=== PATIENT | female | born 1960 | race Caucasian/White ===

== ENCOUNTER 2017-08-30 14:08 | Emergency (ER) | payer SELFPAY ==
[2017-08-30 14:46] VITALS: BP 149/78; PULSE 88; RESP 18; TEMP 98.1; O2SAT 100
[2017-08-30] MEDS ORDERED: Sodium Chloride 0.9% 1,000 ML IV ONE (15:00)
[2017-08-30] MEDS ORDERED: Sodium Chloride 0.9% 1,000 ML ONE (15:14)
[2017-08-30 15:18] LABS: BASO # 0.1 K/uL (0.0-0.2); EOS # 0.3 K/uL (0.0-0.7); EOS % 2.2 % (0.0-4.0); HEMOGLOBIN 14.2 g/dL (11.0-16.0); LYMPH # 4.7 K/uL (1.0-4.3); LYMPH % 40.3 % (20.0-40.0); MEAN CELL VOLUME 83.3 fL (81.0-99.0); MEAN CORPUSCULAR HEMOGLOBIN 28.1 pg (27.0-31.0); MEAN CORPUSCULAR HGB CONC 33.7 g/dL (33.0-37.0); MONO # 0.9 K/uL (0.0-0.8); MONO % 7.9 % (0.0-10.0); NEUT # 5.6 K/uL (1.8-7.0); NEUT % 48.6 % (50.0-75.0); RBC 5.06 Mil/uL (3.80-5.20); RED CELL DISTRIBUTION WIDTH 13.9 % (11.5-14.5); WHITE BLOOD COUNT 11.6 K/uL (4.8-10.8)
[2017-08-30 15:25] LABS: SQUAMOUS EPITHIAL 2 /hpf (0-5); URINE BACTERIA MANY (<OCC); URINE BILIRUBIN NEGATIVE (NEGATIVE); URINE BLOOD 1+ (NEGATIVE); URINE CLARITY Clear (Clear); URINE COLOR Straw (YELLOW); URINE GLUCOSE (UA) NORMAL (Normal); URINE LEUKOCYTE ESTERASE NEG Leu/uL (Negative); URINE NITRATE NEGATIVE (NEGATIVE); URINE PROTEIN NEGATIVE (NEGATIVE); URINE UROBILINOGEN NORMAL mg/dL (0.2-1.0)
[2017-08-30 15:31] LABS: ALBUMIN 4.1 g/dL (3.5-5.0); ALT/SGPT 43 U/L (9-52); AST/SGOT 35 U/L (14-36); BLOOD UREA NITROGEN 9 mg/dL (7-17); CALCIUM 8.6 mg/dl (8.6-10.4); GFR AFRICAN-AMERICAN > 60; GFR NON-AFRICAN AMERICAN > 60; LIPASE 92 U/L (23-300)
--- NOTE | 2017-08-30 16:32 | C.PDOC ---
Time Seen by Provider: 08/30/17 14:48 Chief Complaint (Nursing): Abdominal Pain History Per: Patient, Family Onset/Duration Of Symptoms: Days (about 2 weeks) Current Symptoms Are (Timing): Still Present Severity: Moderate Location Of Pain/Discomfort: Epigastric Associated Symptoms: Nausea, Vomiting Exacerbating Factors: Food Alleviating Factors: None Additional History Per: Prior Records Past Medical History Reviewed: Historical Data, Nursing Documentation, Vital Signs Vital Signs: Last Vital Signs Temp 98.1 F 08/30/17 14:43 Pulse 88 08/30/17 14:43 Resp 18 08/30/17 14:43 BP 149/78 08/30/17 14:43 Pulse Ox 100 08/30/17 14:43 - Medical History PMH: No Chronic Diseases Other Surgeries: Hysterectomy Family History: States: Unknown Family Hx - Social History Hx Alcohol Use: No Hx Substance Use: No - Immunization History Hx Tetanus Toxoid Vaccination: No Hx Influenza Vaccination: No Hx Pneumococcal Vaccination: No Review Of Systems Except As Marked, All Systems Reviewed And Found Negative. Constitutional: Negative for: Fever Cardiovascular: Negative for: Chest Pain Respiratory: Negative for: Shortness of Breath Gastrointestinal: Positive for: Nausea, Vomiting, Abdominal Pain. Negative for : Melena, Hematochezia, Hematemesis Genitourinary: Negative for: Dysuria Musculoskeletal: Negative for: Neck Pain Skin: Negative for: Rash Neurological: Positive for: Headache. Negative for: Weakness, Numbness Physical Exam - Physical Exam Appears: Non-toxic, No Acute Distress Skin: Normal Color, Warm, Dry, No Rash Head: Atraumatic, Normacephalic Eye(s): bilateral: Normal Inspection, PERRL, EOMI Neck: Normal ROM, Supple Cardiovascular: Rhythm Regular Respiratory: Normal Breath Sounds, No Accessory Muscle Use Gastrointestinal/Abdominal: Soft, Tenderness (mild epigastric), No Guarding, No Rebound Back: No CVA Tenderness Extremity: Normal ROM Neurological/Psych: Oriented x3, Normal Motor, Normal Sensation ED Course And Treatment - Laboratory Results Result Diagrams: 08/30/17 15:13 08/30/17 15:13 O2 Sat by Pulse Oximetry: 100 Pulse Ox Interpretation: Normal Progress - Interventions Interventions:: Observation, Intravenous fluid - Medications Administered Oral: Antiemetic Intravenous: H-2 anay - Data Reviewed Data Reviewed: Lab, Old records - Patient Status Patient status: Mostly improved - Continuity of Care Discussed patient case with:: Patient, Family-HIPPA compliant, ED Nurse - Patient Plan Patient Plan: Discharge, F/U with PCP Disposition Counseled Patient/Family Regarding: Studies Performed, Diagnosis, Need For Followup, Rx Given - Disposition Referrals: [facility] [Outside] Disposition: HOME/ ROUTINE Disposition Time: 16:32 Condition: STABLE Additional Instructions: Follow up in the clinic within 1-2 weeks for further evaluation and treatment. Return to the ER if you develop fever, bloody or black stools, worsening of symptoms or if you have any other concerns. Prescriptions: Famotidine [Pepcid] 20 mg PO BID #30 tab Instructions: Gastritis (ED) Print Language: NORWEGIAN - Clinical Impression Clinical Impression: Epigastric discomfort, Nausea
== END 2017-08-30 16:42 | disposition home or self-care (01) ==
LOC: C.ER 14:08
DX: R10.13 Epigastric pain (principal); R11.0 Nausea
CPT/HCPCS: 80053; 81001; 83690; 85025; 96361; 96374; 99284; J7040

== ENCOUNTER 2017-09-13 13:51 | Emergency (ER) | payer OTHER ==
[2017-09-13 15:27] VITALS: RESP 18; TEMP 97.9; O2SAT 98
[2017-09-13] MEDS ORDERED: Sodium Chloride 0.9% 1,000 ML IV ONE (16:02)
--- NOTE | 2017-09-13 16:05 | C.PDOC ---
History Of Present Illness <Fabian Jhaveri - Last Filed: 09/13/17 18:44> <Mynor Zapata R - Last Filed: 09/13/17 21:36> 57 yo female, presents with epigastric abdominal pain x 1 mo. pt states started after taking ibuprofen for knee pain. no fevers, n/v/d, urinary changes. ( Fabian Jhaveri) <Fabian Jhaveri - Last Filed: 09/13/17 18:44> <Mynor Zapata R - Last Filed: 09/13/17 21:36> Time Seen by Provider: 09/13/17 15:45 Chief Complaint (Nursing): Abdominal Pain Past Medical History Reviewed: Historical Data, Nursing Documentation, Vital Signs - Medical History PMH: Depression Family History: States: Unknown Family Hx - Social History Hx Alcohol Use: No Hx Substance Use: No - Immunization History Hx Tetanus Toxoid Vaccination: No Hx Influenza Vaccination: No Hx Pneumococcal Vaccination: No <Fabian Jhaveri - Last Filed: 09/13/17 18:44> Vital Signs: Last Vital Signs Temp 97.9 F 09/13/17 15:22 Pulse 81 09/13/17 15:22 Resp 18 09/13/17 15:22 BP 141/84 09/13/17 15:22 Pulse Ox 98 09/13/17 18:45 Review Of Systems Except As Marked, All Systems Reviewed And Found Negative. Gastrointestinal: Positive for: Abdominal Pain <Fabian Jhaveri - Last Filed: 09/13/17 18:44> Physical Exam - Physical Exam Appears: Well, No Acute Distress Skin: Normal Color, Warm, Dry Eye(s): bilateral: Normal Inspection, PERRL, EOMI Nose: Normal Throat: Normal Neck: Normal Cardiovascular: Rhythm Regular Respiratory: Normal Breath Sounds Gastrointestinal/Abdominal: Normal Exam, Soft, Tenderness (epigastric), No Guarding, No Rebound Back: Normal Inspection Extremity: Normal ROM <Fabian Jhaveri - Last Filed: 09/13/17 18:44> ED Course And Treatment - Laboratory Results Result Diagrams: 09/13/17 16:35 09/13/17 16:35 O2 Sat by Pulse Oximetry: 98 <Fabian Jhaveri - Last Filed: 09/13/17 18:44> - Laboratory Results Result Diagrams: 09/13/17 16:35 09/13/17 16:35 <Mynor Zapata - Last Filed: 09/13/17 21:36> Medical Decision Making <Fabian Jhaveri - Last Filed: 09/13/17 18:44> <Mynor Zapata - Last Filed: 09/13/17 21:36> Medical Decision Making: ro gastrits, colitis, uti. labs imaging pending 645: pt reassesed. pain improving. pt now also reports avilez and is specificlaly requesting head ct. 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 (Fabian Jhaveri) Disposition <Fabian Jhaveri - Last Filed: 09/13/17 18:44> Counseled Patient/Family Regarding: Diagnosis - Disposition Disposition Time: 21:34 - POA Present On Arrival: None <Mynor Zapata - Last Filed: 09/13/17 21:36> - Disposition Referrals: [facility] [Outside] Condition: STABLE Prescriptions: Famotidine [Pepcid] 20 mg PO BID #20 tab Nitrofurantoin Macrocrystals [Macrobid] 1 cap PO BID #14 cap Instructions: Gastritis (GEN), Urinary Tract Infection in Women (ED) Forms: [facility] (Romanian) - Clinical Impression Clinical Impression: Abdominal pain, Gastritis, Urinary tract infection
[2017-09-13] MEDS ORDERED: Sodium Chloride 0.9% 1,000 ML ONE (16:23)
[2017-09-13 16:39] LABS: BASO # 0.1 K/uL (0.0-0.2); BASO % 0.8 % (0.0-2.0); EOS # 0.2 K/uL (0.0-0.7); EOS % 1.2 % (0.0-4.0); HEMOGLOBIN 14.9 g/dL (11.0-16.0); LYMPH % 32.8 % (20.0-40.0); MEAN CELL VOLUME 83.6 fL (81.0-99.0); MEAN CORPUSCULAR HEMOGLOBIN 27.7 pg (27.0-31.0); MEAN CORPUSCULAR HGB CONC 33.2 g/dL (33.0-37.0); MEAN PLATELET VOLUME 8.6 fL (7.2-11.7); MONO # 1.3 K/uL (0.0-0.8); MONO % 8.7 % (0.0-10.0); NEUT # 8.7 K/uL (1.8-7.0); NEUT % 56.5 % (50.0-75.0); NRBC % 0.3 % (0.0-2.0); RBC 5.39 Mil/uL (3.80-5.20); WHITE BLOOD COUNT 15.3 K/uL (4.8-10.8)
[2017-09-13 16:43] LABS: HCG,QUALITATIVE URINE NEGATIVE (NEGATIVE)
[2017-09-13 16:52] LABS: ALB/GLOB RATIO 0.9 (1.0-2.1); ALBUMIN 4.2 g/dL (3.5-5.0); ALT/SGPT 41 U/L (9-52); AST/SGOT 36 U/L (14-36); BLOOD UREA NITROGEN 10 mg/dL (7-17); CALCIUM 9.3 mg/dl (8.6-10.4); GFR AFRICAN-AMERICAN > 60; GFR NON-AFRICAN AMERICAN > 60; LIPASE 119 U/L (23-300)
[2017-09-13 16:56] LABS: SQUAMOUS EPITHIAL 3 /hpf (0-5); URINE BACTERIA FEW (<OCC); URINE BILIRUBIN NEGATIVE (NEGATIVE); URINE BLOOD 1+ (NEGATIVE); URINE CLARITY Hazy (Clear); URINE COLOR Amber (YELLOW); URINE GLUCOSE (UA) NORMAL (Normal); URINE LEUKOCYTE ESTERASE NEG Leu/uL (Negative); URINE NITRATE POSITIVE (NEGATIVE); URINE PROTEIN 1+ mg/dL (NEGATIVE); URINE UROBILINOGEN NORMAL mg/dL (0.2-1.0)
[2017-09-13] MEDS ORDERED: cefTRIAXone IV 1 gm in Dextros 50 ML IVPB ONE (17:12)
[2017-09-13] MEDS ORDERED: Iohexol 300 100 ML IJ ONE (18:09)
--- NOTE | 2017-09-13 20:02 | CT ---
EXAM: CT Head Without Intravenous Contrast CLINICAL HISTORY: 57 years old, female; Condition or disease; Headache; Additional info: GO TECHNIQUE: Axial computed tomography images of the head/brain without intravenous contrast. All CT scans at this facility use one or more dose reduction techniques, viz.: automated exposure control; ma/kV adjustment per patient size (including targeted exams where dose is matched to indication; i.e. head); or iterative reconstruction technique. COMPARISON: No relevant prior studies available. FINDINGS: Brain: No intracranial hemorrhage. No mass. No definite edema. Ventricles: No hydrocephalus. Bones/joints: No acute fracture. Soft tissues: Unremarkable. Lymph nodes: Probable intraparotid lymph nodes. Sinuses: No acute sinusitis. Mastoid air cells: No mastoid effusion. Orbits: Unremarkable as visualized. IMPRESSION: 1. No definite acute intracranial abnormality. 2. Incidental/non-acute findings are described above.
--- NOTE | 2017-09-13 20:07 | CT ---
EXAM: CT Abdomen and Pelvis With Intravenous Contrast CLINICAL HISTORY: 57 years old, female; Pain; Abdominal pain; Epigastric; Additional info: Upper abd pain TECHNIQUE: Axial computed tomography images of the abdomen and pelvis with intravenous contrast. All CT scans at this facility use one or more dose reduction techniques, viz.: automated exposure control; ma/kV adjustment per patient size (including targeted exams where dose is matched to indication; i.e. head); or iterative reconstruction technique. Coronal and sagittal reformatted images were created and reviewed. CONTRAST: 100 mL of OMNIPAQUE 300 administered intravenously. COMPARISON: No relevant prior studies available. FINDINGS: Lower thorax: Mild cardiomegaly. Minimal atelectasis/scarring. Small right diaphragmatic hernia containing fat. 0.3 cm RIGHT middle lobe nodule vs volume averaging. ABDOMEN: Liver: Mild fatty infiltration. Gallbladder and bile ducts: No calcified stones. No ductal dilation. Pancreas: No ductal dilation. No mass. Spleen: No splenomegaly. Adrenals: No mass. Kidneys and ureters: No mass. No hydronephrosis. Stomach and bowel: No definite mural thickening. No obstruction. Appendix: Normal caliber. No inflammation. PELVIS: Bladder: Unremarkable. Reproductive: Hysterectomy. ABDOMEN and PELVIS: Intraperitoneal space: No significant fluid collection. No free air. Bones/joints: Mild degenerative changes of spine. No acute fracture. Soft tissues: Unremarkable. Vasculature: Mild atherosclerotic disease. No aneurysm. Lymph nodes: No pathologically enlarged lymph nodes. IMPRESSION: 1. No definite acute intraabdominal abnormality. 2. Incidental/non-acute findings are described above.
[2017-09-13 21:51] VITALS: BP 165/95; PULSE 63
== END 2017-09-13 21:53 | disposition home or self-care (01) ==
LOC: C.ER 13:51
DX: N39.0 Urinary tract infection, site not specified (principal); K29.70 Gastritis, unspecified, without bleeding; R10.13 Epigastric pain
CPT/HCPCS: 70450; 74177; 80053; 81001; 83690; 84703; 85025; 96365; 96375; 99284; C9113; J0696; J2405; J7040; Q9967

== ENCOUNTER 2017-09-20 13:37 | Inpatient (IN) | payer OTHER ==
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
[2017-09-20 19:10] LABS: BASO # 0.1 K/uL (0.0-0.2); BASO % 0.7 % (0.0-2.0); EOS # 0.2 K/uL (0.0-0.7); EOS % 1.8 % (0.0-4.0); HEMOGLOBIN 13.9 g/dL (11.0-16.0); LYMPH # 5.4 K/uL (1.0-4.3); LYMPH % 42.5 % (20.0-40.0); MEAN CELL VOLUME 83.6 fL (81.0-99.0); MEAN CORPUSCULAR HGB CONC 33.5 g/dL (33.0-37.0); MEAN PLATELET VOLUME 8.2 fL (7.2-11.7); MONO # 1.1 K/uL (0.0-0.8); MONO % 8.9 % (0.0-10.0); NEUT # 5.9 K/uL (1.8-7.0); NEUT % 46.1 % (50.0-75.0); RBC 4.96 Mil/uL (3.80-5.20); WHITE BLOOD COUNT 12.7 K/uL (4.8-10.8)
[2017-09-20 19:13] LABS: HCG,QUALITATIVE URINE NEGATIVE (NEGATIVE)
[2017-09-20 19:17] LABS: SQUAMOUS EPITHIAL 2 /hpf (0-5); URINE BILIRUBIN NEGATIVE (NEGATIVE); URINE BLOOD NEGATIVE (NEGATIVE); URINE CLARITY Clear (Clear); URINE COLOR Yellow (YELLOW); URINE GLUCOSE (UA) NORMAL (Normal); URINE LEUKOCYTE ESTERASE NEG Leu/uL (Negative); URINE NITRATE NEGATIVE (NEGATIVE); URINE PROTEIN NEGATIVE (NEGATIVE); URINE UROBILINOGEN NORMAL mg/dL (0.2-1.0)
[2017-09-20 19:35] LABS: BARBITURATES, UR NEGATIVE (NEGATIVE); BENZODIAZEPINES, UR NEGATIVE (NEGATIVE); OPIATES, UR NEGATIVE (NEGATIVE)
[2017-09-20 19:35] LABS: ACETAMINOPHEN < 10.0 ug/mL (10.0-30.0); SALICYLATE < 1.0 mg/dL 1
[2017-09-20 19:38] LABS: PHENCYCLIDINE, UR NEGATIVE (NEGATIVE)
[2017-09-20 19:40] LABS: ALBUMIN 4.1 g/dL (3.5-5.0); ALT/SGPT 49 U/L (9-52); AST/SGOT 34 U/L (14-36); BLOOD UREA NITROGEN 11 mg/dL (7-17); GFR AFRICAN-AMERICAN > 60; GFR NON-AFRICAN AMERICAN > 60
[2017-09-20 23:46] VITALS: O2SAT 100
--- NOTE | 2017-09-21 01:47 | PCM.BM ---
<Marion Tolbert - Last Filed: 09/21/17 01:45> Treatment Plan Problems - Problems identified on initial assessmt Major Depression Date Initiated: 09/21/17 Time Initiated: 00:00 Assessment reference: NA Status: Active Treatment assets and liabiliti Patient Assests: cooperative, ADL independent, negotiates basic needs, cognitively intact Patient Liabilities: financial problems, poor support system, relationship conflicts, language/speech - Milieu Protocol Maintain good personal hygiene: daily Encourage regular showers, daily Remind patient to perform daily oral care, daily Assist patient to perform ADL's Conduct patient checks and document Observation sheet: Q15 minutes Maintain personal safety: every shift Educate patient to report safety concerns to staff, every shift Monitor environment for contraband/sharps Medication safety: Monitor for expected outcome, potential side effects: every shift, Assess barriers to learning: every shift, Assess readiness for medication education: every shift <Nancy Perez - Last Filed: 09/21/17 17:58> - Diagnosis (1) Schizophrenia Status: Acute Interventions: 09/21/17 17:58 * Assess/adjust medications daily and /or as needed * See patient on an individual basis 7x/week to assess status of hallucinations * Discuss risks, benefits, side effects and alternatives of medications * <Cassandra Nuenz - Last Filed: 09/22/17 11:22> Family Contact Family involvement: Family/SO is involved Family contact: Patient agrees to contact Family contact name: Marley Casarez-mother Family contacted how many times per week?: 1 - Goals for Treatment Patient goals for treatment: "I didn't sleep." Discharge/Continuing Care - Education Needs Education Needs: Patient Medication, Patient Coping Skills - Discharge Discharge Criteria: Tolerates medication w/o severe side effects, Reduction of target symptoms Discharge to:: Home, With Family - Treatment Team Participation Discussed with Family/SO: No Was Patient/Family/SO present at Treatment Team Meeting: Yes
--- NOTE | 2017-09-21 08:26 | RAD ---
Chest x-ray single frontal view History: Detox. Comparison: None available. Findings: Mild venous congestion. Mild patchy increased markings at the left lung base. Tortuous aorta. Mild cardiomegaly. Degenerative changes in the spine. Nodular density in the right upper lung zone may represent productive change at the end of the 1st right rib. Impression: Mild venous congestion. Mild patchy increased markings at the left lung base. Tortuous aorta. Mild cardiomegaly. Degenerative changes in the spine. Nodular density in the right upper lung zone may represent productive change at the end of the 1st right rib.
--- NOTE | 2017-09-21 09:28 | RAD ---
HISTORY: abdominal pain COMPARISON: No prior. FINDINGS: BOWEL: Stool retention.. No obstruction. No free air. BONES: . Left lateral marginal osteophytes L3-4 level present OTHER FINDINGS: Pelvic phleboliths inferred IMPRESSION: Stool retention. . No bowel obstruction
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
[2017-09-21] MEDS: Pantoprazole 40 mg EC Tab PO SCH (17:39)
[2017-09-21] MEDS: Bisacodyl 5mg EC Tab PO ONE ×2 (18:31→18:35)
[2017-09-22] MEDS: Pantoprazole 40 mg EC Tab PO SCH (09:59)
[2017-09-22] MEDS: Divalproex 250 mg DR Tab PO SCH ×2 (09:59→17:20)
--- NOTE | 2017-09-22 10:55 | PCM.PYCHPN ---
Psychiatric Progress Note - Psychiatric Progress Note Patient seen today, length of contact: 16 min Patient Chief Complaint: "My stomach hurts" Problems Identified/Issues Discussed: She is seen alone and with our SW who speaks Yoruba Chart reviewed Still a very poor historian; very thought disordered - loose, FoI, derailed etc. Paranoid delusions continue as well as likely somatic preoccupatieon but nevertheless we will get GI to see her Support given Medication Change: Yes (increase meds) Medical Record Reviewed: Yes Mental Status Examination - Cognitive Function Orientation: Person, Place, Time Memory: Impaired Attention: Poor Concentration: Poor Association: Loose Fund of Knowledge: Poor - Mood Mood: Anxious - Affect Affect: Constricted - Speech Speech: Pressured - Formal Thought Process Formal Thought Process: Paranoia, Loosening of associations, Flight of ideas - Suicidal Ideation Suicidal Ideation: No - Homicidal Ideation Homicidal Ideation: No Goal/Treatment Plan - Goal/Treatment Plan Need for Continued Stay: Discharge may exacerbated symptoms, Severe functional impairment Progress Toward Problem(s) and Goals/Treatment Plan: Haldol/cogentin for psychosis Depakote for manic sxs prn meds Seroquel for sleep Risks of meds discussed and she understood and agreed Support and psychoed given Attend groups After care to CRC or MCG
[2017-09-22] MEDS ORDERED: Magnesium Hydroxide Susp 30 ml UD PO ONE (15:30)
[2017-09-23] MEDS: Pantoprazole 40 mg EC Tab PO SCH (09:44)
[2017-09-23] MEDS: Divalproex 250 mg DR Tab PO SCH ×2 (09:44→17:17)
[2017-09-23] MEDS ORDERED: Bisacodyl 5mg EC Tab PO ONE (12:00)
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
[2017-09-23] MEDS ORDERED: POLYETHYLENE GLYCOL 3350 17 GM/Dose PACKET PO PRN (16:00)
[2017-09-24] MEDS: Pantoprazole 40 mg EC Tab PO SCH (09:57)
[2017-09-24] MEDS: Divalproex 250 mg DR Tab PO SCH ×2 (09:57→17:13)
[2017-09-24] MEDS ORDERED: Influenza Vaccine 60 mcg/0.5 mL SYR (4YR UP) IM ONE (10:00)
[2017-09-24] MEDS ORDERED: Pneumococcal 23-Valent Vaccine IM ONE (10:00)
--- NOTE | 2017-09-24 11:04 | PCM.PYCHPN ---
Psychiatric Progress Note - Psychiatric Progress Note Patient seen today, length of contact: 16 min Patient Chief Complaint: my stomach still hurts Problems Identified/Issues Discussed: Chart reviewed. Patient seen and examined at bedside. Patient continues to complain of abdominal pain, stating she feeds "acid" down her throat. Paranoid delusions continue as well as likely somatic preoccupation but she was seen by medicine. Support given Medication Change: Yes (increase meds) Medical Record Reviewed: Yes Mental Status Examination - Cognitive Function Orientation: Person, Place, Time Memory: Impaired Attention: Poor Concentration: Poor Association: Loose Fund of Knowledge: Poor - Mood Mood: Anxious - Affect Affect: Constricted - Speech Speech: Pressured - Formal Thought Process Formal Thought Process: Paranoia, Loosening of associations, Flight of ideas - Suicidal Ideation Suicidal Ideation: No - Homicidal Ideation Homicidal Ideation: No Goal/Treatment Plan - Goal/Treatment Plan Need for Continued Stay: Discharge may exacerbated symptoms, Severe functional impairment Progress Toward Problem(s) and Goals/Treatment Plan: Haldol/cogentin for psychosis Depakote for manic sxs prn meds Seroquel for sleep Risks of meds discussed and she understood and agreed Support and psychoed given Attend groups After care to [facility] or [facility] saw patient. Colace and Miralax PRN as patient has not had a bowel movement. Abdominal Xray - no obstruction, stool retention DW Dr. Perez, Cheyenne Ordoñez DO, PGY-1
[2017-09-24] MEDS ORDERED: Loperamide Hydrochloride 1 mg/5 ml Cup PO PRN (17:29)
[2017-09-25] MEDS: Pantoprazole 40 mg EC Tab PO SCH (09:26)
[2017-09-25] MEDS: Divalproex 250 mg DR Tab PO SCH ×2 (09:26→17:10)
--- NOTE | 2017-09-25 13:18 | PCM.PYCHPN ---
Psychiatric Progress Note - Psychiatric Progress Note Patient seen today, length of contact: 16 min Patient Chief Complaint: "Same" Problems Identified/Issues Discussed: She is seen with associate consulting engineer, chart reviewed Still preoccupied with GI issues Paranoid delusions continue Support given No SEs Medication Change: No Medical Record Reviewed: Yes Mental Status Examination - Cognitive Function Orientation: Person, Place, Time Memory: Impaired Attention: Poor Concentration: Poor Association: Loose Fund of Knowledge: Poor - Mood Mood: Anxious - Affect Affect: Constricted - Speech Speech: Pressured - Formal Thought Process Formal Thought Process: Paranoia, Loosening of associations, Flight of ideas - Suicidal Ideation Suicidal Ideation: No - Homicidal Ideation Homicidal Ideation: No Goal/Treatment Plan - Goal/Treatment Plan Need for Continued Stay: Discharge may exacerbated symptoms, Severe functional impairment Progress Toward Problem(s) and Goals/Treatment Plan: Haldol/cogentin for psychosis Depakote for manic sxs prn meds Seroquel for sleep Risks of meds discussed and she understood and agreed Support and psychoed given Attend groups After care to [facility] or [facility]
[2017-09-26] MEDS: Divalproex 250 mg DR Tab PO SCH ×2 (10:03→17:07)
[2017-09-26] MEDS: Pantoprazole 40 mg EC Tab PO SCH (10:03)
--- NOTE | 2017-09-26 13:25 | PCM.PYCHPN ---
Psychiatric Progress Note - Psychiatric Progress Note Patient seen today, length of contact: 16 min Patient Chief Complaint: "Pain" Problems Identified/Issues Discussed: The pt is seen, chart reviewed, case discussed with staff. The pt is compliant with medications and reports no side-effects. Symptoms are improving but needs more time to stabilize. support and psychoeducation given. Medication Change: No Medical Record Reviewed: Yes Mental Status Examination - Cognitive Function Orientation: Person, Place, Time Memory: Impaired Attention: Poor Concentration: Poor Association: Loose Fund of Knowledge: Poor - Mood Mood: Anxious - Affect Affect: Constricted - Speech Speech: Pressured - Formal Thought Process Formal Thought Process: Paranoia, Loosening of associations, Flight of ideas - Suicidal Ideation Suicidal Ideation: No - Homicidal Ideation Homicidal Ideation: No Goal/Treatment Plan - Goal/Treatment Plan Need for Continued Stay: Discharge may exacerbated symptoms, Severe functional impairment Progress Toward Problem(s) and Goals/Treatment Plan: Haldol/cogentin for psychosis Depakote for manic sxs prn meds Seroquel for sleep Risks of meds discussed and she understood and agreed Support and psychoed given Attend groups After care to [facility] or [facility]
[2017-09-27] MEDS: Pantoprazole 40 mg EC Tab PO SCH (09:57)
[2017-09-27] MEDS: Divalproex 250 mg DR Tab PO SCH ×2 (09:57→17:12)
--- NOTE | 2017-09-27 14:19 | PCM.PYCHPN ---
Psychiatric Progress Note - Psychiatric Progress Note Patient seen today, length of contact: 16 min Patient Chief Complaint: "my belly hurts" Problems Identified/Issues Discussed: The pt is seen, chart reviewed, case discussed with staff. The pt is compliant with medications. Symptoms improving and patient needs more time to stabilize. After care discussed, support and psychoeducation given. Pt reports that her abdomen still hurts her but she is sleeping well. Medication Change: No Medical Record Reviewed: Yes Mental Status Examination - Cognitive Function Orientation: Person, Place, Time Memory: Impaired Attention: WNL Concentration: Poor Association: Loose Fund of Knowledge: Poor Decription of patient's judgement and insights: poor - Mood Mood: Anxious - Affect Affect: Constricted - Speech Speech: Pressured - Formal Thought Process Formal Thought Process: Paranoia, Loosening of associations, Flight of ideas - Suicidal Ideation Suicidal Ideation: No - Homicidal Ideation Homicidal Ideation: No Goal/Treatment Plan - Goal/Treatment Plan Need for Continued Stay: Discharge may exacerbated symptoms, Severe functional impairment Progress Toward Problem(s) and Goals/Treatment Plan: Haldol/cogentin for psychosis Depakote for manic sxs prn meds Seroquel for sleep Risks of meds discussed and she understood and agreed Support and psychoed given Attend groups After care to [facility] or [facility] - Smoking Cessation Smoking Cessation Initiated: No Reason for not providing: patient does not smoke
[2017-09-28] MEDS: Divalproex 250 mg DR Tab PO SCH ×2 (09:28→17:37)
[2017-09-28] MEDS: Pantoprazole 40 mg EC Tab PO SCH (09:28)
--- NOTE | 2017-09-28 13:56 | PCM.PYCHPN ---
Psychiatric Progress Note - Psychiatric Progress Note Patient seen today, length of contact: 19 min Patient Chief Complaint: "I want to go home" Problems Identified/Issues Discussed: The pt is seen, chart reviewed, case discussed with staff. The pt is compliant with medications. Symptoms improving and patient needs more time to stabilize. After care discussed, support and psychoeducation given. Pt reports that her abdomen no longer hurts. She reports that she is sleeping and eating well. Patient is still disorganized and hyperverbal.She reports that she wants to go home to see her mother and father and go to [place]. Medication Change: No Medical Record Reviewed: Yes Mental Status Examination - Cognitive Function Orientation: Person, Place, Time Memory: Impaired Attention: WNL Concentration: Poor Association: Loose Fund of Knowledge: Poor Decription of patient's judgement and insights: poor - Mood Mood: Anxious - Affect Affect: Constricted - Speech Speech: Pressured - Formal Thought Process Formal Thought Process: Paranoia, Loosening of associations, Flight of ideas - Suicidal Ideation Suicidal Ideation: No - Homicidal Ideation Homicidal Ideation: No Goal/Treatment Plan - Goal/Treatment Plan Need for Continued Stay: Discharge may exacerbated symptoms, Severe functional impairment Progress Toward Problem(s) and Goals/Treatment Plan: Haldol/cogentin for psychosis Depakote for manic sxs prn meds Seroquel for sleep Risks of meds discussed and she understood and agreed Support and psychoed given Attend groups [facility] care [facility] - Smoking Cessation Smoking Cessation Initiated: No Reason for not providing: Patient does not smoke
--- NOTE | 2017-09-29 09:35 | PCM.BM ---
<FabricioCassandra Segura - Last Filed: 09/29/17 11:23> Treatment Plan Problems - Problems identified on initial assessmt Major Depression Date Initiated: 09/21/17 Time Initiated: 00:00 Assessment reference: NA Status: Active Treatment assets and liabiliti Patient Assests: cooperative, ADL independent, negotiates basic needs, cognitively intact Patient Liabilities: financial problems, poor support system, relationship conflicts, language/speech - Milieu Protocol Maintain good personal hygiene: daily Encourage regular showers, daily Remind patient to perform daily oral care, daily Assist patient to perform ADL's Conduct patient checks and document Observation sheet: Q15 minutes Maintain personal safety: every shift Educate patient to report safety concerns to staff, every shift Monitor environment for contraband/sharps Medication safety: Monitor for expected outcome, potential side effects: every shift, Assess barriers to learning: every shift, Assess readiness for medication education: every shift Milieu Narrative: Haldol/cogentin for psychosis Depakote for manic sxs prn meds Seroquel for sleep Risks of meds discussed and she understood and agreed Support and psychoed given Attend groups After care to [facility] or [facility] Family Contact Family involvement: Family/SO is involved Family contact: Patient agrees to contact Family contact name: Marley Casarez-mother Family contacted how many times per week?: 1 - Goals for Treatment Patient goals for treatment: "I didn't sleep." Discharge/Continuing Care - Education Needs Education Needs: Patient Medication, Patient Coping Skills - Discharge Discharge Criteria: Tolerates medication w/o severe side effects, Reduction of target symptoms Discharge to:: Home, With Family - Treatment Team Participation Patient/Family/SO Statement: Haldol/cogentin for psychosis Depakote for manic sxs prn meds Seroquel for sleep Risks of meds discussed and she understood and agreed Support and psychoed given Attend groups After care to [facility] or [facility] Discussed with Family/SO: No Was Patient/Family/SO present at Treatment Team Meeting: Yes Treatment Plan Review - Problem Major Depression Time Initiated: 00:00 - Discharge / Continuing Care Discharge to:: Home, With Family Behavioral Health Services: Partial hospital Health Needs: Medications/Rx <Nancy Perez - Last Filed: 09/29/17 12:11> - Diagnosis (1) Schizophrenia Status: Acute Interventions: 09/29/17 12:11 * Assess/adjust medications daily and /or as needed * See patient on an individual basis 7x/week to assess status of hallucinations * Discuss risks, benefits, side effects and alternatives of medications * <Yvette Anton - Last Filed: 09/29/17 14:54> Treatment Plan Review - Problem Major Depression Date Initiated: 09/29/17 Time Initiated: 12:00 Progress toward outcomes: improved
[2017-09-29] MEDS: Pantoprazole 40 mg EC Tab PO SCH (10:03)
[2017-09-29] MEDS: Divalproex 250 mg DR Tab PO SCH ×2 (10:03→17:21)
--- NOTE | 2017-09-29 14:40 | PCM.PYCHPN ---
Psychiatric Progress Note - Psychiatric Progress Note Patient seen today, length of contact: 15 min Patient Chief Complaint: "I am relaxed" Problems Identified/Issues Discussed: The pt is seen, chart reviewed, case discussed with staff. The pt is compliant with medications. Symptoms improving and patient needs more time to stabilize. After care discussed, support and psychoeducation given. The patient reports that she feels fine and relaxed and wants to go home to see her mom and the rest of her family. Pt reports that her abdomen no longer hurts. She reports that she is sleeping well with the medications and eating well. Medication Change: No Medical Record Reviewed: Yes Mental Status Examination - Cognitive Function Orientation: Person, Place, Time Memory: Impaired Attention: WNL Concentration: Poor Association: Loose Fund of Knowledge: Poor Decription of patient's judgement and insights: poor - Mood Mood: Neutral - Affect Affect: Constricted - Speech Speech: Pressured - Formal Thought Process Formal Thought Process: Paranoia, Loosening of associations, Flight of ideas - Suicidal Ideation Suicidal Ideation: No - Homicidal Ideation Homicidal Ideation: No Goal/Treatment Plan - Goal/Treatment Plan Need for Continued Stay: Discharge may exacerbated symptoms, Severe functional impairment Progress Toward Problem(s) and Goals/Treatment Plan: Haldol/cogentin for psychosis Depakote for manic sxs prn meds Seroquel for sleep Risks of meds discussed and she understood and agreed Support and psychoed given Attend groups [facility] care to [facility] [place] [facility] Estimated Date of D/C: 09/30/17 - Smoking Cessation Smoking Cessation Initiated: No Reason for not providing: Patient does not smoke
[2017-09-30 06:13] VITALS: BP 120/65; PULSE 64; RESP 16; TEMP 97.4
[2017-09-30] MEDS: Divalproex 250 mg DR Tab PO SCH (09:30)
[2017-09-30] MEDS: Pantoprazole 40 mg EC Tab PO SCH (09:30)
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
== END 2017-09-30 10:40 | disposition home or self-care (01) | DRG 430 ==
LOC: C.ER 13:37 → C.9E 22:23 → C.5E 22:23
PROVIDERS: ADMIT Psychiatry & Neurology Psychiatry; ATTEND Psychiatry & Neurology Psychiatry
DX: F20.9 Schizophrenia, unspecified (principal); F22 Delusional disorders; F43.10 Post-traumatic stress disorder, unspecified; K59.00 Constipation, unspecified; E66.9 Obesity, unspecified; Z68.38 Body mass index [BMI] 38.0-38.9, adult

== ENCOUNTER 2017-10-18 14:18 | Emergency (ER) | payer OTHER, SELFPAY ==
[2017-10-18 14:27] VITALS: BP 165/95; PULSE 83; RESP 20; TEMP 99.4; O2SAT 97
--- NOTE | 2017-10-18 14:54 | C.PDOC ---
History Of Present Illness 57 yr old female presents to the ER requesting seroquel refill. Patient states she is traveling back to [facility] and needs refills. Patient was seen by Dr. Perez during her recent stay for psych. Denies SI, HI, weakness or numbness. Time Seen by Provider: 10/18/17 14:33 Chief Complaint (Nursing): Med Refill History Per: Patient History/Exam Limitations: no limitations Past Medical History Reviewed: Historical Data, Nursing Documentation, Vital Signs Vital Signs: Last Vital Signs Temp 99.4 F 10/18/17 14:26 Pulse 83 10/18/17 14:26 Resp 20 10/18/17 14:26 BP 165/95 H 10/18/17 14:26 Pulse Ox 97 10/18/17 15:46 - Medical History PMH: Gastritis, Schizophrenia Family History: States: No Known Family Hx - Social History Hx Alcohol Use: No Hx Substance Use: No - Immunization History Hx Tetanus Toxoid Vaccination: No Hx Influenza Vaccination: No Hx Pneumococcal Vaccination: No Review Of Systems Except As Marked, All Systems Reviewed And Found Negative. Neurological: Negative for: Weakness, Numbness Psych: Negative for: Suicidal ideation Physical Exam - Physical Exam Appears: Non-toxic, No Acute Distress Skin: Warm, Dry Eye(s): bilateral: Normal Inspection, PERRL, EOMI Oral Mucosa: Moist Respiratory: Normal Breath Sounds Extremity: Normal ROM, No Swelling Neurological/Psych: Oriented x3, Normal Speech ED Course And Treatment O2 Sat by Pulse Oximetry: 97 (RA) Pulse Ox Interpretation: Normal Medical Decision Making Medical Decision Making: IMPRESSION: Med refill NOTE: * Crisis forensics team director spoke to patient PMD, Dr. Knight who states the patient has an appointment on October 22 * Dr. Knight is happy to fill the prescription if the patient brings the medicine bottle with her to the appointment * Patient is clear for discharge Disposition Counseled Patient/Family Regarding: Diagnosis, Need For Followup, Rx Given - Disposition Referrals: Ladan Knight MD [Staff Provider] - Disposition: HOME/ ROUTINE Disposition Time: 15:45 Condition: STABLE Additional Instructions: follow up with your doctor on 10/22 as scheduled Your doctor will refill your medication. Bring pill bottle with you call to make an appointment take medications as prescribed return to ER if symptoms worsens or progress Instructions: Medication Safety, Adult Forms: [facility] (Citizen [place]), General Discharge Instructions - Clinical Impression Clinical Impression: Medication refill - Scribe Statement The provider has reviewed the documentation as recorded by the Pauletteibe Trisha Paiz Provider Attestation: All medical record entries made by the Scribe were at my direction and personally dictated by me. I have reviewed the chart and agree that the record accurately reflects my personal performance of the history, physical exam, medical decision making, and the department course for this patient. I have also personally directed, reviewed, and agree with the discharge instructions and disposition.
== END 2017-10-18 15:57 | disposition home or self-care (01) ==
LOC: C.ER 14:18
DX: Z76.0 Encounter for issue of repeat prescription (principal); F20.9 Schizophrenia, unspecified

== ENCOUNTER 2017-12-29 12:46 | Inpatient (IN) | payer MEDICAID, SELFPAY ==
[2017-12-29] MEDS ORDERED: Sodium Chloride 0.9% 1,000 ML IV STA ×2 (13:36→15:19)
[2017-12-29] MEDS ORDERED: Sodium Chloride 0.9% 1,000 ML ONE (13:47)
--- NOTE | 2017-12-29 13:55 | RAD ---
HISTORY: fever COMPARISON: Chest radiograph dated 09/20/2017. TECHNIQUE: Chest PA and lateral FINDINGS: LUNGS: No active pulmonary disease. PLEURA: No significant pleural effusion identified. No pneumothorax apparent. CARDIOVASCULAR: Atherosclerotic aortic calcifications. Cardiomediastinal silhouette stably enlarged. OSSEOUS STRUCTURES: Unchanged. VISUALIZED UPPER ABDOMEN: Normal. OTHER FINDINGS: None. IMPRESSION: No active disease.
[2017-12-29 14:11] LABS: BASO # 0.2 K/uL (0.0-0.2); BASO % 0.8 % (0.0-2.0); HEMOGLOBIN 12.9 g/dL (11.0-16.0); LYMPH # 2.8 K/uL (1.0-4.3); LYMPH % 11.4 % (20.0-40.0); MEAN CELL VOLUME 84.1 fL (81.0-99.0); MEAN CORPUSCULAR HEMOGLOBIN 28.5 pg (27.0-31.0); MEAN CORPUSCULAR HGB CONC 33.9 g/dL (33.0-37.0); MEAN PLATELET VOLUME 7.4 fL (7.2-11.7); MONO # 2.8 K/uL (0.0-0.8); MONO % 11.2 % (0.0-10.0); NEUT # 18.9 K/uL (1.8-7.0); NEUT % 76.6 % (50.0-75.0); RBC 4.52 Mil/uL (3.80-5.20); RED CELL DISTRIBUTION WIDTH 14.6 % (11.5-14.5)
[2017-12-29 14:17] LABS: WHITE BLOOD COUNT 24.7 K/uL (4.8-10.8)
[2017-12-29 14:24] LABS: ALB/GLOB RATIO 0.8 (1.0-2.1); ALBUMIN 3.8 g/dL (3.5-5.0); ALT/SGPT 39 U/L (9-52); AST/SGOT 36 U/L (14-36); BLOOD UREA NITROGEN 15 mg/dL (7-17); CALCIUM 8.8 mg/dl (8.6-10.4); GFR AFRICAN-AMERICAN > 60; GFR NON-AFRICAN AMERICAN 52
--- NOTE | 2017-12-29 14:44 | C.PDOC ---
History Of Present Illness 57 year old female presents to the emergency department with complaints of not feeling well. Patient states she has a headache, sore throat, fever, cough, and abdominal discomfort. Time Seen by Provider: 12/29/17 13:20 Chief Complaint (Nursing): Flu-like Symptoms History Per: Patient History/Exam Limitations: no limitations Current Symptoms Are (Timing): Still Present Location Of Pain: Throat, Diffuse Myalgias, Headache Associated Symptoms: Fever, Sore Throat, Cough Past Medical History Reviewed: Historical Data, Nursing Documentation, Vital Signs Vital Signs: Last Vital Signs Temp 99.2 F 12/29/17 15:33 Pulse 94 H 12/29/17 15:33 Resp 18 12/29/17 15:33 BP 101/64 12/29/17 15:33 Pulse Ox 97 12/29/17 15:33 - Medical History PMH: Gastritis, Schizophrenia Denies: Depression (denies), Diabetes, Hepatitis, HIV, HTN, Seizures, Sexually Transmitted Disease Surgical History: No Surg Hx Family History: States: No Known Family Hx - Social History Hx Alcohol Use: No Hx Substance Use: No - Immunization History Hx Tetanus Toxoid Vaccination: No Hx Influenza Vaccination: No Hx Pneumococcal Vaccination: No Review Of Systems Except As Marked, All Systems Reviewed And Found Negative. Constitutional: Positive for: Fever ENT: Positive for: Throat Pain Respiratory: Positive for: Cough Gastrointestinal: Positive for: Abdominal Pain (discomfort) Neurological: Positive for: Headache Physical Exam - Physical Exam Appears: Non-toxic, In Acute Distress, Other Skin: Normal Color, Warm Head: Atraumatic, Normacephalic Eye(s): bilateral: Normal Inspection Throat: Normal Cardiovascular: Rhythm Regular Respiratory: Normal Breath Sounds (clear to auscultation) Gastrointestinal/Abdominal: Normal Exam, Soft, No Tenderness Neurological/Psych: Oriented x3, Normal Speech, Normal Cognition ED Course And Treatment - Laboratory Results Result Diagrams: 12/29/17 14:06 12/29/17 14:06 O2 Sat by Pulse Oximetry: 97 (RA) Pulse Ox Interpretation: Normal - Radiology CXR: Viewed By Me, Read By Radiologist CXR Interpretation: No: Infiltrates - Other Rad CXR Two Views X-Ray: Viewed By Me, Read By Radiologist Interpretation: HISTORY: fever. COMPARISON: Chest radiograph dated 2017. TECHNIQUE: Chest PA and lateral. FINDINGS: LUNGS: No active pulmonary disease. PLEURA: No significant pleural effusion identified. No pneumothorax apparent. CARDIOVASCULAR: Atherosclerotic aortic calcifications. Cardiomediastinal silhouette stably enlarged. OSSEOUS STRUCTURES: Unchanged. VISUALIZED UPPER ABDOMEN: Normal. OTHER FINDINGS: None. IMPRESSION: No active disease. Head CT X-Ray: Viewed By Me, Read By Radiologist Interpretation: Accession No. : [id number]. Patient Name / ID : HALLIE PARIKH / [id number]. Exam Date : 12/29/2017 17:25:24 ( Approved ). Study Comment : Sex / Age : F / 57Y. Creator : Michaela Robertson. Dictator : Geronimo Carlton MD. Medicare Coordinator : Padded Box Sewer : Geronimo Carlton MD. Approver2 : Report Date : 12/29/2017 17:43:07. My Comment : . PROCEDURE: CT HEAD WITHOUT CONTRAST. HISTORY: GO/fever/WBC 24.7. COMPARISON: 2017. TECHNIQUE: Axial computed tomography images were obtained through the head/brain without intravenous contrast. Radiation dose: Total exam DLP = 824.66 mGy-cm. This CT exam was performed using one or more of the following dose reduction techniques: Automated exposure control, adjustment of the mA and/ or kV according to patient size, and/or use of iterative reconstruction technique. FINDINGS: HEMORRHAGE: No intracranial hemorrhage. BRAIN: No mass effect or edema. No atrophy or chronic microvascular ischemic changes. VENTRICLES: Unremarkable. No hydrocephalus. CALVARIUM: Unremarkable. PARANASAL SINUSES: Mild chronic pansinusitis. MASTOID AIR CELLS: Unremarkable as visualized. No inflammatory changes. OTHER FINDINGS: None. IMPRESSION: No intracranial mass, hemorrhage or evidence of acute infarct . Mild chronic pansinusitis. Otherwise unremarkable. - CT Scan/US CT of Chest/abdomen/pelvis Other Rad Studies (CT/US): Read By Radiologist, Radiology Report Reviewed CT/US Interpretation: Accession No. : [id number]. Patient Name / ID : HALLIE PARIKH / [id number]. Exam Date : 12/29/2017 17:29:04 ( Approved ). Study Comment : Sex / Age : F / 57Y. Creator : Michaela Robertson. Dictator : Mahesh Baker MD. Medicare Coordinator : Padded Box Sewer : Mahesh Baker MD. Approver2 : Report Date : 12/29/2017 17:44:31. My Comment : . PROCEDURE: CT Chest, Abdomen and Pelvis with intravenous contrast. HISTORY: Chest and abdominal discomfort. Fever, elevated white count [id number]. COMPARISON: 09/13/2017 ct abdomen and pelvis. TECHNIQUE: IV dose administered : 100 cc Visipaque 320. Radiation dose: Total exam DLP = 1661.41 mGy-cm. This CT exam was performed using one or more of the following dose reduction techniques: Automated exposure control, adjustment of the mA and/or kV according to patient size, and/or use of iterative reconstruction technique. FINDINGS: CT CHEST WITH CONTRAST: LUNGS: Peripheral pleural-based pulmonary nodule right middle lobe 4 mm. MEDIASTINUM: Unremarkable. Normal caliber aorta and pulmonary arterial trunk. No aortic dissection. Normal size heart. LYMPH NODES: Unremarkable. PLEURA: Unremarkable. No pneumothorax. No pleural fluid. BONES: Unremarkable. OTHER FINDINGS: None. CT ABDOMEN AND PELVIS: LIVER: Hepatomegaly, hepatic steatosis without focal abnormality. GALLBLADDER AND BILE DUCTS: Unremarkable. PANCREAS: Unremarkable. No gross lesion or ductal dilatation. SPLEEN: Unremarkable. ADRENALS: Unremarkable. No mass. KIDNEYS AND URETERS: Right kidney: Edematous right kidney with perinephric stranding and inflammatory changes. Unilateral, right pyelonephritis is the most common etiology for this finding. There are no upper tract calculi. There are inflammatory changes investing the right ureter. Left kidney: Unremarkable. No hydronephrosis. No solid mass. VASCULATURE: Unremarkable. No aortic aneurysm. BOWEL: Unremarkable. No obstruction. No gross mural thickening. APPENDIX: Normal appendix. PERITONEUM: Unremarkable. No free fluid. No free air. LYMPH NODES: Unremarkable. No enlarged lymph nodes. BLADDER: Unremarkable. REPRODUCTIVE: Prior hysterectomy. BONES: No acute fracture. OTHER FINDINGS: None. IMPRESSION: Edematous right kidney, inflammatory changes suggest acute pyelonephritis and ureteritis. There is a single, solid, pulmonary nodule that is < 6 mm in size. According to the 2017 Fleischner criteria, if the patient is low risk, no routine follow-up is recommended. If the patient is high risk, an optional CT at 12 months is recommended. Progress Note: Plan: CMP. CBC. CXR Two Views. NaCl IV Fluids. Tylenol 650mg PO. Urinalysis. Influenza A B. blood test is significant for WBCs 24.7. On re-evaluation patient still feels weak, has chills. CT head and CT abdomen/ pelvis ordered and positive for acute Pyelonephritis. Casew as d/w Hospitalist certified professional controller who accepted patient to [place], but sts patient will go to the servivce of the next shift Hospitalist . Disposition - Disposition Disposition: HOSPITALIZED Disposition Time: 18:53 Condition: FAIR Forms: [facility] (Irish) - Clinical Impression Clinical Impression: Pyelonephritis - PA / CUT OFF MACHINE OPERATOR / Resident Statement MD/DO has reviewed & agrees with the documentation as recorded. - Scribe Statement The provider has reviewed the documentation as recorded by the Scribe (Dung Theodore) All medical record entries made by the Scribe were at my direction and personally dictated by me. I have reviewed the chart and agree that the record accurately reflects my personal performance of the history, physical exam, medical decision making, and the department course for this patient. I have also personally directed, reviewed, and agree with the discharge instructions and disposition. Decision To Admit - Pt Status Changed To: Hospital Disposition Of: Inpatient - Admit Certification Admit to Inpatient:: After my assessment, the patient will require hospitalization for at least two midnights. This is because of the severity of symptoms shown, intensity of services needed, and/or the medical risk in this patient being treated as an outpatient. - InPatient: Physician Admission Certification: I certify that this patient requires 2 or more midnights of care for the following reason:: patient will need more than 2 days of IV antibiotrics - . Bed Request Type: Regular Admitting Physician: Patrick Negrete Patient Diagnosis: Pyelonephritis
[2017-12-29 15:12] LABS: SQUAMOUS EPITHIAL 1 /hpf (0-5); URINE BACTERIA OCC (<OCC); URINE BILIRUBIN NEGATIVE (NEGATIVE); URINE BLOOD 1+ (NEGATIVE); URINE CLARITY Hazy (Clear); URINE COLOR Yellow (YELLOW); URINE GLUCOSE (UA) NORMAL (Normal); URINE LEUKOCYTE ESTERASE 3+ Leu/uL (Negative); URINE PROTEIN NEGATIVE (NEGATIVE); URINE UROBILINOGEN NORMAL mg/dL (0.2-1.0)
[2017-12-29] MEDS ORDERED: Iodixanol 320 MG/ML 100 ML BOTTLE IV ONE (17:00)
--- NOTE | 2017-12-29 18:03 | CT ---
PROCEDURE: CT HEAD WITHOUT CONTRAST. HISTORY: GO/fever/WBC 24.7 COMPARISON: 09/13/2017 TECHNIQUE: Axial computed tomography images were obtained through the head/brain without intravenous contrast. Radiation dose: Total exam DLP = 824.66 mGy-cm. This CT exam was performed using one or more of the following dose reduction techniques: Automated exposure control, adjustment of the mA and/or kV according to patient size, and/or use of iterative reconstruction technique. FINDINGS: HEMORRHAGE: No intracranial hemorrhage. BRAIN: No mass effect or edema. No atrophy or chronic microvascular ischemic changes. VENTRICLES: Unremarkable. No hydrocephalus. CALVARIUM: Unremarkable. PARANASAL SINUSES: Mild chronic pansinusitis. MASTOID AIR CELLS: Unremarkable as visualized. No inflammatory changes. OTHER FINDINGS: None. IMPRESSION: No intracranial mass, hemorrhage or evidence of acute infarct . Mild chronic pansinusitis. Otherwise unremarkable.
--- NOTE | 2017-12-29 18:14 | CT ---
PROCEDURE: CT Chest, Abdomen and Pelvis with intravenous contrast HISTORY: Chest and abdominal discomfort. Fever, elevated white count [id number] COMPARISON: 09/13/2017 ct abdomen and pelvis TECHNIQUE: IV dose administered: 100 cc Visipaque 320. Radiation dose: Total exam DLP = 1661.41 mGy-cm. This CT exam was performed using one or more of the following dose reduction techniques: Automated exposure control, adjustment of the mA and/or kV according to patient size, and/or use of iterative reconstruction technique. FINDINGS: CT CHEST WITH CONTRAST: LUNGS: Peripheral pleural-based pulmonary nodule right middle lobe 4 mm. MEDIASTINUM: Unremarkable. Normal caliber aorta and pulmonary arterial trunk. No aortic dissection. Normal size heart. LYMPH NODES: Unremarkable. PLEURA: Unremarkable. No pneumothorax. No pleural fluid. BONES: Unremarkable. OTHER FINDINGS: None. CT ABDOMEN AND PELVIS: LIVER: Hepatomegaly, hepatic steatosis without focal abnormality. GALLBLADDER AND BILE DUCTS: Unremarkable. PANCREAS: Unremarkable. No gross lesion or ductal dilatation. SPLEEN: Unremarkable. ADRENALS: Unremarkable. No mass. KIDNEYS AND URETERS: Right kidney: Edematous right kidney with perinephric stranding and inflammatory changes. Unilateral, right pyelonephritis is the most common etiology for this finding. There are no upper tract calculi. There are inflammatory changes investing the right ureter. Left kidney: Unremarkable. No hydronephrosis. No solid mass. VASCULATURE: Unremarkable. No aortic aneurysm. BOWEL: Unremarkable. No obstruction. No gross mural thickening. APPENDIX: Normal appendix. PERITONEUM: Unremarkable. No free fluid. No free air. LYMPH NODES: Unremarkable. No enlarged lymph nodes. BLADDER: Unremarkable. REPRODUCTIVE: Prior hysterectomy. BONES: No acute fracture. OTHER FINDINGS: None. IMPRESSION: Edematous right kidney, inflammatory changes suggest acute pyelonephritis and ureteritis. There is a single, solid, pulmonary nodule that is < 6 mm in size. According to the 2017 Fleischner criteria, if the patient is low risk, no routine follow-up is recommended. If the patient is high risk, an optional CT at 12 months is recommended.
[2017-12-29 18:43] LABS: BASO # 0.1 K/uL (0.0-0.2); BASO % 0.6 % (0.0-2.0); EOS % 0.1 % (0.0-4.0); HEMOGLOBIN 12.5 g/dL (11.0-16.0); LYMPH # 2.1 K/uL (1.0-4.3); MEAN CELL VOLUME 84.7 fL (81.0-99.0); MEAN CORPUSCULAR HEMOGLOBIN 28.8 pg (27.0-31.0); MEAN PLATELET VOLUME 7.3 fL (7.2-11.7); MONO # 0.5 K/uL (0.0-0.8); MONO % 2.1 % (0.0-10.0); NEUT # 18.5 K/uL (1.8-7.0); NEUT % 87.2 % (50.0-75.0); NRBC % 0.1 % (0.0-2.0); RBC 4.34 Mil/uL (3.80-5.20); RED CELL DISTRIBUTION WIDTH 14.4 % (11.5-14.5); WHITE BLOOD COUNT 21.2 K/uL (4.8-10.8)
[2017-12-29] MEDS ORDERED: cefTRIAXone IV 1 gm in Dextros 50 ML IVPB ONE (18:56)
[2017-12-29 19:09] VITALS: RESP 20
[2017-12-29 19:10] LABS: VENOUS BLOOD GAS BASE EXCESS -8.9 mmol/L (0.0-2.0); VENOUS BLOOD GAS PCO2 31 mmHg (40-60); VENOUS BLOOD GAS PO2 31 mm/Hg (30-55); VENOUS BLOOD PH 7.32 (7.32-7.43)
--- NOTE | 2017-12-29 19:29 | CP.PCM.HP ---
<Ryann Schreiber - Last Filed: 12/29/17 23:29> History of Present Illness - History of Present Illness History of Present Illness: H&P: 57 year old female with past medical history of gastritis and schizophrenia presented to hospital for "not feeling well". Family at bedside and help with history. Patient has hard time answering questions that are asked due to history of schizophrenia and tangential thought process. Patient returned from [facility] about 1 month ago. She states that since her return, she has had diffuse abdominal discomfort. Denies having any dysuria, hematuria , N/V/D/C. She also complains of dry cough x 1 month. She also c/o subjective fevers since this morning. CT scan of chest/abdomen/pelvis done on admission was positive for right sided pyelonpehritis. Denies having any CP, SOB, N/V/D/C , weight changes, LE swelling. She complains of a headache in the frontal region. Patient gets most of her medications from [facility]. PMHx: stated above sx: hysterectomy 5 years ago Social: Denies Meds: Lisinopril 5 mg po qd (prescribed by Dr. Knight), Lorazepam 2 mg po HS, Sertraline 50 mg po QD, Clarithromycin 500 mg po qd (?), Biperidin 2 mg po qd, Chloropromazine 100 mg po QD (?) PMD: none NKDA Present on Admission - Present on Admission Any Indicators Present on Admission: No Review of Systems - Constitutional Constitutional: Chills, Fever - EENT Eyes: absent: Blurred Vision, Change in Vision Nose/Mouth/Throat: absent: Nasal Congestion, Nasal Discharge - Cardiovascular Cardiovascular: absent: Chest Pain, Chest Pain with Activity, Dyspnea, Edema, Pedal Edema - Respiratory Respiratory: Cough. absent: Dyspnea, Dyspnea on Exertion, Wheezing, Chest Congestion - Gastrointestinal Gastrointestinal: Abdominal Pain. absent: Bloating, Constipation, Diarrhea, Hematemesis, Hematochezia, Nausea, Vomiting - Genitourinary Genitourinary: absent: Dysuria, Urinary Frequency - Musculoskeletal Musculoskeletal: absent: Back Pain, Numbness - Integumentary Integumentary: absent: Acne, Lesions, Rash, Wounds - Neurological Neurological: Headaches. absent: Abnormal Gait, Confusion, Focal Weakness, Frequent Falls, Weakness - Psychiatric Psychiatric: absent: Anxiety, Depression Past Patient History - Past Social History Smoking Status: Never Smoked Chewing Tobacco Use: No Cigar Use: No Alcohol: None Drugs: Denies - CARDIAC Hx Hypertension: No - PULMONARY Hx Tuberculosis: No - NEUROLOGICAL Hx Seizures: No - HEMATOLOGICAL/ONCOLOGICAL Hx Human Immunodeficiency Virus (HIV): No - INTEGUMENTARY Hx Dermatological Problems: Yes Other/Comment: pt claims that her brother gave her a pill (ibuporphen) that caused her stomach pain and a rash to her forearms bilat. skin dicoloration noted to both forearms. - MUSCULOSKELETAL/RHEUMATOLOGICAL Hx Musculoskeletal Disorders: Yes Other/Comment: pt claims that she is having problems walking r/t pain in both knees. states that she - GASTROINTESTINAL Hx Gastritis: Yes - GENITOURINARY/GYNECOLOGICAL Hx Sexually Transmitted Disorders: No - PSYCHIATRIC Hx Depression: No (denies) Hx Schizophrenia: Yes Hx Substance Use: No - SURGICAL HISTORY Hx Surgeries: Yes Hx Hysterectomy: Yes (2005) Other/Comment: hystorectomy r/t profuse bleeding that caused her sever blood loss and blood transfusions. - ANESTHESIA Hx Anesthesia: Yes Hx Anesthesia Reactions: No Meds Allergies/Adverse Reactions: Allergies Allergy/AdvReac Type Severity Reaction Status Date / Time No Known Allergies Allergy Verified 12/29/17 12:53 Physical Exam - Constitutional Appears: Non-toxic, No Acute Distress - Head Exam Head Exam: ATRAUMATIC - Eye Exam Eye Exam: EOMI - ENT Exam ENT Exam: Mucous Membranes Moist - Respiratory Exam Respiratory Exam: Clear to Auscultation Bilateral. absent: Accessory Muscle Use , Rales, Rhonchi, Wheezes, Respiratory Distress - Cardiovascular Exam Cardiovascular Exam: Tachycardia, REGULAR RHYTHM, +S1, +S2 - GI/Abdominal Exam GI & Abdominal Exam: Normal Bowel Sounds, Soft. absent: Distended, Firm, Guarding, Rigid, Tenderness - Extremities Exam Extremities exam: Negative for: pedal edema, tenderness - Back Exam Back exam: absent: CVA tenderness (L), CVA tenderness (R) - Neurological Exam Neurological exam: Alert, Oriented x3 - Psychiatric Exam Psychiatric exam: Normal Affect, Normal Mood Additional comments: tangential thought process - Skin Skin Exam: Dry, Intact, Normal Color, Warm Results - Vital Signs Recent Vital Signs: Last Vital Signs Temp 100.2 F H 12/29/17 17:50 Pulse 84 05/16/18 17:50 Resp 20 12/29/17 17:50 BP 144/82 12/29/17 17:50 Pulse Ox 97 12/29/17 18:55 - Labs Result Diagrams: 12/29/17 18:39 12/29/17 14:06 Labs: Laboratory Results - last 24 hr 12/29/17 12/29/17 12/29/17 14:06 14:06 14:06 WBC 24.7 H D RBC 4.52 Hgb 12.9 Hct 38.0 MCV 84.1 MCH 28.5 MCHC 33.9 RDW 14.6 H Plt Count 475 H D MPV 7.4 Neut % (Auto) 76.6 H Lymph % (Auto) 11.4 L Phelps % (Auto) 11.2 H Eos % (Auto) 0.0 Baso % (Auto) 0.8 Neut # (Auto) 18.9 H Lymph # (Auto) 2.8 Phelps # (Auto) 2.8 H Eos # (Auto) 0.0 Baso # (Auto) 0.2 Differential Comment pO2 VBG pH VBG pCO2 VBG HCO3 VBG Total CO2 VBG O2 Sat (Calc) VBG Base Excess VBG Potassium Glucose Lactate Sodium 139 Potassium 4.6 Chloride 98 Carbon Dioxide 24 Anion Gap 21 H BUN 15 Creatinine 1.1 Est GFR ( Amer) > 60 Est GFR (Non-Af Amer) 52 Random Glucose 108 H Calcium 8.8 Total Bilirubin 0.7 AST 36 ALT 39 Alkaline Phosphatase 208 H Total Protein 8.4 H Albumin 3.8 Globulin 4.6 H Albumin/Globulin Ratio 0.8 L Venous Blood Potassium Urine Color Urine Clarity Urine pH Ur Specific [place] Urine Protein Urine Glucose (UA) Urine Ketones Urine Blood Urine Nitrate Urine Bilirubin Urine Urobilinogen Ur Leukocyte Esterase Urine WBC (Auto) Urine RBC (Auto) Ur Squamous Epith Cells Urine Bacteria Influenza Typ A,B (EIA) Negative for flu a/b 12/29/17 12/29/17 12/29/17 15:02 18:39 19:06 WBC 21.2 H RBC 4.34 Hgb 12.5 Hct 36.8 MCV 84.7 MCH 28.8 MCHC 34.0 RDW 14.4 Plt Count 419 H MPV 7.3 Neut % (Auto) 87.2 H Lymph % (Auto) 10.0 L Phelps % (Auto) 2.1 Eos % (Auto) 0.1 Baso % (Auto) 0.6 Neut # (Auto) 18.5 H Lymph # (Auto) 2.1 Phelps # (Auto) 0.5 Eos # (Auto) 0.0 Baso # (Auto) 0.1 Differential Comment pO2 31 VBG pH 7.32 VBG pCO2 31 L VBG HCO3 16.8 VBG Total CO2 17.0 L VBG O2 Sat (Calc) 68.1 H VBG Base Excess -8.9 L VBG Potassium 2.7 L Glucose 78 Lactate 1.1 Sodium 138.0 Potassium Chloride 109.0 H Carbon Dioxide Anion Gap BUN Creatinine Est GFR ( Amer) Est GFR (Non-Af Amer) Random Glucose Calcium Total Bilirubin AST ALT Alkaline Phosphatase Total Protein Albumin Globulin Albumin/Globulin Ratio Venous Blood Potassium 2.7 L Urine Color Yellow Urine Clarity Hazy Urine pH 6.0 Ur Specific [place] 1.003 Urine Protein Negative Urine Glucose (UA) Normal Urine Ketones Negative Urine Blood 1+ H Urine Nitrate Negative Urine Bilirubin Negative Urine Urobilinogen Normal Ur Leukocyte Esterase 3+ H Urine WBC (Auto) 36 H Urine RBC (Auto) 2 Ur Squamous Epith Cells 1 Urine Bacteria Occ H Influenza Typ A,B (EIA) Assessment & Plan - Assessment and Plan (Free Text) Assessment: 57 year old female with past medical history of gastritis and schizophrenia is admitted for right sided pyelonphritis as seen on CT of chest/abd/pelvis. Patient was noted to be febrile on presentation and had leukocytosis with left shift. Lactic acid was normal. UA was also positive. Pyelonephritis - With mild ALVINO. BUN/Cr 15/1.1. Baseline Cr is 0.6 - Will start pt on IV abx: rocephin 1 mg IV Q24 - Will also start NS 150 cc - will await urine and blood cultures - Tylenol prn fever - morphine 1 mg IV q6 prn for pain Headache - CT of head on admission was negative Pulmonary nodule - CT of chest/abd/pelvis with IV contrast done on admission was positive for single pulmonary nodule <6mm. - If low risk, no F/U recommended. If high risk, recommend 12 months F/U CT Gastritis - Continue protonix 40 PO QD Schizophrenia - Will consider consulting psych for medication adjustment Insomnia - Lorazepam 2 mg PO HS Prophylaxis - Heparin - SCDs Case discussed with Dr. Negrete - Date & Time Date: 12/29/17 Time: 20:23 <Patrick Negrete P - Last Filed: 12/30/17 07:03> Results - Vital Signs Recent Vital Signs: Last Vital Signs Temp 98.7 F 12/30/17 00:00 Pulse 88 12/30/17 00:00 Resp 20 12/30/17 00:00 BP 92/59 L 12/30/17 00:00 Pulse Ox 96 12/30/17 00:00 - Labs Result Diagrams: 12/29/17 18:39 12/29/17 14:06 Labs: Laboratory Results - last 24 hr 12/29/17 12/29/17 12/29/17 14:06 14:06 14:06 WBC 24.7 H D RBC 4.52 Hgb 12.9 Hct 38.0 MCV 84.1 MCH 28.5 MCHC 33.9 RDW 14.6 H Plt Count 475 H D MPV 7.4 Neut % (Auto) 76.6 H Lymph % (Auto) 11.4 L Phelps % (Auto) 11.2 H Eos % (Auto) 0.0 Baso % (Auto) 0.8 Neut # (Auto) 18.9 H Lymph # (Auto) 2.8 Phelps # (Auto) 2.8 H Eos # (Auto) 0.0 Baso # (Auto) 0.2 Differential Comment pO2 VBG pH VBG pCO2 VBG HCO3 VBG Total CO2 VBG O2 Sat (Calc) VBG Base Excess VBG Potassium Glucose Lactate Sodium 139 Potassium 4.6 Chloride 98 Carbon Dioxide 24 Anion Gap 21 H BUN 15 Creatinine 1.1 Est GFR ( Amer) > 60 Est GFR (Non-Af Amer) 52 Random Glucose 108 H Calcium 8.8 Total Bilirubin 0.7 AST 36 ALT 39 Alkaline Phosphatase 208 H Total Protein 8.4 H Albumin 3.8 Globulin 4.6 H Albumin/Globulin Ratio 0.8 L Venous Blood Potassium Urine Color Urine Clarity Urine pH Ur Specific [place] Urine Protein Urine Glucose (UA) Urine Ketones Urine Blood Urine Nitrate Urine Bilirubin Urine Urobilinogen Ur Leukocyte Esterase Urine WBC (Auto) Urine RBC (Auto) Ur Squamous Epith Cells Urine Bacteria Influenza Typ A,B (EIA) Negative for flu a/b 12/29/17 12/29/17 12/29/17 15:02 18:39 19:06 WBC 21.2 H RBC 4.34 Hgb 12.5 Hct 36.8 MCV 84.7 MCH 28.8 MCHC 34.0 RDW 14.4 Plt Count 419 H MPV 7.3 Neut % (Auto) 87.2 H Lymph % (Auto) 10.0 L Phelps % (Auto) 2.1 Eos % (Auto) 0.1 Baso % (Auto) 0.6 Neut # (Auto) 18.5 H Lymph # (Auto) 2.1 Phelps # (Auto) 0.5 Eos # (Auto) 0.0 Baso # (Auto) 0.1 Differential Comment pO2 31 VBG pH 7.32 VBG pCO2 31 L VBG HCO3 16.8 VBG Total CO2 17.0 L VBG O2 Sat (Calc) 68.1 H VBG Base Excess -8.9 L VBG Potassium 2.7 L Glucose 78 Lactate 1.1 Sodium 138.0 Potassium Chloride 109.0 H Carbon Dioxide Anion Gap BUN Creatinine Est GFR ( Amer) Est GFR (Non-Af Amer) Random Glucose Calcium Total Bilirubin AST ALT Alkaline Phosphatase Total Protein Albumin Globulin Albumin/Globulin Ratio Venous Blood Potassium 2.7 L Urine Color Yellow Urine Clarity Hazy Urine pH 6.0 Ur Specific [place] 1.003 Urine Protein Negative Urine Glucose (UA) Normal Urine Ketones Negative Urine Blood 1+ H Urine Nitrate Negative Urine Bilirubin Negative Urine Urobilinogen Normal Ur Leukocyte Esterase 3+ H Urine WBC (Auto) 36 H Urine RBC (Auto) 2 Ur Squamous Epith Cells 1 Urine Bacteria Occ H Influenza Typ A,B (EIA) 12/29/17 21:37 WBC RBC Hgb Hct MCV MCH MCHC RDW Plt Count MPV Neut % (Auto) Lymph % (Auto) Phelps % (Auto) Eos % (Auto) Baso % (Auto) Neut # (Auto) Lymph # (Auto) Phelps # (Auto) Eos # (Auto) Baso # (Auto) Differential Comment pO2 VBG pH VBG pCO2 VBG HCO3 VBG Total CO2 VBG O2 Sat (Calc) VBG Base Excess VBG Potassium Glucose Lactate Sodium Potassium Chloride Carbon Dioxide Anion Gap BUN Creatinine Est GFR ( Amer) Est GFR (Non-Af Amer) Random Glucose Calcium Total Bilirubin AST ALT Alkaline Phosphatase Total Protein Albumin Globulin Albumin/Globulin Ratio Venous Blood Potassium Urine Color Yellow Urine Clarity Hazy Urine pH 6.0 Ur Specific [place] 1.043 H Urine Protein 1+ H Urine Glucose (UA) Normal Urine Ketones Negative Urine Blood 1+ H Urine Nitrate Negative Urine Bilirubin Negative Urine Urobilinogen Normal Ur Leukocyte Esterase 3+ H Urine WBC (Auto) 49 H Urine RBC (Auto) 25 H Ur Squamous Epith Cells 9 H Urine Bacteria Few H Influenza Typ A,B (EIA) Attending/Attestation - Attestation I have personally seen and examined this patient.: Yes I have fully participated in the care of the patient.: Yes I have reviewed all pertinent clinical information: Yes Notes (Text): Assessment Pyelonephritis, h/o schizophrenia, meds need to be confirmed H/o chronic urinary incontenence Plan IV rocephin GI dvt prophylaxis confirm home meds Catheterized sample for and culture.
[2017-12-29] MEDS ORDERED: Morphine 4 MG/ML VIAL IVP PRN (20:05)
[2017-12-29] MEDS ORDERED: Sodium Chloride 0.9% 1,000 ML IV SCH (20:15)
[2017-12-29] MEDS: Sodium Chloride 0.9% 1,000 ML IV SCH (21:38)
[2017-12-29 21:55] LABS: SQUAMOUS EPITHIAL 9 /hpf (0-5); URINE BACTERIA FEW (<OCC); URINE BILIRUBIN NEGATIVE (NEGATIVE); URINE BLOOD 1+ (NEGATIVE); URINE CLARITY Hazy (Clear); URINE COLOR Yellow (YELLOW); URINE GLUCOSE (UA) NORMAL (Normal); URINE LEUKOCYTE ESTERASE 3+ Leu/uL (Negative); URINE PROTEIN 1+ mg/dL (NEGATIVE); URINE UROBILINOGEN NORMAL mg/dL (0.2-1.0)
[2017-12-30] MEDS: Sodium Chloride 0.9% 1,000 ML IV SCH ×4 (04:00→23:27)
[2017-12-30 07:03] LABS: BASO # 0.1 K/uL (0.0-0.2); BASO % 0.4 % (0.0-2.0); EOS # 0.2 K/uL (0.0-0.7); EOS % 0.6 % (0.0-4.0); HEMOGLOBIN 12.1 g/dL (11.0-16.0); LYMPH # 2.5 K/uL (1.0-4.3); MEAN CELL VOLUME 86.5 fL (81.0-99.0); MEAN CORPUSCULAR HEMOGLOBIN 28.2 pg (27.0-31.0); MEAN CORPUSCULAR HGB CONC 32.6 g/dL (33.0-37.0); MEAN PLATELET VOLUME 8.1 fL (7.2-11.7); MONO # 1.4 K/uL (0.0-0.8); MONO % 4.6 % (0.0-10.0); NEUT # 27.3 K/uL (1.8-7.0); NEUT % 86.4 % (50.0-75.0); PLATELET COUNT 416 K/uL (130-400); RBC 4.29 Mil/uL (3.80-5.20); RED CELL DISTRIBUTION WIDTH 14.8 % (11.5-14.5); WHITE BLOOD COUNT 31.5 K/uL (4.8-10.8)
[2017-12-30 07:14] LABS: INR 1.5; PROTHROMBIN TIME 16.6 SECONDS (9.7-12.2)
[2017-12-30 07:34] LABS: ALB/GLOB RATIO 0.8 (1.0-2.1); CALCIUM 7.7 mg/dl (8.6-10.4)
[2017-12-30 09:51] LABS: BANDS 16 % (0-2); LYMPHOCYTE 5 % (20-40); METAMYELOCYTE 1 % (0-0); MONOCYTE 2 % (0-10); NEUTROPHIL 76 % (50-75); PLATELET ESTIMATE SLIGHTLY INCREASED (NORMAL); TOTAL CELLS COUNTED 100
[2017-12-30] MEDS: Pantoprazole 40 mg EC Tab PO SCH (10:10)
--- NOTE | 2017-12-30 11:10 | CP.PCM.PN ---
<Sarah Luo - Last Filed: 12/30/17 14:18> Subjective - Date & Time of Evaluation Date of Evaluation: 12/30/17 Time of Evaluation: 07:00 - Subjective Subjective: Medicine Progress Notes: Patient was seen and examined at bedside in the AM. Patient is oriented x3. Patient states she had fever, chills and abdominal pain overnight. Objective - Vital Signs/Intake and Output Vital Signs (last 24 hours): Temp Pulse Resp BP Pulse Ox 98.5 F 89 20 129/82 100 12/30/17 07:39 12/30/17 07:39 12/30/17 07:39 12/30/17 07:39 12/30/17 07:39 Intake and Output: 12/30/17 12/30/17 06:59 18:59 Intake Total 1500 Balance 1500 - Medications Medications: Current Medications Acetaminophen (Tylenol 325mg Tab) 650 mg PO Q6 PRN PRN Reason: Fever >100.4 F Last Admin: 12/29/17 20:37 Dose: 650 mg Heparin Sodium (Porcine) (Heparin) 5,000 units SC Q12 [facility] Last Admin: 12/30/17 10:10 Dose: 5,000 units Sodium Chloride (Sodium Chloride 0.9%) 1,000 mls @ 150 mls/hr IV .Q6H40M [facility] Last Admin: 12/30/17 10:12 Dose: 150 mls/hr Imipenem/Cilastatin Sodium 500 (mg/ Dextrose) 100 mls @ 100 mls/hr IVPB Q6H [facility] PRN Reason: Protocol Lisinopril (Zestril) 5 mg PO DAILY [facility] Last Admin: 12/30/17 10:10 Dose: 5 mg Lorazepam (Ativan) 2 mg PO HS [facility] Last Admin: 12/29/17 23:55 Dose: 2 mg Morphine Sulfate (Morphine) 1 mg IVP Q6H PRN PRN Reason: Pain, Mild (1-3) Ondansetron HCl (Zofran Inj) 4 mg IVP Q6 PRN PRN Reason: Nausea/Vomiting Pantoprazole Sodium (Protonix Ec Tab) 40 mg PO DAILY [facility] Last Admin: 12/30/17 10:10 Dose: 40 mg Pneumococcal Polyvalent Vaccine (Pneumovax 23 Vaccine) 0.5 ml IM .ONCE ONE Stop: 12/31/17 10:01 Sertraline HCl (Zoloft) 50 mg PO DAILY [facility] Last Admin: 12/30/17 10:10 Dose: 50 mg - Labs Labs: 12/30/17 06:56 12/30/17 06:59 PT 16.6 SECONDS (9.7-12.2) H 12/30/17 06:56 INR 1.5 12/30/17 06:56 APTT 34 SECONDS (21-34) 12/30/17 06:56 - Constitutional Appears: No Acute Distress - Head Exam Head Exam: ATRAUMATIC, NORMAL INSPECTION - Eye Exam Eye Exam: EOMI, Normal appearance - ENT Exam ENT Exam: Mucous Membranes Moist - Respiratory Exam Respiratory Exam: Clear to Ausculation Bilateral, NORMAL BREATHING PATTERN - Cardiovascular Exam Cardiovascular Exam: REGULAR RHYTHM, +S1, +S2 - GI/Abdominal Exam GI & Abdominal Exam: Soft, Tenderness, Normal Bowel Sounds Additional comments: obese abdomen - Extremities Exam Extremities Exam: Normal Inspection - Neurological Exam Neurological Exam: Alert, Awake, Oriented x3 - Psychiatric Exam Psychiatric exam: Anxious - Skin Skin Exam: Normal Color Assessment and Plan - Assessment and Plan (Free Text) Assessment: 1.) Pyelonephritis - Medications: * Flagyl 500mg q8h * Primaxin 500mg q6h * Tylenol 650mg q6 prn for fever * Morphine 1mg q6 prn for pain * Zofran 4mg q6prn for nausea - ID Consult: Dr. Mcclure --> help appreciated - Urine culture preliminary: gram negative krupa - Blood culture preliminary: gram negative rods and anaerobic 2.) Leukocystosis secondary to Pyelonephritis - WBC 24.7 --> 21.2 3.) Headache - CT of head on admission was negative 4.) Pulmonary nodule - CT of chest/abd/pelvis with IV contrast done on admission was positive for single pulmonary nodule <6mm. - If low risk, no F/U recommended. If high risk, recommend 12 months F/U CT 5.) History of Gastritis - Continue protonix 40 PO QD 6.) History of Schizophrenia - Psych Consult: Dr. Perez --> help appreciated - Klonopin .5mg po bid - Seroquel 100mg po hs 7.) Insomnia - Lorazepam 2mg po hs 8.) History of HTN - Lisinopril 5mg po hs 9.) History of Depression - Zoloft 50mg po daily 10.) Prophylaxis - Heparin 5,000units sc q12h - SCDs - Protonix 40mg po daily Case discussed with Dr. Nohemi Luo PGY-1 <Geronimo Song H - Last Filed: 12/30/17 19:05> Objective - Vital Signs/Intake and Output Vital Signs (last 24 hours): Temp Pulse Resp BP Pulse Ox 99.8 F H 79 20 125/70 100 12/30/17 17:22 12/30/17 17:22 12/30/17 17:22 12/30/17 17:22 12/30/17 17:22 Intake and Output: 12/30/17 12/31/17 18:59 06:59 Intake Total 2800 Output Total 900 Balance 1900 - Medications Medications: Current Medications Acetaminophen (Tylenol 325mg Tab) 650 mg PO Q6 PRN PRN Reason: Fever >100.4 F Last Admin: 12/29/17 20:37 Dose: 650 mg Clonazepam (Klonopin) 0.5 mg PO BID [facility] Last Admin: 12/30/17 17:26 Dose: 0.5 mg Heparin Sodium (Porcine) (Heparin) 5,000 units SC Q12 [facility] Last Admin: 12/30/17 10:10 Dose: 5,000 units Sodium Chloride (Sodium Chloride 0.9%) 1,000 mls @ 150 mls/hr IV .Q6H40M [facility] Last Admin: 12/30/17 17:28 Dose: Not Given Imipenem/Cilastatin Sodium 500 (mg/ Sodium Chloride) 100 mls @ 100 mls/hr IVPB Q6H [facility] PRN Reason: Protocol Last Admin: 12/30/17 17:30 Dose: 100 mls/hr Metronidazole (Flagyl) 500 mg in 100 mls @ 100 mls/hr IVPB Q8H [facility] PRN Reason: Protocol Last Admin: 12/30/17 18:52 Dose: 100 mls/hr Lisinopril (Zestril) 5 mg PO DAILY [facility] Last Admin: 12/30/17 10:10 Dose: 5 mg Lorazepam (Ativan) 2 mg PO HS [facility] Last Admin: 12/29/17 23:55 Dose: 2 mg Morphine Sulfate (Morphine) 1 mg IVP Q6H PRN PRN Reason: Pain, Mild (1-3) Ondansetron HCl (Zofran Inj) 4 mg IVP Q6 PRN PRN Reason: Nausea/Vomiting Pantoprazole Sodium (Protonix Ec Tab) 40 mg PO DAILY [facility] Last Admin: 12/30/17 10:10 Dose: 40 mg Pneumococcal Polyvalent Vaccine (Pneumovax 23 Vaccine) 0.5 ml IM .ONCE ONE Stop: 12/31/17 10:01 Quetiapine Fumarate (Seroquel) 100 mg PO [facility] Sertraline HCl (Zoloft) 50 mg PO DAILY [facility] Last Admin: 12/30/17 10:10 Dose: 50 mg - Labs Labs: 12/30/17 06:56 12/30/17 06:59 PT 16.6 SECONDS (9.7-12.2) H 12/30/17 06:56 INR 1.5 12/30/17 06:56 APTT 34 SECONDS (21-34) 12/30/17 06:56 Attending/Attestation - Attestation I have personally seen and examined this patient.: Yes I have fully participated in the care of the patient.: Yes I have reviewed all pertinent clinical information, including history, physical exam and plan: Yes Notes (Text): 12/30/17 19:05 Medical attending: Patient was seen and examined by me. Agree with the above note by the medical coordinator pesticide use. At this time the patient is on IV antibiotics including Primaxin and Flagyl. Her urine culture and blood cultures are suggesting gram-negative rods. We are currently pending the sensitivities at this moment. The patient seemed to be more conversant and alert and able to answer questions. From what I understand when she was first seen by the medical team overnight they had a very difficult time with review of systems at that time. Thank you very much, Geronimo Song
--- NOTE | 2017-12-30 12:19 | PCM.PSYCH ---
Initial Psychiatric Evaluation - Initial Psychiatric Evaluation Type of Admission: Voluntary Legal Status: Capacity Chief Complaint (in patient's own words): "I have pain" History of Present Illness and Precipitating Events: She is seen, chart reviewed and case discussed. She is known from a recent psych admission. Translation is done by a [place] medical coordinator pesticide use, however, the patient is somewhat thought disordered and the information below is gathered from her as well as ED notes, again. Patient is a 57 y/o [id number] female. She is single and lives with her family here. She moved from [facility] not long ago. Patient reported that she had started having abdominal pain when her brother had given her a pill causing her GI symptoms butthat was long ago, and it is the exact same thing she had told us previously on psych admission. Patient believes that since she took the pill she felt that some section of her stomach is . Patient stated that her family had brought her to this country from [facility] and told her to work if she wanted to eat. She was with her father Patient has disorganized speech at times, repeats self and at times and preoccupied with her GI upset. Patient stated that in [facility] her neighbor who was selling food across the street from her was killed in front of her. She has some PTSD sxs. Patient denied SI/HI, admits to hearing voices when she was in [facility]. Patient states that the voices gave her a choice to come to the [facility]. She is not on any meds now and it is not clear if really went to the referral we had made at [facility]. When questioned she kept saying she went to "[facility]," maybe it's in the same building (?) Denies drug, alcohol use Past psych hx: Admissions in [facility], dx'ed with schizophrenia Medical hx: Denies. Obese Family psych hx: Denies Current Medications: Active Medications Generic Name Dose Route Start Last Admin Trade Name Freq PRN Reason Stop Dose Admin Acetaminophen 650 mg 12/29/17 20:05 12/29/17 20:37 Tylenol 325mg Tab PO 650 mg Q6 PRN Administration Fever >100.4 F Heparin Sodium (Porcine) 5,000 units 12/29/17 22:00 12/30/17 10:10 Heparin SC 5,000 units Q12 [facility] Administration Sodium Chloride 1,000 mls @ 150 mls/hr 12/29/17 20:47 12/30/17 10:12 Sodium Chloride 0.9% IV 150 mls/hr .Q6H40M [facility] Administration Imipenem/Cilastatin Sodium 500 100 mls @ 100 mls/hr 12/30/17 12:30 mg/ Sodium Chloride IVPB Q6H [facility] Protocol Lisinopril 5 mg 12/30/17 10:00 12/30/17 10:10 Zestril PO 5 mg DAILY [facility] Administration Lorazepam 2 mg 12/29/17 23:00 12/29/17 23:55 Ativan PO 2 mg HS [facility] Administration Morphine Sulfate 1 mg 12/29/17 20:05 Morphine IVP Q6H PRN Pain, Mild (1-3) Ondansetron HCl 4 mg 12/29/17 20:05 Zofran Inj IVP Q6 PRN Nausea/Vomiting Pantoprazole Sodium 40 mg 12/30/17 10:00 12/30/17 10:10 Protonix Ec Tab PO 40 mg DAILY [facility] Administration Pneumococcal Polyvalent Vaccine 0.5 ml 12/31/17 10:00 Pneumovax 23 Vaccine IM 12/31/17 10:01 .ONCE ONE Sertraline HCl 50 mg 12/30/17 10:00 12/30/17 10:10 Zoloft PO 50 mg DAILY [facility] Administration Past Psychiatric History - Past Psychiatric History Previous Treatment History: Inpatient Pertinent Medical Hx (Current Medical&Sleep Prob, Allergies): Allergies Allergy/AdvReac Type Severity Reaction Status Date / Time No Known Allergies Allergy Verified 12/29/17 12:53 Lisinopril [Zestril] 5 mg PO DAILY 12/29/17 Lorazepam [Ativan] 2 mg PO HS 12/29/17 Sertraline [Zoloft] 50 mg PO DAILY 12/29/17 chlorproMAZINE [chlorpromazine HCl] 100 mg PO DAILY 12/29/17 Review of Systems - Neurological Neurological: UNREMARKABLE - Psychiatric Psychiatric: Abnormal Sleep Pattern, Anxiety, Confusion, Difficulty Concentrating, Paranoia. absent: Hallucinations, Homicidal Ideation, Suicidal Ideation Mental Status Examination - Personal Presentation Personal Presentation: Looks stated age (she is odd and child-like times. ) - Affect Affect: Constricted - Motor Activity Motor Activity: Other (restless, at times mildly agitated) - Reliability in Providing Information Reliability in Providing Information: Poor, due to alteration in thoughts, Poor , due to cognitve impairment - Speech Speech: Disorganized - Mood Mood: Anxious - Formal Thought Process Formal Thought Process: Paranoia (likely), Loosening of associations - Cognitive Functions Orientation: Person, Place, Time Sensorium: Alert Attention/Concentration: Easily distracted Abstract Thinking: Antoine Estimate of Intelligence: Below average (likely borderline ID) Judgement: Intact, as evidence by: Insight regarding need for hospitalization Memory: Remote impaired as evidenced by: Inability to recall sig life events - Risk Risk: Diminished functioning - Strength & Assets Inventory Strength & Assets Inventory: Family support, Cooperative - Limitations Limitations: Other DSM 5 DX - DSM 5 DSM 5 Diagnosis: Schizophrenia, acute exacerbation r/o borderline intell. disability? - Recommended/Plan of Treatment Treatment Recommendations and Plan of Treatment: Seroquel to be increased Klonopin for agitation Zoloft continued b/c she is sad about her condition, but low dose Support and psychoed Family contact 33 min
[2017-12-30] MEDS: metroNIDAZOLE IV 500 mg/100 ml 500 MG/100 ML BAG IVPB SCH ×2 (18:52→23:35)
--- NOTE | 2017-12-30 19:12 | CP.PCM.CON ---
History of Present Illness - History of Present Illness History of Present Illness: 57 year old female presented to hospital for "not feeling well". Patient returned from [facility] about 1 month ago. She states that since her return, she has had diffuse abdominal discomfort. Denies having any dysuria, hematuria , N/V/D/C. She also complains of dry cough x 1 month. She also c/o subjective fevers since this morning. CT scan of chest/abdomen/pelvis done on admission was positive for right sided pyelonpehritis. started on IV Primaxin cultures pending Blood / urine + gram neg rods PMHx: stated above sx: hysterectomy 5 years ago Social: Denies Meds: Lisinopril 5 mg po qd (prescribed by Dr. Knight), Lorazepam 2 mg po HS, Sertraline 50 mg po QD, Clarithromycin 500 mg po qd (?), Biperidin 2 mg po qd, Chloropromazine 100 mg po QD (?) PMD: none Past Patient History - Past Social History Smoking Status: Never Smoked Chewing Tobacco Use: No Cigar Use: No Alcohol: None Drugs: Denies - CARDIAC Hx Hypertension: No - PULMONARY Hx Tuberculosis: No - NEUROLOGICAL Hx Seizures: No - HEENT Other/Comment: uses eyeglasses - RENAL Hx Chronic Kidney Disease: No - ENDOCRINE/METABOLIC Hx Endocrine Disorders: No - HEMATOLOGICAL/ONCOLOGICAL Hx Human Immunodeficiency Virus (HIV): No - INTEGUMENTARY Hx Dermatological Problems: Yes Other/Comment: pt claims that her brother gave her a pill (ibuporphen) that caused her stomach pain and a rash to her forearms bilat. skin dicoloration noted to both forearms. - MUSCULOSKELETAL/RHEUMATOLOGICAL Hx Musculoskeletal Disorders: Yes Other/Comment: pt claims that she is having problems walking r/t pain in both knees. states that she - GASTROINTESTINAL Hx Gastritis: Yes - GENITOURINARY/GYNECOLOGICAL Hx Sexually Transmitted Disorders: No - PSYCHIATRIC Hx Depression: No (denies) Hx Schizophrenia: Yes Hx Substance Use: No - SURGICAL HISTORY Hx Surgeries: Yes Hx Hysterectomy: Yes (2005) Other/Comment: hystorectomy r/t profuse bleeding that caused her sever blood loss and blood transfusions. - ANESTHESIA Hx Anesthesia: Yes Hx Anesthesia Reactions: No Meds Allergies/Adverse Reactions: Allergies Allergy/AdvReac Type Severity Reaction Status Date / Time No Known Allergies Allergy Verified 12/29/17 12:53 - Medications Medications: Current Medications Acetaminophen (Tylenol 325mg Tab) 650 mg PO Q6 PRN PRN Reason: Fever >100.4 F Last Admin: 12/29/17 20:37 Dose: 650 mg Clonazepam (Klonopin) 0.5 mg PO BID [facility] Last Admin: 12/30/17 17:26 Dose: 0.5 mg Heparin Sodium (Porcine) (Heparin) 5,000 units SC Q12 [facility] Last Admin: 12/30/17 10:10 Dose: 5,000 units Sodium Chloride (Sodium Chloride 0.9%) 1,000 mls @ 150 mls/hr IV .Q6H40M [facility] Last Admin: 12/30/17 17:28 Dose: Not Given Imipenem/Cilastatin Sodium 500 (mg/ Sodium Chloride) 100 mls @ 100 mls/hr IVPB Q6H [facility] PRN Reason: Protocol Last Admin: 12/30/17 17:30 Dose: 100 mls/hr Metronidazole (Flagyl) 500 mg in 100 mls @ 100 mls/hr IVPB Q8H [facility] PRN Reason: Protocol Last Admin: 12/30/17 18:52 Dose: 100 mls/hr Lisinopril (Zestril) 5 mg PO DAILY [facility] Last Admin: 12/30/17 10:10 Dose: 5 mg Lorazepam (Ativan) 2 mg PO HS [facility] Last Admin: 12/29/17 23:55 Dose: 2 mg Morphine Sulfate (Morphine) 1 mg IVP Q6H PRN PRN Reason: Pain, Mild (1-3) Ondansetron HCl (Zofran Inj) 4 mg IVP Q6 PRN PRN Reason: Nausea/Vomiting Pantoprazole Sodium (Protonix Ec Tab) 40 mg PO DAILY [facility] Last Admin: 12/30/17 10:10 Dose: 40 mg Pneumococcal Polyvalent Vaccine (Pneumovax 23 Vaccine) 0.5 ml IM .ONCE ONE Stop: 12/31/17 10:01 Quetiapine Fumarate (Seroquel) 100 mg PO HS [facility] Sertraline HCl (Zoloft) 50 mg PO DAILY [facility] Last Admin: 12/30/17 10:10 Dose: 50 mg Results - Vital Signs Recent Vital Signs: Last Vital Signs Temp 99.8 F H 12/30/17 17:22 Pulse 79 12/30/17 17:22 Resp 20 12/30/17 17:22 BP 125/70 12/30/17 17:22 Pulse Ox 100 12/30/17 17:22 - Labs Result Diagrams: 12/30/17 06:56 12/30/17 06:59 Labs: Laboratory Results - last 24 hr 12/29/17 12/29/17 12/30/17 19:06 21:37 06:56 WBC 31.5 H RBC 4.29 Hgb 12.1 Hct 37.1 MCV 86.5 MCH 28.2 MCHC 32.6 L RDW 14.8 H Plt Count 416 H MPV 8.1 Neut % (Auto) 86.4 H Lymph % (Auto) 8.0 L [place] % (Auto) 4.6 Eos % (Auto) 0.6 Baso % (Auto) 0.4 Neut # (Auto) 27.3 H Lymph # (Auto) 2.5 [place] # (Auto) 1.4 H Eos # (Auto) 0.2 Baso # (Auto) 0.1 Neutrophils % (Manual) 76 H Band Neutrophils % 16 H* Lymphocytes % (Manual) 5 L Monocytes % (Manual) 2 Metamyelocytes % 1 H Platelet Estimate Slightly increased H RBC Morphology Normal PT INR APTT pO2 31 VBG pH 7.32 VBG pCO2 31 L VBG HCO3 16.8 VBG Total CO2 17.0 L VBG O2 Sat (Calc) 68.1 H VBG Base Excess -8.9 L VBG Potassium 2.7 L Sodium 138.0 Chloride 109.0 H Glucose 78 Lactate 1.1 Potassium Carbon Dioxide Anion Gap BUN Creatinine Est GFR ( Amer) Est GFR (Non-Af Amer) POC Glucose (mg/dL) Random Glucose Calcium Total Bilirubin AST ALT Alkaline Phosphatase Total Protein Albumin Globulin Albumin/Globulin Ratio Venous Blood Potassium 2.7 L Urine Color Yellow Urine Clarity Hazy Urine pH 6.0 Ur Specific [place] 1.043 H Urine Protein 1+ H Urine Glucose (UA) Normal Urine Ketones Negative Urine Blood 1+ H Urine Nitrate Negative Urine Bilirubin Negative Urine Urobilinogen Normal Ur Leukocyte Esterase 3+ H Urine WBC (Auto) 49 H Urine RBC (Auto) 25 H Ur Squamous Epith Cells 9 H Urine Bacteria Few H 12/30/17 12/30/17 12/30/17 06:56 06:59 07:14 WBC RBC Hgb Hct MCV MCH MCHC RDW Plt Count MPV Neut % (Auto) Lymph % (Auto) [place] % (Auto) Eos % (Auto) Baso % (Auto) Neut # (Auto) Lymph # (Auto) [place] # (Auto) Eos # (Auto) Baso # (Auto) Neutrophils % (Manual) Band Neutrophils % Lymphocytes % (Manual) Monocytes % (Manual) Metamyelocytes % Platelet Estimate RBC Morphology PT 16.6 H INR 1.5 APTT 34 pO2 VBG pH VBG pCO2 VBG HCO3 VBG Total CO2 VBG O2 Sat (Calc) VBG Base Excess VBG Potassium Sodium 140 Chloride 107 Glucose Lactate Potassium 3.9 Carbon Dioxide 21 L Anion Gap 17 BUN 14 Creatinine 1.2 Est GFR ( Amer) 56 Est GFR (Non-Af Amer) 47 POC Glucose (mg/dL) 114 H Random Glucose 92 Calcium 7.7 L Total Bilirubin 0.6 AST 67 H D ALT 38 Alkaline Phosphatase 249 H Total Protein 6.6 Albumin 3.0 L D Globulin 3.6 Albumin/Globulin Ratio 0.8 L Venous Blood Potassium Urine Color Urine Clarity Urine pH Ur Specific [place] Urine Protein Urine Glucose (UA) Urine Ketones Urine Blood Urine Nitrate Urine Bilirubin Urine Urobilinogen Ur Leukocyte Esterase Urine WBC (Auto) Urine RBC (Auto) Ur Squamous Epith Cells Urine Bacteria 12/30/17 12/30/17 11:05 16:49 WBC RBC Hgb Hct MCV MCH MCHC RDW Plt Count MPV Neut % (Auto) Lymph % (Auto) [place] % (Auto) Eos % (Auto) Baso % (Auto) Neut # (Auto) Lymph # (Auto) [place] # (Auto) Eos # (Auto) Baso # (Auto) Neutrophils % (Manual) Band Neutrophils % Lymphocytes % (Manual) Monocytes % (Manual) Metamyelocytes % Platelet Estimate RBC Morphology PT INR APTT pO2 VBG pH VBG pCO2 VBG HCO3 VBG Total CO2 VBG O2 Sat (Calc) VBG Base Excess VBG Potassium Sodium Chloride Glucose Lactate Potassium Carbon Dioxide Anion Gap BUN Creatinine Est GFR ( Amer) Est GFR (Non-Af Amer) POC Glucose (mg/dL) 161 H 122 H Random Glucose Calcium Total Bilirubin AST ALT Alkaline Phosphatase Total Protein Albumin Globulin Albumin/Globulin Ratio Venous Blood Potassium Urine Color Urine Clarity Urine pH Ur Specific [place] Urine Protein Urine Glucose (UA) Urine Ketones Urine Blood Urine Nitrate Urine Bilirubin Urine Urobilinogen Ur Leukocyte Esterase Urine WBC (Auto) Urine RBC (Auto) Ur Squamous Epith Cells Urine Bacteria
--- NOTE | 2017-12-30 22:37 | CARD ---
APPROVED REPORT EKG Measurement Heart [id number] <Conclusion> Sinus tachycardia Otherwise normal ECG
[2017-12-31] MEDS: Sodium Chloride 0.9% 1,000 ML IV SCH ×3 (06:58→18:28)
--- NOTE | 2017-12-31 08:11 | RAD ---
Chest x-ray single frontal view History: Pulmonary edema. Comparison: 12/29/2017 Findings: Moderate venous congestion. Bilateral paratracheal prominence likely represents prominent vasculature. Upper lobe granulomatous changes. Bilateral hilar prominence. Enlarged ectatic aorta. Cardiomegaly. Degenerative changes in the spine and shoulders. Impression: Moderate venous congestion. Bilateral paratracheal prominence likely represents prominent vasculature. Upper lobe granulomatous changes. Bilateral hilar prominence. Enlarged ectatic aorta. Cardiomegaly.
[2017-12-31 08:22] LABS: BASO # 0.1 K/uL (0.0-0.2); BASO % 0.3 % (0.0-2.0); EOS # 0.2 K/uL (0.0-0.7); EOS % 0.8 % (0.0-4.0); HEMOGLOBIN 10.5 g/dL (11.0-16.0); LYMPH % 12.3 % (20.0-40.0); MEAN CELL VOLUME 85.4 fL (81.0-99.0); MEAN CORPUSCULAR HEMOGLOBIN 29.4 pg (27.0-31.0); MEAN CORPUSCULAR HGB CONC 34.5 g/dL (33.0-37.0); MONO # 1.5 K/uL (0.0-0.8); MONO % 6.3 % (0.0-10.0); NEUT # 19.4 K/uL (1.8-7.0); NEUT % 80.3 % (50.0-75.0); NRBC % 0.1 % (0.0-2.0); RBC 3.56 Mil/uL (3.80-5.20); RED CELL DISTRIBUTION WIDTH 14.8 % (11.5-14.5); WHITE BLOOD COUNT 24.2 K/uL (4.8-10.8)
[2017-12-31] MEDS: metroNIDAZOLE IV 500 mg/100 ml 500 MG/100 ML BAG IVPB SCH ×3 (08:37→23:56)
[2017-12-31 08:44] LABS: ALB/GLOB RATIO 0.7 (1.0-2.1); ALBUMIN 2.6 g/dL (3.5-5.0); ALT/SGPT 40 U/L (9-52); AST/SGOT 30 U/L (14-36); BLOOD UREA NITROGEN 10 mg/dL (7-17); CALCIUM 7.9 mg/dl (8.6-10.4); GFR AFRICAN-AMERICAN > 60; GFR NON-AFRICAN AMERICAN 52
[2017-12-31] MEDS: Pantoprazole 40 mg EC Tab PO SCH (09:43)
[2017-12-31] MEDS ORDERED: Pneumococcal 23-Valent Vaccine IM ONE (10:00)
--- NOTE | 2017-12-31 12:14 | CP.PCM.PN ---
<Cheyenne Ordoñez - Last Filed: 12/31/17 13:38> Subjective - Date & Time of Evaluation Date of Evaluation: 12/31/17 Time of Evaluation: 07:00 - Subjective Subjective: Medicine Progress Note Patient was seen and examined at bedside in the AM. Patient is groggy,lethargic likely 2/2 seroquel. Patient states she had fever, chills and abdominal pain overnight. Objective - Vital Signs/Intake and Output Vital Signs (last 24 hours): Temp Pulse Resp BP Pulse Ox 99.1 F 92 H 20 98/68 L 99 12/31/17 08:36 12/31/17 08:00 12/31/17 08:00 12/31/17 08:00 12/31/17 08:00 Intake and Output: 12/31/17 12/31/17 06:59 18:59 Intake Total 2050 Output Total 3500 Balance -1450 - Medications Medications: Current Medications Acetaminophen (Tylenol 325mg Tab) 650 mg PO Q6 PRN PRN Reason: Fever >100.4 F Last Admin: 12/31/17 02:45 Dose: 650 mg Acetaminophen (Tylenol 325mg Tab) 650 mg PO Q6 [facility] Stop: 01/01/18 00:01 Last Admin: 12/31/17 08:36 Dose: 650 mg Clonazepam (Klonopin) 0.5 mg PO BID PRN PRN Reason: Agitation Heparin Sodium (Porcine) (Heparin) 5,000 units SC Q12 [facility] Last Admin: 12/31/17 09:47 Dose: 5,000 units Sodium Chloride (Sodium Chloride 0.9%) 1,000 mls @ 150 mls/hr IV .Q6H40M [facility] Last Admin: 12/31/17 06:58 Dose: 150 mls/hr Imipenem/Cilastatin Sodium 500 (mg/ Sodium Chloride) 100 mls @ 100 mls/hr IVPB Q6H [facility] PRN Reason: Protocol Last Admin: 12/31/17 06:22 Dose: 100 mls/hr Metronidazole (Flagyl) 500 mg in 100 mls @ 100 mls/hr IVPB Q8H [facility] PRN Reason: Protocol Last Admin: 12/31/17 08:37 Dose: 100 mls/hr Lisinopril (Zestril) 5 mg PO DAILY [facility] Last Admin: 12/31/17 09:43 Dose: 5 mg Lorazepam (Ativan) 2 mg PO HS [facility] Last Admin: 12/30/17 21:24 Dose: 2 mg Morphine Sulfate (Morphine) 1 mg IVP Q6H PRN PRN Reason: Pain, Mild (1-3) Ondansetron HCl (Zofran Inj) 4 mg IVP Q6 PRN PRN Reason: Nausea/Vomiting Pantoprazole Sodium (Protonix Ec Tab) 40 mg PO DAILY [facility] Last Admin: 12/31/17 09:43 Dose: 40 mg Quetiapine Fumarate (Seroquel) 50 mg PO [facility] Sertraline HCl (Zoloft) 50 mg PO DAILY [facility] Last Admin: 12/31/17 09:42 Dose: 50 mg - Labs Labs: 12/31/17 08:08 12/31/17 08:08 PT 16.6 SECONDS (9.7-12.2) H 12/30/17 06:56 INR 1.5 12/30/17 06:56 APTT 34 SECONDS (21-34) 12/30/17 06:56 - Additional Findings Additional findings: - Constitutional Appears: No Acute Distress - Head Exam Head Exam: ATRAUMATIC, NORMAL INSPECTION - Eye Exam Eye Exam: EOMI, Normal appearance - ENT Exam ENT Exam: Mucous Membranes Moist - Respiratory Exam Respiratory Exam: Clear to Ausculation Bilateral, NORMAL BREATHING PATTERN - Cardiovascular Exam Cardiovascular Exam: REGULAR RHYTHM, +S1, +S2 - GI/Abdominal Exam GI & Abdominal Exam: Soft, Tenderness, Normal Bowel Sounds Additional comments: obese abdomen - Extremities Exam Extremities Exam: Normal Inspection - Neurological Exam Neurological Exam: Alert, Awake, Oriented x3 - Psychiatric Exam Psychiatric exam: Anxious - Skin Skin Exam: Normal Color Assessment and Plan - Assessment and Plan (Free Text) Plan: 1.) Pyelonephritis - Medications: * Flagyl 500mg q8h * Primaxin 500mg q6h * Tylenol 650mg q6 prn for fever * Morphine 1mg q6 prn for pain * Zofran 4mg q6prn for nausea - ID Consult: Dr. Mcclure --> help appreciated - Urine culture preliminary: gram negative krupa 12/29 E. coli, repeat straight catheterization 12/29 no growth, f/u repeat UC 12/31/17 - Blood culture preliminary: gram negative rods 12/29, f/u repeat BC 12/31/17 2.) Leukocystosis secondary to Pyelonephritis - WBC 24.7 --> 31.5 with bands 16 --> 24.2 3.) Headache - CT of head on admission was negative 4.) Pulmonary nodule - CT of chest/abd/pelvis with IV contrast done on admission was positive for single pulmonary nodule <6mm. - If low risk, no F/U recommended. If high risk, recommend 12 months F/U CT 5.) History of Gastritis - Continue protonix 40 PO QD 6.) History of Schizophrenia - Psych Consult: Dr. Perez --> help appreciated - Klonopin 0.5mg po bid PRN for agitation - Seroquel 100mg po hs - decreased to 50mg PO QHS due to lethargy 7.) Insomnia - Lorazepam 2mg po hs 8.) History of HTN - Lisinopril 5mg po hs 9.) History of Depression - Zoloft 50mg po daily 10.) Prophylaxis - Heparin 5,000units sc q12h - SCDs - Protonix 40mg po daily Disposition: Follow up and . DW Dr. Song, Cheyenne Ordoñez PGY-1 <Geronimo Song - Last Filed: 12/31/17 17:36> Objective - Vital Signs/Intake and Output Vital Signs (last 24 hours): Temp Pulse Resp BP Pulse Ox 98.4 F 85 20 137/75 99 12/31/17 15:00 12/31/17 15:00 12/31/17 15:00 12/31/17 15:00 12/31/17 15:00 Intake and Output: 12/31/17 12/31/17 06:59 18:59 Intake Total 2050 1200 Output Total 3500 Balance -1450 1200 - Medications Medications: Current Medications Acetaminophen (Tylenol 325mg Tab) 650 mg PO Q6 PRN PRN Reason: Fever >100.4 F Last Admin: 12/31/17 02:45 Dose: 650 mg Acetaminophen (Tylenol 325mg Tab) 650 mg PO Q6 [facility] Stop: 01/01/18 00:01 Last Admin: 12/31/17 17:18 Dose: 650 mg Clonazepam (Klonopin) 0.5 mg PO BID PRN PRN Reason: Agitation Heparin Sodium (Porcine) (Heparin) 5,000 units SC Q12 [facility] Last Admin: 12/31/17 09:47 Dose: 5,000 units Sodium Chloride (Sodium Chloride 0.9%) 1,000 mls @ 150 mls/hr IV .Q6H40M [facility] Last Admin: 12/31/17 15:03 Dose: Not Given Imipenem/Cilastatin Sodium 500 (mg/ Sodium Chloride) 100 mls @ 100 mls/hr IVPB Q6H [facility] PRN Reason: Protocol Last Admin: 12/31/17 12:12 Dose: 100 mls/hr Metronidazole (Flagyl) 500 mg in 100 mls @ 100 mls/hr IVPB Q8H [facility] PRN Reason: Protocol Last Admin: 12/31/17 16:55 Dose: 100 mls/hr Lisinopril (Zestril) 5 mg PO DAILY [facility] Last Admin: 12/31/17 09:43 Dose: 5 mg Lorazepam (Ativan) 2 mg PO HS [facility] Last Admin: 12/30/17 21:24 Dose: 2 mg Morphine Sulfate (Morphine) 1 mg IVP Q6H PRN PRN Reason: Pain, Mild (1-3) Ondansetron HCl (Zofran Inj) 4 mg IVP Q6 PRN PRN Reason: Nausea/Vomiting Pantoprazole Sodium (Protonix Ec Tab) 40 mg PO DAILY [facility] Last Admin: 12/31/17 09:43 Dose: 40 mg Quetiapine Fumarate (Seroquel) 50 mg PO HS [facility] Sertraline HCl (Zoloft) 50 mg PO DAILY [facility] Last Admin: 12/31/17 09:42 Dose: 50 mg - Labs Labs: 12/31/17 08:08 12/31/17 08:08 PT 16.6 SECONDS (9.7-12.2) H 12/30/17 06:56 INR 1.5 12/30/17 06:56 APTT 34 SECONDS (21-34) 12/30/17 06:56 Attending/Attestation - Attestation I have personally seen and examined this patient.: Yes I have fully participated in the care of the patient.: Yes I have reviewed all pertinent clinical information, including history, physical exam and plan: Yes Notes (Text): 12/31/17 17:33 Medical attending: Patient was seen and examined by me. Agree with the above note by the medical record coder At this time we need to continue with the IV abx. The cultures are positive for a gram negative infection. She appears more leathergic today than yesterday. We will try to hold some of the sedating agents for the time being and continue to monitor. Geronimo Song
--- NOTE | 2017-12-31 13:31 | PCM.PYCHPN ---
Psychiatric Progress Note - Psychiatric Progress Note Patient seen today, length of contact: 15 minutes Patient Chief Complaint: "I feel tired" Problems Identified/Issues Discussed: The patient is seen with a [place] Islander speaking medical staff She is still delusional about that one medication, which allegedly caused her GI problems months ago. Denies suicidal, homicidal ideation. No AVH or persecutory delusions elicited today She is somatically preoccupied Somewhat depressed Support given Medication Change: Yes (Increase Seroquel) Medical Record Reviewed: Yes Mental Status Examination - Cognitive Function Orientation: Person, Place, Time Memory: Impaired Attention: Poor Concentration: Poor Association: Loose Fund of Knowledge: Poor - Mood Mood: Anxious - Affect Affect: Constricted - Speech Speech: Pressured - Formal Thought Process Formal Thought Process: Paranoia (likely), Loosening of associations - Suicidal Ideation Suicidal Ideation: No - Homicidal Ideation Homicidal Ideation: No Goal/Treatment Plan - Goal/Treatment Plan Need for Continued Stay: Other Progress Toward Problem(s) and Goals/Treatment Plan: Seroquel to be increased Klonopin for agitation Zoloft continued b/c she is sad about her condition, but low dose Support and psychoed Family contact
--- NOTE | 2017-12-31 21:22 | CP.PCM.PN ---
Subjective - Date & Time of Evaluation Date of Evaluation: 12/31/17 Time of Evaluation: 08:00 - Subjective Subjective: cultures noted iv rx adjusted cont iv rx for sepsis/ bacteremia Objective - Vital Signs/Intake and Output Vital Signs (last 24 hours): Temp Pulse Resp BP Pulse Ox 98.4 F 85 20 137/75 99 12/31/17 15:00 12/31/17 15:00 12/31/17 15:00 12/31/17 15:00 12/31/17 15:00 Intake and Output: 12/31/17 01/01/18 18:59 06:59 Intake Total 1200 Balance 1200 - Medications Medications: Current Medications Acetaminophen (Tylenol 325mg Tab) 650 mg PO Q6 PRN PRN Reason: Fever >100.4 F Last Admin: 12/31/17 02:45 Dose: 650 mg Acetaminophen (Tylenol 325mg Tab) 650 mg PO Q6 [facility] Stop: 01/01/18 00:01 Last Admin: 12/31/17 17:18 Dose: 650 mg Clonazepam (Klonopin) 0.5 mg PO BID PRN PRN Reason: Agitation Heparin Sodium (Porcine) (Heparin) 5,000 units SC Q12 [facility] Last Admin: 12/31/17 09:47 Dose: 5,000 units Sodium Chloride (Sodium Chloride 0.9%) 1,000 mls @ 150 mls/hr IV .Q6H40M [facility] Last Admin: 12/31/17 18:28 Dose: 150 mls/hr Metronidazole (Flagyl) 500 mg in 100 mls @ 100 mls/hr IVPB Q8H [facility] PRN Reason: Protocol Last Admin: 12/31/17 16:55 Dose: 100 mls/hr Ceftriaxone Sodium 2 gm/ (Sodium Chloride) 100 mls @ 100 mls/hr IVPB DAILY [facility] PRN Reason: Protocol Lisinopril (Zestril) 5 mg PO DAILY [facility] Last Admin: 12/31/17 09:43 Dose: 5 mg Lorazepam (Ativan) 2 mg PO HS [facility] Last Admin: 12/30/17 21:24 Dose: 2 mg Morphine Sulfate (Morphine) 1 mg IVP Q6H PRN PRN Reason: Pain, Mild (1-3) Ondansetron HCl (Zofran Inj) 4 mg IVP Q6 PRN PRN Reason: Nausea/Vomiting Pantoprazole Sodium (Protonix Ec Tab) 40 mg PO DAILY [facility] Last Admin: 12/31/17 09:43 Dose: 40 mg Quetiapine Fumarate (Seroquel) 50 mg PO [facility] Sertraline HCl (Zoloft) 50 mg PO DAILY [facility] Last Admin: 12/31/17 09:42 Dose: 50 mg - Labs Labs: 12/31/17 08:08 12/31/17 08:08 PT 16.6 SECONDS (9.7-12.2) H 12/30/17 06:56 INR 1.5 12/30/17 06:56 APTT 34 SECONDS (21-34) 12/30/17 06:56
[2018-01-01] MEDS: Sodium Chloride 0.9% 1,000 ML IV SCH ×3 (02:35→10:14)
[2018-01-01 07:16] LABS: BASO # 0.1 K/uL (0.0-0.2); BASO % 0.3 % (0.0-2.0); EOS # 0.3 K/uL (0.0-0.7); EOS % 1.6 % (0.0-4.0); HEMOGLOBIN 11.3 g/dL (11.0-16.0); LYMPH # 2.5 K/uL (1.0-4.3); LYMPH % 13.5 % (20.0-40.0); MEAN CELL VOLUME 84.3 fL (81.0-99.0); MEAN CORPUSCULAR HGB CONC 34.3 g/dL (33.0-37.0); MEAN PLATELET VOLUME 8.2 fL (7.2-11.7); MONO # 1.4 K/uL (0.0-0.8); MONO % 7.8 % (0.0-10.0); NEUT # 14.2 K/uL (1.8-7.0); NEUT % 76.8 % (50.0-75.0); RBC 3.9 Mil/uL (3.80-5.20); RED CELL DISTRIBUTION WIDTH 15.1 % (11.5-14.5); WHITE BLOOD COUNT 18.5 K/uL (4.8-10.8)
[2018-01-01 07:53] LABS: ALB/GLOB RATIO 0.7 (1.0-2.1); ALBUMIN 2.9 g/dL (3.5-5.0); ALT/SGPT 40 U/L (9-52); AST/SGOT 38 U/L (14-36); BLOOD UREA NITROGEN 11 mg/dL (7-17); CALCIUM 8.7 mg/dl (8.6-10.4); GFR AFRICAN-AMERICAN > 60; GFR NON-AFRICAN AMERICAN > 60
[2018-01-01] MEDS: metroNIDAZOLE IV 500 mg/100 ml 500 MG/100 ML BAG IVPB SCH ×2 (08:22→16:30)
[2018-01-01] MEDS: cefTRIAXone 2 GM in Sodium Chloride 0.9% 100 ML IVPB SCH (10:07)
[2018-01-01] MEDS: Pantoprazole 40 mg EC Tab PO SCH (10:08)
--- NOTE | 2018-01-01 12:03 | CP.PCM.PN ---
Subjective - Date & Time of Evaluation Date of Evaluation: 01/01/18 Time of Evaluation: 12:05 - Subjective Subjective: Patient was seen and examined by me. The patient appears much more awake and alert today. Not a fast affect, however much better than yesterday. She seemed to be eating very well when I saw her Her abx now changed to Rocephin and Flagyl. Off of the IV Primaxin. She is here being treated for UTI/Pyelonephritis. She had + E coli in blood and urine. The repeats are negative so far. WBC decreased to 18 today Objective - Vital Signs/Intake and Output Vital Signs (last 24 hours): Temp Pulse Resp BP Pulse Ox 99.2 F 102 H 20 168/82 H 97 01/01/18 07:43 01/01/18 07:43 01/01/18 07:43 01/01/18 07:43 01/01/18 07:43 Intake and Output: 01/01/18 01/01/18 06:59 18:59 Intake Total 2900 500 Output Total 1700 Balance 1200 500 - Medications Medications: Current Medications Acetaminophen (Tylenol 325mg Tab) 650 mg PO Q6 PRN PRN Reason: Fever >100.4 F Last Admin: 12/31/17 02:45 Dose: 650 mg Clonazepam (Klonopin) 0.5 mg PO BID PRN PRN Reason: Agitation Heparin Sodium (Porcine) (Heparin) 5,000 units SC Q12 [facility] Last Admin: 01/01/18 10:08 Dose: 5,000 units Sodium Chloride (Sodium Chloride 0.9%) 1,000 mls @ 150 mls/hr IV .Q6H40M [facility] Last Admin: 01/01/18 10:14 Dose: 150 mls/hr Metronidazole (Flagyl) 500 mg in 100 mls @ 100 mls/hr IVPB Q8H [facility] PRN Reason: Protocol Last Admin: 01/01/18 08:22 Dose: 100 mls/hr Ceftriaxone Sodium 2 gm/ (Sodium Chloride) 100 mls @ 100 mls/hr IVPB DAILY [facility] PRN Reason: Protocol Last Admin: 01/01/18 10:07 Dose: 100 mls/hr Lisinopril (Zestril) 5 mg PO DAILY [facility] Last Admin: 01/01/18 10:08 Dose: 5 mg Lorazepam (Ativan) 2 mg PO HS [facility] Last Admin: 12/31/17 21:27 Dose: 2 mg Morphine Sulfate (Morphine) 1 mg IVP Q6H PRN PRN Reason: Pain, Mild (1-3) Last Admin: 01/01/18 08:50 Dose: 1 mg Ondansetron HCl (Zofran Inj) 4 mg IVP Q6 PRN PRN Reason: Nausea/Vomiting Pantoprazole Sodium (Protonix Ec Tab) 40 mg PO DAILY [facility] Last Admin: 01/01/18 10:08 Dose: 40 mg Quetiapine Fumarate (Seroquel) 50 mg PO HS [facility] Last Admin: 12/31/17 21:28 Dose: 50 mg Sertraline HCl (Zoloft) 50 mg PO DAILY [facility] Last Admin: 01/01/18 10:07 Dose: 50 mg - Labs Labs: 01/01/18 07:06 01/01/18 07:06 PT 16.6 SECONDS (9.7-12.2) H 12/30/17 06:56 INR 1.5 12/30/17 06:56 APTT 34 SECONDS (21-34) 12/30/17 06:56 - Constitutional Appears: No Acute Distress - Head Exam Head Exam: NORMAL INSPECTION - Eye Exam Eye Exam: EOMI, Normal appearance - ENT Exam ENT Exam: Mucous Membranes Moist - Neurological Exam Neurological Exam: Alert, Awake Neuro motor strength exam: Left Upper Extremity: 5, Right Upper Extremity: 5 - Psychiatric Exam Psychiatric exam: Depressed, Flat Affect - Skin Skin Exam: Normal Color, Warm Assessment and Plan - Assessment and Plan (Free Text) Assessment: 1.) Pyelonephritis, E coli in blood and urine culture - Medications: 01/01: Patient's abx changed by ID to Rocpehin and Flagyl. WBC is decreasing to 18 today. She seemed more awake and alert. The repeat blood cultures negative 24 hrs * Tylenol 650mg q6 prn for fever * Morphine 1mg q6 prn for pain * Zofran 4mg q6prn for nausea - ID Consult: Dr. Mcclure --> help appreciated - Urine culture preliminary: gram negative krupa 12/29 E. coli, repeat straight catheterization 12/29 no growth, f/u repeat UC 12/31/17 2.) Headache - CT of head on admission was negative 3.) Pulmonary nodule - CT of chest/abd/pelvis with IV contrast done on admission was positive for single pulmonary nodule <6mm. - If low risk, no F/U recommended. If high risk, recommend 12 months F/U CT 5.) History of Gastritis - Continue protonix 40 PO QD 6.) History of Schizophrenia - Psych Consult: Dr. Perez --> help appreciated - Klonopin 0.5mg po bid PRN for agitation - Seroquel 100mg po hs - decreased to 50mg PO QHS due to lethargy 7.) Insomnia - Lorazepam 2mg po hs 8.) History of HTN 01/01: Will start lasix 20 IV BID, the chest XRAY looks congested - Lisinopril 5mg po hs 9.) History of Depression - Zoloft 50mg po daily 10.) Prophylaxis - Heparin 5,000units sc q12h - SCDs - Protonix 40mg po daily
[2018-01-02] MEDS: metroNIDAZOLE IV 500 mg/100 ml 500 MG/100 ML BAG IVPB SCH ×3 (00:02→16:30)
[2018-01-02 08:21] LABS: BASO # 0.1 K/uL (0.0-0.2); BASO % 0.4 % (0.0-2.0); EOS # 0.7 K/uL (0.0-0.7); EOS % 5.1 % (0.0-4.0); HEMOGLOBIN 11.2 g/dL (11.0-16.0); LYMPH # 3.4 K/uL (1.0-4.3); LYMPH % 24.1 % (20.0-40.0); MEAN CELL VOLUME 83.6 fL (81.0-99.0); MEAN CORPUSCULAR HEMOGLOBIN 28.4 pg (27.0-31.0); MEAN PLATELET VOLUME 8.7 fL (7.2-11.7); MONO % 14.2 % (0.0-10.0); NEUT # 7.9 K/uL (1.8-7.0); NEUT % 56.2 % (50.0-75.0); RBC 3.94 Mil/uL (3.80-5.20); RED CELL DISTRIBUTION WIDTH 15.1 % (11.5-14.5); WHITE BLOOD COUNT 14.1 K/uL (4.8-10.8)
[2018-01-02 09:05] LABS: ALB/GLOB RATIO 0.7 (1.0-2.1); ALBUMIN 3.1 g/dL (3.5-5.0); ALT/SGPT 22 U/L (9-52); AST/SGOT 33 U/L (14-36); BLOOD UREA NITROGEN 15 mg/dL (7-17); GFR AFRICAN-AMERICAN > 60; GFR NON-AFRICAN AMERICAN > 60
[2018-01-02] MEDS: cefTRIAXone 2 GM in Sodium Chloride 0.9% 100 ML IVPB SCH (09:39)
[2018-01-02] MEDS: Pantoprazole 40 mg EC Tab PO SCH (09:40)
--- NOTE | 2018-01-02 12:26 | CP.PCM.PN ---
<Akin Post - Last Filed: 01/02/18 13:33> Subjective - Date & Time of Evaluation Date of Evaluation: 01/02/18 Time of Evaluation: 12:11 - Subjective Subjective: PGY2 note for Dr. Song's service: Pt seen and examined at bedside. Nursing reports patient with elevated temperature but no fever overnight. Patient found resting comfortably, sleeping in bed. Patient with no subjective fever/chills, chest pain, SOB, or palpitations. Reports tolerating diet and voiding without difficulty. Objective - Vital Signs/Intake and Output Vital Signs (last 24 hours): Temp Pulse Resp BP Pulse Ox 98.9 F 82 20 133/75 98 01/02/18 08:03 01/02/18 08:03 01/02/18 08:03 01/02/18 09:40 01/02/18 08:03 Intake and Output: 01/02/18 01/02/18 06:59 18:59 Intake Total 400 500 Output Total 1510 Balance -1110 500 - Medications Medications: Current Medications Acetaminophen (Tylenol 325mg Tab) 650 mg PO Q6 PRN PRN Reason: Fever >100.4 F Last Admin: 12/31/17 02:45 Dose: 650 mg Clonazepam (Klonopin) 0.5 mg PO BID PRN PRN Reason: Agitation Furosemide (Lasix) 20 mg IVP BID [facility] Last Admin: 01/02/18 09:40 Dose: 20 mg Heparin Sodium (Porcine) (Heparin) 5,000 units SC Q8 [facility] Last Admin: 01/02/18 06:16 Dose: 5,000 units Metronidazole (Flagyl) 500 mg in 100 mls @ 100 mls/hr IVPB Q8H [facility] PRN Reason: Protocol Last Admin: 01/02/18 08:10 Dose: 100 mls/hr Ceftriaxone Sodium 2 gm/ (Sodium Chloride) 100 mls @ 100 mls/hr IVPB DAILY [facility] PRN Reason: Protocol Last Admin: 01/02/18 09:39 Dose: 100 mls/hr Lisinopril (Zestril) 5 mg PO DAILY [facility] Last Admin: 01/02/18 09:40 Dose: 5 mg Lorazepam (Ativan) 2 mg PO HS [facility] Last Admin: 01/01/18 22:30 Dose: 2 mg Morphine Sulfate (Morphine) 1 mg IVP Q6H PRN PRN Reason: Pain, Mild (1-3) Last Admin: 01/01/18 08:50 Dose: 1 mg Ondansetron HCl (Zofran Inj) 4 mg IVP Q6 PRN PRN Reason: Nausea/Vomiting Pantoprazole Sodium (Protonix Ec Tab) 40 mg PO DAILY [facility] Last Admin: 01/02/18 09:40 Dose: 40 mg Quetiapine Fumarate (Seroquel) 50 mg PO HS [facility] Last Admin: 01/01/18 22:30 Dose: 50 mg Sertraline HCl (Zoloft) 50 mg PO DAILY [facility] Last Admin: 01/02/18 09:40 Dose: 50 mg - Labs Labs: 01/02/18 08:05 01/02/18 08:05 PT 16.6 SECONDS (9.7-12.2) H 12/30/17 06:56 INR 1.5 12/30/17 06:56 APTT 34 SECONDS (21-34) 12/30/17 06:56 - Additional Findings Additional findings: - Constitutional Appears: No Acute Distress - Head Exam Head Exam: ATRAUMATIC, NORMAL INSPECTION - Eye Exam Eye Exam: EOMI, Normal appearance - ENT Exam ENT Exam: Mucous Membranes Moist - Respiratory Exam Respiratory Exam: Clear to Ausculation Bilateral, NORMAL BREATHING PATTERN - Cardiovascular Exam Cardiovascular Exam: REGULAR RHYTHM, +S1, +S2 - GI/Abdominal Exam GI & Abdominal Exam: Soft, Tenderness, Normal Bowel Sounds Additional comments: obese abdomen - Extremities Exam Extremities Exam: Normal Inspection - Neurological Exam Neurological Exam: Alert, Awake, Oriented x3 - Skin Skin Exam: Normal Color Assessment and Plan - Assessment and Plan (Free Text) Plan: Pyelonephritis, E coli in blood and urine culture - Medications: 01/01: Patient's abx changed by ID to Rocpe[place] and Flagyl. WBC is decreasing to 18 today. She seemed more awake and alert. The repeat blood cultures negative 48 hrs * Tylenol 650mg q6 prn for fever * Morphine 1mg q6 prn for pain * Zofran 4mg q6prn for nausea - ID Consult: Dr. Mcclure --> help appreciated - Urine culture (12/29/17): E. coli, repeat straight catheterization 12/29 no growth repeat (UC 12/31/17): no growth Headache - CT of head on admission was negative Pulmonary nodule - CT of chest/abd/pelvis with IV contrast done on admission was positive for single pulmonary nodule <6mm. - If low risk, no F/U recommended. If high risk, recommend 12 months F/U CT History of Gastritis - Continue protonix 40 PO QD History of Schizophrenia - Psych Consult: Dr. Perez --> help appreciated - Klonopin 0.5mg po bid PRN for agitation - Seroquel 100mg po hs - decreased to 50mg PO QHS due to lethargy Insomnia - Lorazepam 2mg po hs History of HTN Will start lasix 20 IV BID CXR (01/01/18): mild venous congestion. Upper lobe granulomatous changes. B/l hilar prominence. Cardiomegaly (See full report) - f/u CXR for 01/03/18 - Lisinopril 5mg po hs History of Depression - Zoloft 50mg po daily Prophylaxis - Heparin 5,000units sc q12h - SCDs - Protonix 40mg po daily [facility] PGY-2 Dr. Song <Geronimo Song - Last Filed: 01/02/18 16:34> Objective - Vital Signs/Intake and Output Vital Signs (last 24 hours): Temp Pulse Resp BP Pulse Ox 98.9 F 82 20 133/75 98 01/02/18 08:03 01/02/18 08:03 01/02/18 08:03 01/02/18 09:40 01/02/18 08:03 Intake and Output: 01/02/18 01/02/18 06:59 18:59 Intake Total 400 500 Output Total 1510 Balance -1110 500 - Medications Medications: Current Medications Acetaminophen (Tylenol 325mg Tab) 650 mg PO Q6 PRN PRN Reason: Fever >100.4 F Last Admin: 12/31/17 02:45 Dose: 650 mg Clonazepam (Klonopin) 0.5 mg PO BID PRN PRN Reason: Agitation Furosemide (Lasix) 20 mg IVP BID [facility] Last Admin: 01/02/18 09:40 Dose: 20 mg Heparin Sodium (Porcine) (Heparin) 5,000 units SC Q8 [facility] Last Admin: 01/02/18 14:34 Dose: 5,000 units Metronidazole (Flagyl) 500 mg in 100 mls @ 100 mls/hr IVPB Q8H [facility] PRN Reason: Protocol Last Admin: 01/02/18 08:10 Dose: 100 mls/hr Ceftriaxone Sodium 2 gm/ (Sodium Chloride) 100 mls @ 100 mls/hr IVPB DAILY [facility] PRN Reason: Protocol Last Admin: 01/02/18 09:39 Dose: 100 mls/hr Lisinopril (Zestril) 5 mg PO DAILY [facility] Last Admin: 01/02/18 09:40 Dose: 5 mg Lorazepam (Ativan) 2 mg PO HS [facility] Last Admin: 01/01/18 22:30 Dose: 2 mg Morphine Sulfate (Morphine) 1 mg IVP Q6H PRN PRN Reason: Pain, Mild (1-3) Last Admin: 01/01/18 08:50 Dose: 1 mg Ondansetron HCl (Zofran Inj) 4 mg IVP Q6 PRN PRN Reason: Nausea/Vomiting Pantoprazole Sodium (Protonix Ec Tab) 40 mg PO DAILY [facility] Last Admin: 01/02/18 09:40 Dose: 40 mg Quetiapine Fumarate (Seroquel) 50 mg PO HS [facility] Last Admin: 01/01/18 22:30 Dose: 50 mg Sertraline HCl (Zoloft) 50 mg PO DAILY [facility] Last Admin: 01/02/18 09:40 Dose: 50 mg - Labs Labs: 01/02/18 08:05 01/02/18 08:05 PT 16.6 SECONDS (9.7-12.2) H 12/30/17 06:56 INR 1.5 12/30/17 06:56 APTT 34 SECONDS (21-34) 12/30/17 06:56 Attending/Attestation - Attestation I have personally seen and examined this patient.: Yes I have fully participated in the care of the patient.: Yes I have reviewed all pertinent clinical information, including history, physical exam and plan: Yes Notes (Text): 01/02/18 16:32 Medical attending: Patient was seen and examined by me. Agree with the above note by the resident The patient was not in any acute distress The repeat blood cultures are negative for the E coli The WBC is decreasing - however it's still high. Currently afebrile, and blood pressure stable She has not had any agitation while here. thank you Geronimo Song
--- NOTE | 2018-01-02 14:23 | CP.PCM.PN ---
Subjective - Date & Time of Evaluation Date of Evaluation: 01/02/18 Time of Evaluation: 10:00 - Subjective Subjective: low grade temps awake alert NAD c/o fullness right flank Objective - Vital Signs/Intake and Output Vital Signs (last 24 hours): Temp Pulse Resp BP Pulse Ox 98.9 F 82 20 133/75 98 01/02/18 08:03 01/02/18 08:03 01/02/18 08:03 01/02/18 09:40 01/02/18 08:03 Intake and Output: 01/02/18 01/02/18 06:59 18:59 Intake Total 400 500 Output Total 1510 Balance -1110 500 - Medications Medications: Current Medications Acetaminophen (Tylenol 325mg Tab) 650 mg PO Q6 PRN PRN Reason: Fever >100.4 F Last Admin: 12/31/17 02:45 Dose: 650 mg Clonazepam (Klonopin) 0.5 mg PO BID PRN PRN Reason: Agitation Furosemide (Lasix) 20 mg IVP BID [facility] Last Admin: 01/02/18 09:40 Dose: 20 mg Heparin Sodium (Porcine) (Heparin) 5,000 units SC Q8 [facility] Last Admin: 01/02/18 06:16 Dose: 5,000 units Metronidazole (Flagyl) 500 mg in 100 mls @ 100 mls/hr IVPB Q8H [facility] PRN Reason: Protocol Last Admin: 01/02/18 08:10 Dose: 100 mls/hr Ceftriaxone Sodium 2 gm/ (Sodium Chloride) 100 mls @ 100 mls/hr IVPB DAILY [facility] PRN Reason: Protocol Last Admin: 01/02/18 09:39 Dose: 100 mls/hr Lisinopril (Zestril) 5 mg PO DAILY [facility] Last Admin: 01/02/18 09:40 Dose: 5 mg Lorazepam (Ativan) 2 mg PO HS [facility] Last Admin: 01/01/18 22:30 Dose: 2 mg Morphine Sulfate (Morphine) 1 mg IVP Q6H PRN PRN Reason: Pain, Mild (1-3) Last Admin: 01/01/18 08:50 Dose: 1 mg Ondansetron HCl (Zofran Inj) 4 mg IVP Q6 PRN PRN Reason: Nausea/Vomiting Pantoprazole Sodium (Protonix Ec Tab) 40 mg PO DAILY [facility] Last Admin: 01/02/18 09:40 Dose: 40 mg Quetiapine Fumarate (Seroquel) 50 mg PO HS [facility] Last Admin: 01/01/18 22:30 Dose: 50 mg Sertraline HCl (Zoloft) 50 mg PO DAILY [facility] Last Admin: 01/02/18 09:40 Dose: 50 mg - Labs Labs: 01/02/18 08:05 01/02/18 08:05 PT 16.6 SECONDS (9.7-12.2) H 12/30/17 06:56 INR 1.5 12/30/17 06:56 APTT 34 SECONDS (21-34) 12/30/17 06:56 - Constitutional Appears: Non-toxic, Chronically Ill - Head Exam Head Exam: NORMOCEPHALIC - Eye Exam Eye Exam: PERRL - ENT Exam ENT Exam: Mucous Membranes Dry - Neck Exam Neck Exam: absent: Lymphadenopathy - Respiratory Exam Respiratory Exam: Decreased Breath Sounds - Cardiovascular Exam Cardiovascular Exam: REGULAR RHYTHM - GI/Abdominal Exam GI & Abdominal Exam: Distended, Soft - Rectal Exam Rectal Exam: Deferred - Exam Exam: NORMAL INSPECTION - Extremities Exam Extremities Exam: Pedal Edema - Back Exam Back Exam: CVA tenderness (R). absent: CVA tenderness (L) - Neurological Exam Neurological Exam: Alert, Awake, Oriented x3 Neuro motor strength exam: Left Upper Extremity: 3, Right Upper Extremity: 3, Left Lower Extremity: 3, Right Lower Extremity: 3 - Psychiatric Exam Psychiatric exam: Normal Mood - Skin Skin Exam: Dry Assessment and Plan (1) Pyelonephritis Status: Acute (2) Abdominal pain Status: Acute (3) Gastritis Status: Acute - Assessment and Plan (Free Text) Assessment: recc eval cont IV antibiotics may need long course rx
[2018-01-03] MEDS: metroNIDAZOLE IV 500 mg/100 ml 500 MG/100 ML BAG IVPB SCH ×4 (00:03→23:51)
[2018-01-03 07:18] LABS: BASO # 0.1 K/uL (0.0-0.2); BASO % 0.4 % (0.0-2.0); EOS # 0.9 K/uL (0.0-0.7); EOS % 6.9 % (0.0-4.0); HEMOGLOBIN 11.8 g/dL (11.0-16.0); LYMPH # 2.9 K/uL (1.0-4.3); LYMPH % 22.4 % (20.0-40.0); MEAN CELL VOLUME 82.9 fL (81.0-99.0); MEAN CORPUSCULAR HEMOGLOBIN 28.8 pg (27.0-31.0); MEAN CORPUSCULAR HGB CONC 34.7 g/dL (33.0-37.0); MEAN PLATELET VOLUME 8.3 fL (7.2-11.7); MONO # 1.9 K/uL (0.0-0.8); MONO % 14.9 % (0.0-10.0); NEUT # 7.1 K/uL (1.8-7.0); NEUT % 55.4 % (50.0-75.0); RBC 4.09 Mil/uL (3.80-5.20); RED CELL DISTRIBUTION WIDTH 15.2 % (11.5-14.5); WHITE BLOOD COUNT 12.9 K/uL (4.8-10.8)
[2018-01-03 07:39] LABS: ALB/GLOB RATIO 0.7 (1.0-2.1); ALBUMIN 3.1 g/dL (3.5-5.0); ALT/SGPT 33 U/L (9-52); AST/SGOT 30 U/L (14-36); BLOOD UREA NITROGEN 18 mg/dL (7-17); CALCIUM 8.5 mg/dl (8.6-10.4); GFR AFRICAN-AMERICAN > 60; GFR NON-AFRICAN AMERICAN > 60
--- NOTE | 2018-01-03 08:29 | RAD ---
HISTORY: chf COMPARISON: 12/31/2017 FINDINGS: LUNGS: No active pulmonary disease. PLEURA: No significant pleural effusion identified, no pneumothorax apparent. CARDIOVASCULAR: Normal. OSSEOUS STRUCTURES: No significant abnormalities. VISUALIZED UPPER ABDOMEN: Normal. OTHER FINDINGS: None. IMPRESSION: No active disease.
--- NOTE | 2018-01-03 09:34 | CP.PCM.DIS ---
Provider - Provider Date of Admission: 12/29/17 18:50 Attending physician: Chris Narayan MD Hospital Course - Lab Results Lab Results: Micro Results 12/31/17 08:40 Blood-Venous Blood Culture - Preliminary NO GROWTH AFTER 3 DAYS 12/31/17 08:00 Blood-Venous Blood Culture - Preliminary NO GROWTH AFTER 3 DAYS 12/29/17 18:40 Blood Blood Culture - Preliminary NO GROWTH AFTER 4 DAYS 12/31/17 20:00 Urine,Clean Catch Urine Culture - Final No Growth (<1,000 CFU/ML) 12/29/17 13:52 Blood Blood Culture - Final Escherichia Coli 12/29/17 13:52 Blood Gram Stain - Final 12/29/17 21:37 Urine,Catheterized Urine Culture - Final No Growth (<1,000 CFU/ML) 12/29/17 18:53 Urine,Clean Catch Urine Culture - Final Escherichia Coli Most Recent Lab Values WBC 12.9 K/uL (4.8-10.8) H 01/03/18 06:57 RBC 4.09 Mil/uL (3.80-5.20) 01/03/18 06:57 Hgb 11.8 g/dL (11.0-16.0) 01/03/18 06:57 Hct 33.9 % (34.0-47.0) L 01/03/18 06:57 MCV 82.9 fL (81.0-99.0) 01/03/18 06:57 MCH 28.8 pg (27.0-31.0) 01/03/18 06:57 MCHC 34.7 g/dL (33.0-37.0) 01/03/18 06:57 RDW 15.2 % (11.5-14.5) H 01/03/18 06:57 Plt Count 374 K/uL (130-400) 01/03/18 06:57 MPV 8.3 fL (7.2-11.7) 01/03/18 06:57 Neut % (Auto) 55.4 % (50.0-75.0) 01/03/18 06:57 Lymph % (Auto) 22.4 % (20.0-40.0) 01/03/18 06:57 Mcduffie % (Auto) 14.9 % (0.0-10.0) H 01/03/18 06:57 Eos % (Auto) 6.9 % (0.0-4.0) H 01/03/18 06:57 Baso % (Auto) 0.4 % (0.0-2.0) 01/03/18 06:57 Neut # (Auto) 7.1 K/uL (1.8-7.0) H 01/03/18 06:57 Lymph # (Auto) 2.9 K/uL (1.0-4.3) 01/03/18 06:57 Mcduffie # (Auto) 1.9 K/uL (0.0-0.8) H 01/03/18 06:57 Eos # (Auto) 0.9 K/uL (0.0-0.7) H 01/03/18 06:57 Baso # (Auto) 0.1 K/uL (0.0-0.2) 01/03/18 06:57 Neutrophils % (Manual) 76 % (50-75) H 12/30/17 06:56 Band Neutrophils % 16 % (0-2) H* 12/30/17 06:56 Lymphocytes % (Manual) 5 % (20-40) L 12/30/17 06:56 Monocytes % (Manual) 2 % (0-10) 12/30/17 06:56 Metamyelocytes % 1 % (0-0) H 12/30/17 06:56 Differential Comment 12/29/17 14:06 Platelet Estimate Slightly increased (NORMAL) H 12/30/17 06:56 RBC Morphology Normal 12/30/17 06:56 PT 16.6 SECONDS (9.7-12.2) H 12/30/17 06:56 INR 1.5 12/30/17 06:56 APTT 34 SECONDS (21-34) 12/30/17 06:56 pO2 31 mm/Hg (30-55) 12/29/17 19:06 VBG pH 7.32 (7.32-7.43) 12/29/17 19:06 VBG pCO2 31 mmHg (40-60) L 12/29/17 19:06 VBG HCO3 16.8 mmol/L 12/29/17 19:06 VBG Total CO2 17.0 mmol/L (22-28) L 12/29/17 19:06 VBG O2 Sat (Calc) 68.1 % (40-65) H 12/29/17 19:06 VBG Base Excess -8.9 mmol/L (0.0-2.0) L 12/29/17 19:06 VBG Potassium 2.7 mmol/L (3.6-5.2) L 12/29/17 19:06 Sodium 138.0 mmol/l (132-148) 12/29/17 19:06 Chloride 109.0 mmol/L (98-107) H 12/29/17 19:06 Glucose 78 mg/dl (65-105) 12/29/17 19:06 Lactate 1.1 mmol/L (0.7-2.1) 12/29/17 19:06 Sodium 138 mmol/L (132-148) 01/03/18 06:57 Potassium 4.0 mmol/L (3.6-5.2) 01/03/18 06:57 Chloride 101 mmol/L (98-107) 01/03/18 06:57 Carbon Dioxide 29 mmol/L (22-30) 01/03/18 06:57 Anion Gap 11 (10-20) 01/03/18 06:57 BUN 18 mg/dL (7-17) H 01/03/18 06:57 Creatinine 0.9 mg/dL (0.7-1.2) 01/03/18 06:57 Est GFR ( Amer) > 60 01/03/18 06:57 Est GFR (Non-Af Amer) > 60 01/03/18 06:57 POC Glucose (mg/dL) 103 mg/dL (65-110) 01/02/18 11:22 Random Glucose 101 mg/dL (65-105) 01/03/18 06:57 Calcium 8.5 mg/dl (8.6-10.4) L 01/03/18 06:57 Phosphorus 4.1 mg/dL (2.5-4.5) 01/03/18 06:57 Magnesium 2.1 mg/dL (1.6-2.3) 01/03/18 06:57 Total Bilirubin 0.4 mg/dL (0.2-1.3) 01/03/18 06:57 AST 30 U/L (14-36) 01/03/18 06:57 ALT 33 U/L (9-52) 01/03/18 06:57 Alkaline Phosphatase 326 U/L (38-126) H 01/03/18 06:57 Total Protein 7.3 g/dL (6.3-8.3) 01/03/18 06:57 Albumin 3.1 g/dL (3.5-5.0) L 01/03/18 06:57 Globulin 4.2 gm/dL (2.2-3.9) H 01/03/18 06:57 Albumin/Globulin Ratio 0.7 (1.0-2.1) L 01/03/18 06:57 Venous Blood Potassium 2.7 mmol/L (3.6-5.2) L 12/29/17 19:06 Urine Color Yellow (YELLOW) 12/29/17 21:37 Urine Clarity Hazy (Clear) 12/29/17 21:37 Urine pH 6.0 (5.0-8.0) 12/29/17 21:37 Ur Specific Phil Campbell 1.043 (1.003-1.030) H 12/29/17 21:37 Urine Protein 1+ mg/dL (NEGATIVE) H 12/29/17 21:37 Urine Glucose (UA) Normal mg/dL (Normal) 12/29/17 21:37 Urine Ketones Negative mg/dL (NEGATIVE) 12/29/17 21:37 Urine Blood 1+ (NEGATIVE) H 12/29/17 21:37 Urine Nitrate Negative (NEGATIVE) 12/29/17 21:37 Urine Bilirubin Negative (NEGATIVE) 12/29/17 21:37 Urine Urobilinogen Normal mg/dL (0.2-1.0) 12/29/17 21:37 Ur Leukocyte Esterase 3+ Raudel/uL (Negative) H 12/29/17 21:37 Urine WBC (Auto) 49 /hpf (0-5) H 12/29/17 21:37 Urine RBC (Auto) 25 /hpf (0-3) H 12/29/17 21:37 Ur Squamous Epith Cells 9 /hpf (0-5) H 12/29/17 21:37 Urine Bacteria Few (<OCC) H 12/29/17 21:37 Influenza Typ A,B (EIA) Negative for flu a/b (NEGATIVE) 12/29/17 14:06 Discharge Exam - Head Exam Head Exam: NORMOCEPHALIC Discharge Plan - Follow Up Plan Condition: FAIR Disposition: HOME/ ROUTINE
[2018-01-03] MEDS: Pantoprazole 40 mg EC Tab PO SCH (10:30)
[2018-01-03] MEDS: cefTRIAXone 2 GM in Sodium Chloride 0.9% 100 ML IVPB SCH (10:30)
--- NOTE | 2018-01-03 13:14 | CP.PCM.PN ---
Subjective - Date & Time of Evaluation Date of Evaluation: 01/03/18 Time of Evaluation: 08:00 - Subjective Subjective: discussed on rounds abd pain less belly soft cont rx for 14 days Objective - Vital Signs/Intake and Output Vital Signs (last 24 hours): Temp Pulse Resp BP Pulse Ox 98.3 F 81 20 124/80 96 01/03/18 09:08 01/03/18 09:08 01/03/18 09:08 01/03/18 09:08 01/03/18 09:08 Intake and Output: 01/03/18 01/03/18 06:59 18:59 Intake Total 700 Output Total 2800 Balance -2100 - Medications Medications: Current Medications Acetaminophen (Tylenol 325mg Tab) 650 mg PO Q6 PRN PRN Reason: Fever >100.4 F Last Admin: 12/31/17 02:45 Dose: 650 mg Clonazepam (Klonopin) 0.5 mg PO BID PRN PRN Reason: Agitation Furosemide (Lasix) 20 mg IVP BID [facility] Last Admin: 01/03/18 10:36 Dose: Not Given Heparin Sodium (Porcine) (Heparin) 5,000 units SC Q8 [facility] Last Admin: 01/03/18 06:05 Dose: 5,000 units Metronidazole (Flagyl) 500 mg in 100 mls @ 100 mls/hr IVPB Q8H [facility] PRN Reason: Protocol Last Admin: 01/03/18 09:00 Dose: 100 mls/hr Ceftriaxone Sodium 2 gm/ (Sodium Chloride) 100 mls @ 100 mls/hr IVPB DAILY [facility] PRN Reason: Protocol Last Admin: 01/03/18 10:30 Dose: 100 mls/hr Lisinopril (Zestril) 5 mg PO DAILY [facility] Last Admin: 01/03/18 10:30 Dose: 5 mg Lorazepam (Ativan) 2 mg PO HS [facility] Last Admin: 01/02/18 22:19 Dose: 2 mg Morphine Sulfate (Morphine) 1 mg IVP Q6H PRN PRN Reason: Pain, Mild (1-3) Last Admin: 01/01/18 08:50 Dose: 1 mg Ondansetron HCl (Zofran Inj) 4 mg IVP Q6 PRN PRN Reason: Nausea/Vomiting Pantoprazole Sodium (Protonix Ec Tab) 40 mg PO DAILY [facility] Last Admin: 01/03/18 10:30 Dose: 40 mg Quetiapine Fumarate (Seroquel) 100 mg PO [facility] Sertraline HCl (Zoloft) 50 mg PO DAILY [facility] Last Admin: 01/03/18 10:30 Dose: 50 mg - Labs Labs: 01/03/18 06:57 01/03/18 06:57 PT 16.6 SECONDS (9.7-12.2) H 12/30/17 06:56 INR 1.5 12/30/17 06:56 APTT 34 SECONDS (21-34) 12/30/17 06:56 - Constitutional Appears: Non-toxic, Chronically Ill - Head Exam Head Exam: NORMOCEPHALIC - Eye Exam Eye Exam: PERRL - ENT Exam ENT Exam: Mucous Membranes Dry - Neck Exam Neck Exam: absent: Lymphadenopathy - Respiratory Exam Respiratory Exam: Decreased Breath Sounds - GI/Abdominal Exam GI & Abdominal Exam: Distended Assessment and Plan (1) Pyelonephritis Status: Acute (2) Abdominal pain Status: Acute (3) Gastritis Status: Acute
--- NOTE | 2018-01-03 17:41 | CP.PCM.PN ---
Subjective - Date & Time of Evaluation Date of Evaluation: 01/03/18 Time of Evaluation: 17:38 - Subjective Subjective: 57 year old hisp female admitted for pylo. ct shows no hydro or obs.aribrile wbc dropping on present antibiotics. A pylo responding to present RX Suggest 7 to 10 days of sennsitive antibiotics no gu eval nessary at this time Hosay Objective - Vital Signs/Intake and Output Vital Signs (last 24 hours): Temp Pulse Resp BP Pulse Ox 97.8 F 75 20 106/64 99 01/03/18 15:00 01/03/18 15:00 01/03/18 15:00 01/03/18 15:00 01/03/18 15:00 Intake and Output: 01/03/18 01/03/18 06:59 18:59 Intake Total 700 Output Total 2800 Balance -2100 - Medications Medications: Current Medications Acetaminophen (Tylenol 325mg Tab) 650 mg PO Q6 PRN PRN Reason: Fever >100.4 F Last Admin: 12/31/17 02:45 Dose: 650 mg Clonazepam (Klonopin) 0.5 mg PO BID PRN PRN Reason: Agitation Furosemide (Lasix) 20 mg IVP BID [facility] Last Admin: 01/03/18 10:36 Dose: Not Given Heparin Sodium (Porcine) (Heparin) 5,000 units SC Q8 [facility] Last Admin: 01/03/18 14:50 Dose: 5,000 units Metronidazole (Flagyl) 500 mg in 100 mls @ 100 mls/hr IVPB Q8H [facility] PRN Reason: Protocol Last Admin: 01/03/18 16:38 Dose: 100 mls/hr Ceftriaxone Sodium 2 gm/ (Sodium Chloride) 100 mls @ 100 mls/hr IVPB DAILY [facility] PRN Reason: Protocol Last Admin: 01/03/18 10:30 Dose: 100 mls/hr Lisinopril (Zestril) 5 mg PO DAILY [facility] Last Admin: 01/03/18 10:30 Dose: 5 mg Lorazepam (Ativan) 2 mg PO HS [facility] Last Admin: 01/02/18 22:19 Dose: 2 mg Morphine Sulfate (Morphine) 1 mg IVP Q6H PRN PRN Reason: Pain, Mild (1-3) Last Admin: 01/01/18 08:50 Dose: 1 mg Ondansetron HCl (Zofran Inj) 4 mg IVP Q6 PRN PRN Reason: Nausea/Vomiting Pantoprazole Sodium (Protonix Ec Tab) 40 mg PO DAILY [facility] Last Admin: 01/03/18 10:30 Dose: 40 mg Quetiapine Fumarate (Seroquel) [address] [facility] Sertraline HCl (Zoloft) 50 mg PO DAILY [facility] Last Admin: 01/03/18 10:30 Dose: 50 mg - Labs Labs: 01/03/18 06:57 01/03/18 06:57 PT 16.6 SECONDS (9.7-12.2) H 12/30/17 06:56 INR 1.5 12/30/17 06:56 APTT 34 SECONDS (21-34) 12/30/17 06:56
--- NOTE | 2018-01-03 17:42 | CP.PCM.PN ---
Subjective - Date & Time of Evaluation Date of Evaluation: 01/03/18 Time of Evaluation: 07:00 - Subjective Subjective: Medicine Progress Note: Patient was seen and examined at bedside in the AM. Patient states she is still feeling some abdominal distention and sweats. Patient denies fever, nausea, vomiting, diarrhea or constipation. Objective - Vital Signs/Intake and Output Vital Signs (last 24 hours): Temp Pulse Resp BP Pulse Ox 97.8 F 75 20 106/64 99 01/03/18 15:00 01/03/18 15:00 01/03/18 15:00 01/03/18 15:00 01/03/18 15:00 Intake and Output: 01/03/18 01/03/18 06:59 18:59 Intake Total 700 Output Total 2800 Balance -2100 - Medications Medications: Current Medications Acetaminophen (Tylenol 325mg Tab) 650 mg PO Q6 PRN PRN Reason: Fever >100.4 F Last Admin: 12/31/17 02:45 Dose: 650 mg Clonazepam (Klonopin) 0.5 mg PO BID PRN PRN Reason: Agitation Furosemide (Lasix) 20 mg IVP BID [facility] Last Admin: 01/03/18 10:36 Dose: Not Given Heparin Sodium (Porcine) (Heparin) 5,000 units SC Q8 [facility] Last Admin: 01/03/18 14:50 Dose: 5,000 units Metronidazole (Flagyl) 500 mg in 100 mls @ 100 mls/hr IVPB Q8H [facility] PRN Reason: Protocol Last Admin: 01/03/18 16:38 Dose: 100 mls/hr Ceftriaxone Sodium 2 gm/ (Sodium Chloride) 100 mls @ 100 mls/hr IVPB DAILY [facility] PRN Reason: Protocol Last Admin: 01/03/18 10:30 Dose: 100 mls/hr Lisinopril (Zestril) 5 mg PO DAILY [facility] Last Admin: 01/03/18 10:30 Dose: 5 mg Lorazepam (Ativan) 2 mg PO HS [facility] Last Admin: 01/02/18 22:19 Dose: 2 mg Morphine Sulfate (Morphine) 1 mg IVP Q6H PRN PRN Reason: Pain, Mild (1-3) Last Admin: 01/01/18 08:50 Dose: 1 mg Ondansetron HCl (Zofran Inj) 4 mg IVP Q6 PRN PRN Reason: Nausea/Vomiting Pantoprazole Sodium (Protonix Ec Tab) 40 mg PO DAILY [facility] Last Admin: 01/03/18 10:30 Dose: 40 mg Quetiapine Fumarate (Seroquel) 100 mg PO [facility] Sertraline HCl (Zoloft) 50 mg PO DAILY [facility] Last Admin: 01/03/18 10:30 Dose: 50 mg - Labs Labs: 01/03/18 06:57 01/03/18 06:57 PT 16.6 SECONDS (9.7-12.2) H 12/30/17 06:56 INR 1.5 12/30/17 06:56 APTT 34 SECONDS (21-34) 12/30/17 06:56 - Constitutional Appears: No Acute Distress - Head Exam Head Exam: ATRAUMATIC, NORMAL INSPECTION - Eye Exam Eye Exam: EOMI, Normal appearance - ENT Exam ENT Exam: Mucous Membranes Moist - Respiratory Exam Respiratory Exam: Clear to Ausculation Bilateral, NORMAL BREATHING PATTERN - Cardiovascular Exam Cardiovascular Exam: REGULAR RHYTHM, +S1, +S2 - GI/Abdominal Exam GI & Abdominal Exam: Soft, Normal Bowel Sounds. absent: Tenderness Additional comments: obese abdomen - Extremities Exam Extremities Exam: Normal Inspection. absent: Pedal Edema, Tenderness - Neurological Exam Neurological Exam: Alert, Awake, Oriented x3 - Psychiatric Exam Psychiatric exam: Normal Affect, Normal Mood - Skin Skin Exam: Normal Color Assessment and Plan - Assessment and Plan (Free Text) Assessment: Pyelonephritis, E coli in blood and urine culture - Medications: 01/01: Patient's abx changed by ID to [place] and Flagyl. WBC is decreasing to 18 today. She seemed more awake and alert. The repeat blood cultures negative 48 hrs * Tylenol 650mg q6 prn for fever * Morphine 1mg q6 prn for pain * Zofran 4mg q6prn for nausea - ID Consult: Dr. Mcclure --> help appreciated - Per Dr. Mcclure patient is to be discharged home with Cipro 500mg bid for 14 days - Urine culture (12/29/17): E. coli, repeat straight catheterization 12/29 no growth - repeat ([facility] 12/31/17): no growth - Uro Consult: Dr. Corona --> help appreciated - per note no gu eval necessary at this time Headache - CT of head on admission was negative Pulmonary nodule - CT of chest/abd/pelvis with IV contrast done on admission was positive for single pulmonary nodule <6mm. - If low risk, no F/U recommended. If high risk, recommend 12 months F/U CT History of Gastritis - Continue protonix 40 PO QD History of Schizophrenia - Psych Consult: Dr. Perez --> help appreciated - Klonopin 0.5mg po bid PRN for agitation - Seroquel 100mg po hs Insomnia - Lorazepam 2mg po hs History of HTN Will start lasix 20 IV BID CXR (01/01/18): mild venous congestion. Upper lobe granulomatous changes. B/l hilar prominence. Cardiomegaly (See full report) - CXR for 01/03/18: No active disease - Lisinopril 5mg po hs History of Depression - Zoloft 50mg po daily Prophylaxis - Heparin 5,000units sc q12h - SCDs - Protonix 40mg po daily Disposition: afebrile for 48 hours. Possible discharge home 01/04/18 with home medications, Cipro 500mg bid for 14 days; Seroquel 100mg HS Case discussed with Dr. Helene Luo PGY-1
[2018-01-04 06:48] LABS: BASO # 0.1 K/uL (0.0-0.2); BASO % 0.5 % (0.0-2.0); EOS % 7.3 % (0.0-4.0); HEMOGLOBIN 12.1 g/dL (11.0-16.0); LYMPH # 3.5 K/uL (1.0-4.3); LYMPH % 26.2 % (20.0-40.0); MEAN CELL VOLUME 84.3 fL (81.0-99.0); MEAN CORPUSCULAR HEMOGLOBIN 28.9 pg (27.0-31.0); MEAN CORPUSCULAR HGB CONC 34.3 g/dL (33.0-37.0); MEAN PLATELET VOLUME 8.3 fL (7.2-11.7); MONO # 1.9 K/uL (0.0-0.8); MONO % 13.9 % (0.0-10.0); NEUT % 52.1 % (50.0-75.0); RBC 4.17 Mil/uL (3.80-5.20); RED CELL DISTRIBUTION WIDTH 15.4 % (11.5-14.5); WHITE BLOOD COUNT 13.4 K/uL (4.8-10.8)
[2018-01-04 07:05] LABS: ALB/GLOB RATIO 0.8 (1.0-2.1); ALBUMIN 3.6 g/dL (3.5-5.0); ALT/SGPT 21 U/L (9-52); AST/SGOT 42 U/L (14-36); BLOOD UREA NITROGEN 16 mg/dL (7-17); CALCIUM 8.4 mg/dl (8.6-10.4); GFR AFRICAN-AMERICAN > 60; GFR NON-AFRICAN AMERICAN > 60
[2018-01-04 08:39] VITALS: PULSE 75
--- NOTE | 2018-01-04 08:41 | CON ---
DATE: 01/03/2018 CHIEF COMPLAINT: Pyelonephritis. HISTORY OF PRESENT ILLNESS: The patient was admitted to the hospital with clinical evidence of pyelonephritis. She was started on antibiotics, and after being treated with antibiotics, her fever and flank pain improved. The patient gives no history of prior pyelonephritis. No history of problems in the past. No history of kidney stones. REVIEW OF SYSTEMS: RESPIRATORY: The patient has no respiratory complaints. GI: The patient is having no nausea or vomiting at present. She has a normal appetite and is eating during this examination. CARDIAC: Her cardiac history is negative. There is no chest pain or palpitations. ORTHOPEDIC: Negative. GYNECOLOGICAL: Negative. SOCIAL HISTORY: Not contributory. FAMILY HISTORY: Not contributory. PHYSICAL EXAMINATION: GENERAL: The patient is awake, alert, and oriented x3. HEAD, EARS, EYES, NOSE, AND THROAT: Within normal limits. NECK: Supple. There are no bruits, nodes, or masses. CHEST: Clear bilaterally. There are no rales or rhonchi. HEART: Normal sinus rhythm. There is no mass or organomegaly. ABDOMEN: Soft and nontender. There is no palpable renal enlargement. There is no CVA tenderness. VASCULAR: Declined by the patient. EXTREMITIES: Appear normal. IMPRESSION: Pyelonephritis. I reviewed the patient's lab data and her x-ray reports, all consistent with pyelonephritis. Since the patient is improving on present antibiotics, suggestively continuing the same, and no further evaluation at this point. Adam Corona MD
[2018-01-04] MEDS: metroNIDAZOLE IV 500 mg/100 ml 500 MG/100 ML BAG IVPB SCH ×2 (09:00→15:57)
--- NOTE | 2018-01-04 10:17 | CP.PCM.DIS ---
Provider - Provider Date of Admission: 12/29/17 18:50 Attending physician: Chris Narayan MD Time Spent in preparation of Discharge (in minutes): 40 Hospital Course - Lab Results Lab Results: Micro Results 12/31/17 08:40 Blood-Venous Blood Culture - Preliminary NO GROWTH AFTER 4 DAYS 12/31/17 08:00 Blood-Venous Blood Culture - Preliminary NO GROWTH AFTER 4 DAYS 12/29/17 18:40 Blood Blood Culture - Final NO GROWTH AFTER 5 DAYS 12/31/17 20:00 Urine,Clean Catch Urine Culture - Final No Growth (<1,000 CFU/ML) 12/29/17 13:52 Blood Blood Culture - Final Escherichia Coli 12/29/17 13:52 Blood Gram Stain - Final 12/29/17 21:37 Urine,Catheterized Urine Culture - Final No Growth (<1,000 CFU/ML) 12/29/17 18:53 Urine,Clean Catch Urine Culture - Final Escherichia Coli Most Recent Lab Values WBC 13.4 K/uL (4.8-10.8) H 01/04/18 06:30 RBC 4.17 Mil/uL (3.80-5.20) 01/04/18 06:30 Hgb 12.1 g/dL (11.0-16.0) 01/04/18 06:30 Hct 35.2 % (34.0-47.0) 01/04/18 06:30 MCV 84.3 fL (81.0-99.0) 01/04/18 06:30 MCH 28.9 pg (27.0-31.0) 01/04/18 06:30 MCHC 34.3 g/dL (33.0-37.0) 01/04/18 06:30 RDW 15.4 % (11.5-14.5) H 01/04/18 06:30 Plt Count 454 K/uL (130-400) H 01/04/18 06:30 MPV 8.3 fL (7.2-11.7) 01/04/18 06:30 Neut % (Auto) 52.1 % (50.0-75.0) 01/04/18 06:30 Lymph % (Auto) 26.2 % (20.0-40.0) 01/04/18 06:30 [place] % (Auto) 13.9 % (0.0-10.0) H 01/04/18 06:30 Eos % (Auto) 7.3 % (0.0-4.0) H 01/04/18 06:30 Baso % (Auto) 0.5 % (0.0-2.0) 01/04/18 06:30 Neut # (Auto) 7.0 K/uL (1.8-7.0) 01/04/18 06:30 Lymph # (Auto) 3.5 K/uL (1.0-4.3) 01/04/18 06:30 Anson # (Auto) 1.9 K/uL (0.0-0.8) H 01/04/18 06:30 Eos # (Auto) 1.0 K/uL (0.0-0.7) H 01/04/18 06:30 Baso # (Auto) 0.1 K/uL (0.0-0.2) 01/04/18 06:30 Neutrophils % (Manual) 76 % (50-75) H 12/30/17 06:56 Band Neutrophils % 16 % (0-2) H* 12/30/17 06:56 Lymphocytes % (Manual) 5 % (20-40) L 12/30/17 06:56 Monocytes % (Manual) 2 % (0-10) 12/30/17 06:56 Metamyelocytes % 1 % (0-0) H 12/30/17 06:56 Differential Comment 12/29/17 14:06 Platelet Estimate Slightly increased (NORMAL) H 12/30/17 06:56 RBC Morphology Normal 12/30/17 06:56 PT 16.6 SECONDS (9.7-12.2) H 12/30/17 06:56 INR 1.5 12/30/17 06:56 APTT 34 SECONDS (21-34) 12/30/17 06:56 pO2 31 mm/Hg (30-55) 12/29/17 19:06 VBG pH 7.32 (7.32-7.43) 12/29/17 19:06 VBG pCO2 31 mmHg (40-60) L 12/29/17 19:06 VBG HCO3 16.8 mmol/L 12/29/17 19:06 VBG Total CO2 17.0 mmol/L (22-28) L 12/29/17 19:06 VBG O2 Sat (Calc) 68.1 % (40-65) H 12/29/17 19:06 VBG Base Excess -8.9 mmol/L (0.0-2.0) L 12/29/17 19:06 VBG Potassium 2.7 mmol/L (3.6-5.2) L 12/29/17 19:06 Sodium 138.0 mmol/l (132-148) 12/29/17 19:06 Chloride 109.0 mmol/L (98-107) H 12/29/17 19:06 Glucose 78 mg/dl (65-105) 12/29/17 19:06 Lactate 1.1 mmol/L (0.7-2.1) 12/29/17 19:06 Sodium 138 mmol/L (132-148) 01/04/18 06:30 Potassium 4.2 mmol/L (3.6-5.2) 01/04/18 06:30 Chloride 101 mmol/L (98-107) 01/04/18 06:30 Carbon Dioxide 30 mmol/L (22-30) 01/04/18 06:30 Anion Gap 11 (10-20) 01/04/18 06:30 BUN 16 mg/dL (7-17) 01/04/18 06:30 Creatinine 0.9 mg/dL (0.7-1.2) 01/04/18 06:30 Est GFR ( Amer) > 60 01/04/18 06:30 Est GFR (Non-Af Amer) > 60 01/04/18 06:30 POC Glucose (mg/dL) 234 mg/dL (65-110) H 01/03/18 11:34 Random Glucose 90 mg/dL (65-105) 01/04/18 06:30 Calcium 8.4 mg/dl (8.6-10.4) L 01/04/18 06:30 Phosphorus 4.2 mg/dL (2.5-4.5) 01/04/18 06:30 Magnesium 2.2 mg/dL (1.6-2.3) 01/04/18 06:30 Total Bilirubin 0.4 mg/dL (0.2-1.3) 01/04/18 06:30 AST 42 U/L (14-36) H D 01/04/18 06:30 ALT 21 U/L (9-52) 01/04/18 06:30 Alkaline Phosphatase 311 U/L (38-126) H 01/04/18 06:30 Total Protein 8.0 g/dL (6.3-8.3) 01/04/18 06:30 Albumin 3.6 g/dL (3.5-5.0) 01/04/18 06:30 Globulin 4.4 gm/dL (2.2-3.9) H 01/04/18 06:30 Albumin/Globulin Ratio 0.8 (1.0-2.1) L 01/04/18 06:30 Venous Blood Potassium 2.7 mmol/L (3.6-5.2) L 12/29/17 19:06 Urine Color Yellow (YELLOW) 12/29/17 21:37 Urine Clarity Hazy (Clear) 12/29/17 21:37 Urine pH 6.0 (5.0-8.0) 12/29/17 21:37 Ur Specific [place] 1.043 (1.003-1.030) H 12/29/17 21:37 Urine Protein 1+ mg/dL (NEGATIVE) H 12/29/17 21:37 Urine Glucose (UA) Normal mg/dL (Normal) 12/29/17 21:37 Urine Ketones Negative mg/dL (NEGATIVE) 12/29/17 21:37 Urine Blood 1+ (NEGATIVE) H 12/29/17 21:37 Urine Nitrate Negative (NEGATIVE) 12/29/17 21:37 Urine Bilirubin Negative (NEGATIVE) 12/29/17 21:37 Urine Urobilinogen Normal mg/dL (0.2-1.0) 12/29/17 21:37 Ur Leukocyte Esterase 3+ Raudel/uL (Negative) H 12/29/17 21:37 Urine WBC (Auto) 49 /hpf (0-5) H 12/29/17 21:37 Urine RBC (Auto) 25 /hpf (0-3) H 12/29/17 21:37 Ur Squamous Epith Cells 9 /hpf (0-5) H 12/29/17 21:37 Urine Bacteria Few (<OCC) H 12/29/17 21:37 Influenza Typ A,B (EIA) Negative for flu a/b (NEGATIVE) 12/29/17 14:06 - Hospital Course Hospital Course: H&P: 57 year old female with past medical history of gastritis and schizophrenia presented to hospital for "not feeling well." Family at bedside and help with history. Patient has hard time answering questions that are asked due to history of schizophrenia and tangential thought process. Patient returned from [facility] about 1 month ago. She states that since her return, she has had diffuse abdominal discomfort. Denies having any dysuria, hematuria, N/V/D/C. She also complains of dry cough x 1 month. She also c/o subjective fevers since this morning. CT scan of chest/abdomen/pelvis done on admission was positive for right sided pylonephritis. Denies having any CP, SOB, N/V/D/C, weight changes, LE swelling. She complains of a headache in the frontal region. Patient gets most of her medications from [facility]. PMHx: stated above sx: hysterectomy 5 years ago Social: Denies Meds: Lisinopril 5 mg po qd (prescribed by Dr. Knight), Lorazepam 2 mg po HS, Sertraline 50 mg po QD, Clarithromycin 500 mg po qd (?), Biperidin 2 mg po qd, Chloropromazine 100 mg po QD (?) PMD: none NKDA Hospital course: During this admission, patient was diagnosed with Pyelonephritis, Headache, Pulmonary nodule, History of Gastritis, History of Schizophrenia, Insomnia, History of HTN, History of Depression. During this admission, urology Dr. Corona , infectious disease Dr. Mcclure, and psychiatry Dr. Perez were consulted. CT of head/chest/abdomen/pelvis performed to locate source of symptoms, leading to diagnosis of right sided pyelonephritis. Treated initially with Primaxin 500mg IV Q6H, switched to Rocephin 2gm IV QD according to ID recommendations. WBC downtrending, 24.7 on admission --> 13.4 on 01/04/18. Per ID, patient will be discharged with antibiotic regimen: Cipro 500mg PO BID for 14 days. Incidental finding of pulmonary nodule found on CT scan, recommended for outpatient follow-up to assess need for further work-up. History of schizophrenia and depression treated according to psychiatry recommendations, no acute episodes during the admission. HTN controlled on home medications, continued during hospitalization. Imaging: Initial chest x-ray (12/29/17): No active disease. Repeat chest x-ray (12/31/17): Moderate venous congestion. Bilateral paratracheal prominence likely represents prominent vasculature. Upper lobe granulomatous changes. Bilateral hilar prominence. Enlarged ectatic aorta. Cardiomegaly. Repeat chest x-ray (01/03/18): No active disease. Head CT (12/29/17): No intracranial mass, hemorrhage or evidence of acute infarct. Mild chronic pansinusitis. Otherwise unremarkable. Chest/Abdomen/Pelvis CT (12/29/17): Edematous right kidney, inflammatory changes suggest acute pyelonephritis and ureteritis. There is a single, solid, pulmonary nodule that is < 6 mm in size. According to the 2017 Fleischner criteria, if the patient is low risk, no routine follow-up is recommended. if the patient is high risk, an optional CT at 12 months is recommended. Por favor tome estos medicamentos 1.) Seroquel 100mg shanna tableta en la noche 2.) Cirpofloxacin 500mg shanna tableta dos veces al da karine 14 rojas 3.) Lisinopril 5mg shanna tableta por marcie 4.) Sertraline 50mg shanna tableta por marcie Por favor llame para hacer shanna daquan: [place] [address] # [phone] Por favor regrese a la angus de emergencias si los sntomas regresan o empeoran. This is a summary of the patient's hospital course, please refer to full EMR for complete record. Discharge Exam - Head Exam Head Exam: ATRAUMATIC, NORMAL INSPECTION - Eye Exam Eye Exam: EOMI, Normal appearance - ENT Exam ENT Exam: Mucous Membranes Moist - Respiratory Exam Respiratory Exam: Clear to PA & Lateral, NORMAL BREATHING PATTERN - Cardiovascular Exam Cardiovascular Exam: REGULAR RHYTHM, +S1, +S2 - GI/Abdominal Exam GI & Abdominal Exam: Normal Bowel Sounds, Soft. absent: Tenderness - Extremities Exam Extremities exam: normal inspection - Neurological Exam Neurological exam: Alert, Oriented x3 - Psychiatric Exam Psychiatric exam: Normal Affect, Normal Mood - Skin Skin Exam: Normal Color Discharge Plan - Discharge Medications Prescriptions: Ciprofloxacin Lactate [Ciprofloxacin] 500 mg IV BID #28 vial Lisinopril [Zestril] 5 mg PO DAILY #30 tab QUEtiapine [Seroquel] 100 mg PO HS #30 tab Sertraline [Zoloft] 50 mg PO DAILY #30 tab - Follow Up Plan Condition: FAIR Disposition: HOME/ ROUTINE Instructions: Ciprofloxacin (Systemic), Lisinopril, Urinary Tract Infection in Women (DC) Referrals: Ladan Knight MD [Staff Provider] -
[2018-01-04] MEDS: Pantoprazole 40 mg EC Tab PO SCH (10:55)
[2018-01-04] MEDS: cefTRIAXone 2 GM in Sodium Chloride 0.9% 100 ML IVPB SCH (11:00)
[2018-01-04 16:08] VITALS: BP 121/71; TEMP 98.2; O2SAT 97
== END 2018-01-04 17:04 | disposition home or self-care (01) | DRG 690 ==
LOC: C.ER 12:46 → C.9E 18:50 → C.3T 21:09
PROVIDERS: ADMIT Internal Medicine; ATTEND Internal Medicine
DX: N12 Tubulo-interstitial nephritis, not specified as acute or chronic (principal); F23 Brief psychotic disorder; N17.9 Acute kidney failure, unspecified; I50.9 Heart failure, unspecified; I11.0 Hypertensive heart disease with heart failure; F43.10 Post-traumatic stress disorder, unspecified; G47.00 Insomnia, unspecified; I11.9 Hypertensive heart disease without heart failure; I51.7 Cardiomegaly; I77.819 Aortic ectasia, unspecified site; J32.4 Chronic pansinusitis; F32.9 Major depressive disorder, single episode, unspecified; B96.20 Unspecified Escherichia coli [E. coli] as the cause of diseases classified elsewhere; K29.70 Gastritis, unspecified, without bleeding

== ENCOUNTER 2018-01-07 12:57 | Emergency (ER) | payer MEDICAID, SELFPAY ==
[2018-01-07 13:21] VITALS: RESP 18
[2018-01-07 14:31] LABS: BASO # 0.1 K/uL (0.0-0.2); LYMPH # 4.1 K/uL (1.0-4.3); MONO # 1.3 K/uL (0.0-0.8); NEUT % 56.4 % (50.0-75.0)
[2018-01-07 14:38] LABS: BASO % 0.7 % (0.0-2.0); EOS # 1.1 K/uL (0.0-0.7); EOS % 7.2 % (0.0-4.0); HEMOGLOBIN 13.8 g/dL (11.0-16.0); LYMPH % 27.1 % (20.0-40.0); MEAN CELL VOLUME 84.1 fL (81.0-99.0); MEAN CORPUSCULAR HEMOGLOBIN 28.6 pg (27.0-31.0); MEAN CORPUSCULAR HGB CONC 34.1 g/dL (33.0-37.0); MEAN PLATELET VOLUME 7.4 fL (7.2-11.7); MONO % 8.6 % (0.0-10.0); NEUT # 8.5 K/uL (1.8-7.0); RBC 4.82 Mil/uL (3.80-5.20); WHITE BLOOD COUNT 15.1 K/uL (4.8-10.8)
[2018-01-07 14:50] LABS: SQUAMOUS EPITHIAL 14 /hpf (0-5); URINE BACTERIA RARE (<OCC); URINE BILIRUBIN NEGATIVE (NEGATIVE); URINE BLOOD NEGATIVE (NEGATIVE); URINE CLARITY Hazy (Clear); URINE COLOR Yellow (YELLOW); URINE GLUCOSE (UA) NORMAL (Normal); URINE LEUKOCYTE ESTERASE TRACE Leu/uL (Negative); URINE PROTEIN NEGATIVE (NEGATIVE); URINE UROBILINOGEN NORMAL mg/dL (0.2-1.0)
[2018-01-07 14:57] LABS: ALB/GLOB RATIO 0.7 (1.0-2.1); ALBUMIN 3.9 g/dL (3.5-5.0); ALT/SGPT 28 U/L (9-52); AST/SGOT 36 U/L (14-36); BLOOD UREA NITROGEN 11 mg/dL (7-17); CALCIUM 9.1 mg/dl (8.6-10.4); GFR AFRICAN-AMERICAN > 60; GFR NON-AFRICAN AMERICAN > 60
[2018-01-07 17:08] LABS: BARBITURATES, UR NEGATIVE (NEGATIVE); BENZODIAZEPINES, UR NEGATIVE (NEGATIVE); OPIATES, UR NEGATIVE (NEGATIVE); PHENCYCLIDINE, UR NEGATIVE (NEGATIVE)
--- NOTE | 2018-01-07 17:55 | C.PDOC ---
History Of Present Illness 57 y/o female presents with multiple medical problems and schizophrenia, presents accompanied by her mother, with complaints of general malaise and difficulty sleeping for the past week. Associated with cold and hot sweats, and specifically cold feet. Patient was recently discharged from hospital, where she was admitted and treated for pyelonephritis. During her admission, patient was evaluated by psychiatry and found to have multiple somatic complaints, so medication readjustments were made. Patient is also complaining of a headache, abdominal discomfort, and nausea. She denies any chest pain, SOB, fever, or chills. Time Seen by Provider: 01/07/18 13:32 Chief Complaint (Nursing): Headache History Per: Patient History/Exam Limitations: no limitations Onset/Duration Of Symptoms: Days Current Symptoms Are (Timing): Still Present Reports Recently: Hospitalized Past Medical History Reviewed: Historical Data, Nursing Documentation, Vital Signs Vital Signs: Last Vital Signs Temp 98.2 F 01/07/18 15:05 Pulse 68 01/07/18 15:05 Resp 18 01/07/18 15:05 BP 130/74 01/07/18 15:05 Pulse Ox 98 01/07/18 17:55 - Medical History PMH: Gastritis, HTN, Schizophrenia Denies: Depression (denies), Diabetes, Hepatitis, HIV, Chronic Kidney Disease , Seizures, Sexually Transmitted Disease Other Surgeries: Hysterectomy Family History: States: No Known Family Hx - Social History Hx Tobacco Use: No Hx Alcohol Use: No Hx Substance Use: No - Immunization History Hx Tetanus Toxoid Vaccination: No Hx Influenza Vaccination: No Hx Pneumococcal Vaccination: No Review Of Systems Except As Marked, All Systems Reviewed And Found Negative. Constitutional: Positive for: Sweats (cold and hot), Malaise. Negative for: Fever, Chills Cardiovascular: Negative for: Chest Pain Respiratory: Negative for: Shortness of Breath Gastrointestinal: Positive for: Nausea, Abdominal Pain Neurological: Positive for: Headache Psych: Positive for: Other (Insomnia) Physical Exam - Physical Exam Appears: No Acute Distress, Other (Anxious appearing) Skin: Normal Color (Flushed), Warm, Dry Head: Atraumatic, Normacephalic Eye(s): bilateral: Normal Inspection, PERRL, EOMI Ear(s): Bilateral: Normal Nose: Normal Oral Mucosa: Moist Throat: Normal, No Erythema, No Exudate Neck: Normal ROM, Supple Chest: Symmetrical, No Tenderness Cardiovascular: Rhythm Regular, No Murmur Respiratory: Normal Breath Sounds, No Rales, No Rhonchi, No Wheezing Gastrointestinal/Abdominal: Soft, No Tenderness, No Distention Extremity: Bilateral: Atraumatic, Normal Color And Temperature, Normal ROM Neurological/Psych: Oriented x3, Normal Speech, Normal Motor, Normal Sensation, Other (No focal deficits) Gait: Steady ED Course And Treatment - Laboratory Results Result Diagrams: 01/07/18 14:28 01/07/18 14:28 O2 Sat by Pulse Oximetry: 98 (RA) Pulse Ox Interpretation: Normal Medical Decision Making Medical Decision Making: All prior records reviewed. Time: 13:46 Initial Plan: * Alcohol serum * Urine drug screen * CMP * CBC * UA * Urine culture Labs are grossly unremarkable. Urine is unremarkable. Vital signs are all wnl. Patient is medically stable. Pending crisis evaluation. Crisis saw patient and will expedite her appointment at [facility] to modify patients medication regimen. Disposition Counseled Patient/Family Regarding: Need For Followup - Disposition Disposition: HOME/ ROUTINE Disposition Time: 17:52 Condition: GUARDED Additional Instructions: Siga en la clinica de psichiatria Forms: Gen Discharge Inst Arabic - POA Present On Arrival: None - Clinical Impression Clinical Impression: Examination, medical, general - Scribe Statement The provider has reviewed the documentation as recorded by the Scribe (Nisha Antonio) Provider Attestation: All medical record entries made by the Scribe were at my direction and personally dictated by me. I have reviewed the chart and agree that the record accurately reflects my personal performance of the history, physical exam, medical decision making, and the department course for this patient. I have also personally directed, reviewed, and agree with the discharge instructions and disposition.
[2018-01-07 18:40] VITALS: BP 132/74; PULSE 64; TEMP 98.1; O2SAT 99
== END 2018-01-07 18:37 | disposition home or self-care (01) ==
LOC: C.ER 12:57
DX: Z00.00 Encounter for general adult medical examination without abnormal findings (principal)

== ENCOUNTER 2018-03-15 09:03 | Inpatient (IN) | payer OTHER ==
--- NOTE | 2018-03-15 09:09 | C.PDOC ---
Time Seen by Provider: 03/15/18 09:06 Chief Complaint (Nursing): Upper Extremity Problem/Injury Past Medical History - Medical History PMH: Gastritis, HTN, Schizophrenia Denies: Depression (denies), Diabetes, Hepatitis, HIV, Chronic Kidney Disease , Seizures, Sexually Transmitted Disease - Social History Hx Tobacco Use: No Hx Alcohol Use: No Hx Substance Use: No - Immunization History Hx Tetanus Toxoid Vaccination: No Hx Influenza Vaccination: No Hx Pneumococcal Vaccination: No Disposition - Disposition
--- NOTE | 2018-03-15 09:11 | C.PDOC ---
History Of Present Illness 58 year old female patient presents to the ER with c/o left elbow and left back injury. Patient states she accidentally slipped on a step and landed on her left elbow TAKE OUT WAITER. Patient reports her left elbow is in pain and has limited ROM due to pain. Patient is able to ambulate and denies LOC, weakness, or numbness. SP FALL TAKE OUT WAITER CO L ELBOW AND L BACK INJURY. PS ACCID SLIPPED ON STEP, LANDED ON L ELBOW. NO LOC, +AMBUL. PAIN L ELBOW, LIMITED MOVEMENT. NO ASSOC WEAK/NUMB EXAM MILD DIST NONTOXIC OBESE HEENT ATRAUM NECK SUPPLE EXT LUE: LIMITED ROM L ELBOW, NO GROSS DEFORM/SWELL; GEN TEND L ELBOW SKIN INTACT BACK GEN TEND L UPPER/MID BACK; NO BONY TEND NEURO INTACT REMAINDER NEG - HPI Time Seen by Provider: 03/15/18 09:06 Chief Complaint (Nursing): Upper Extremity Problem/Injury History Per: Patient History/Exam Limitations: no limitations Injury Occurred (Timing): Just Before Arrival Location Of Injury: Left: Arm (elbow), Back Past Medical History Reviewed: Historical Data, Nursing Documentation, Vital Signs Vital Signs: Last Vital Signs Temp 98.2 F 03/15/18 10:46 Pulse 75 03/15/18 10:46 Resp 18 03/15/18 10:46 BP 122/83 03/15/18 10:46 Pulse Ox 99 03/15/18 10:46 - Medical History PMH: Gastritis, HTN, Schizophrenia Family History: States: No Known Family Hx - Social History Hx Tobacco Use: No Hx Alcohol Use: No Hx Substance Use: No - Immunization History Hx Tetanus Toxoid Vaccination: No Hx Influenza Vaccination: No Hx Pneumococcal Vaccination: No Review Of Systems Except As Marked, All Systems Reviewed And Found Negative. Musculoskeletal: Positive for: Arm Pain (left elbow), Back Pain (left) Neurological: Negative for: Weakness, Numbness, Other (LOC) Physical Exam - Physical Exam Appears: Non-toxic, In Acute Distress (mild), Other (obese) Skin: Normal Color, Warm, Dry Head: Atraumatic, Normacephalic Neck: Normal ROM, Supple Back: No CVA Tenderness, No Vertebral Tenderness, No Paraspinal Tenderness, Other (general tenderness in left upper/mid back ) Extremity: Tenderness (general tenderness to left elbow), No Deformity, No Swelling, Other (skin intact) Pulses: Left Radial: Normal, Right Radial: Normal Neurological/Psych: Oriented x3, Normal Speech, Normal Motor, Normal Sensation, Normal Reflexes, Other (neuro intact; no focal deficits) Gait: Steady ED Course And Treatment - Laboratory Results Result Diagrams: 03/15/18 10:29 03/15/18 10:29 ECG: Interpreted By Me, Viewed By Me ECG Rhythm: Sinus Rhythm (81), PVC (541) Progress Note: Impression: left elbow and left back pain from accidental fall. Plan: -- tylenol 650mg. -- XR left elbow. -- XR left forearm. -- XR left humerus Orthopedic Time Performed: 09:58 Time Out: Side verified, Site verified, Patient ID confirmed Procedure: Splint Type: Short, Posterior Location: Left, Arm Consent obtained: Verbal Performed by: Attending Physician Diagnosis: Fracture Capillary refill: Normal Distal Sensation: Normal Distal Motor Function: Normal Capillary Refill: Normal Compartment: Normal Distal Sensation: Normal Distal Motor Function: Normal Patient tolerated procedure: Well Progress - Re-Evaluation Re-evaluation Note: 03/15/18 09:45 D/W DR Brad REYES [employer] LEGAL FINANCIAL SPECIALIST: XRAY REVIEWED. REQUEST CT, ADMIT MEDICINE, WILL CONSULT, FOR SURG TOMORROW 03/15/18 10:10 D/W DR MOLINA WILL ADMIT - Data Reviewed Data Reviewed: Lab, Diagnostic imaging, EKG - Continuity of Care Discussed patient case with:: On-call PMD-pt unassigned Discussed pt. case with analysis consultant/specialty: Orthopedic Surgery Disposition Counseled Patient/Family Regarding: Studies Performed, Diagnosis - Disposition Disposition: HOSPITALIZED Disposition Time: 10:10 Condition: STABLE - POA Present On Arrival: Falls Or Trauma - Clinical Impression Clinical Impression: Radius fracture - Scribe Statement The provider has reviewed the documentation as recorded by the Pauletteibjaky Garvey Do Provider Attestation: All medical record entries made by the Scribe were at my direction and personally dictated by me. I have reviewed the chart and agree that the record accurately reflects my personal performance of the history, physical exam, medical decision making, and the department course for this patient. I have also personally directed, reviewed, and agree with the discharge instructions and disposition. Orthopedic Care Application Of:: Sling
[2018-03-15] MEDS ORDERED: Sodium Chloride 0.9% 1,000 ML IV ONE (10:03)
--- NOTE | 2018-03-15 10:18 | RAD ---
Date of service: 03/15/2018 PROCEDURE: CHEST RADIOGRAPH, 1 VIEW HISTORY: Pre Op COMPARISON: 01/03/2018 FINDINGS: LUNGS: Clear. PLEURA: No pneumothorax or pleural fluid seen. CARDIOVASCULAR: Normal. OSSEOUS STRUCTURES: No significant abnormalities. VISUALIZED UPPER ABDOMEN: Normal. OTHER FINDINGS: None. IMPRESSION: No active disease.
[2018-03-15 10:35] LABS: BASO % 0.1 % (0.0-2.0); EOS % 0.1 % (0.0-4.0); HEMOGLOBIN 12.5 g/dL (11.0-16.0); LYMPH # 2.1 K/uL (1.0-4.3); LYMPH % 7.6 % (20.0-40.0); MEAN CELL VOLUME 83.5 fL (81.0-99.0); MEAN CORPUSCULAR HEMOGLOBIN 28.7 pg (27.0-31.0); MEAN CORPUSCULAR HGB CONC 34.4 g/dL (33.0-37.0); MEAN PLATELET VOLUME 8.3 fL (7.2-11.7); MONO # 1.1 K/uL (0.0-0.8); NEUT # 24.1 K/uL (1.8-7.0); NEUT % 88.2 % (50.0-75.0); RBC 4.36 Mil/uL (3.80-5.20); RED CELL DISTRIBUTION WIDTH 15.1 % (11.5-14.5)
[2018-03-15 10:40] LABS: PLATELET COUNT 325 K/uL (130-400); WHITE BLOOD COUNT 27.3 K/uL (4.8-10.8)
[2018-03-15 10:48] LABS: CALCIUM 8.9 mg/dl (8.6-10.4); GFR AFRICAN-AMERICAN > 60; GFR NON-AFRICAN AMERICAN > 60
--- NOTE | 2018-03-15 10:51 | RAD ---
Date of service: 03/15/2018 PROCEDURE: Radiographs of the Left Forearm HISTORY: TRAUMA COMPARISON: None available. TECHNIQUE: Frontal and lateral views obtained. FINDINGS: BONES: Longitudinal comminuted mildly displaced fracture of the proximal radius possibly extending to the proximal articular surface. There is a small joint effusion/ hemarthrosis. There is no definite ulnar fracture appreciated. JOINT SPACES: Unremarkable. OTHER FINDINGS: None. IMPRESSION: Comminuted mildly displaced longitudinal/oblique fracture of the proximal radius, with possible intra-articular extension. No definite ulnar fracture appreciated.
--- NOTE | 2018-03-15 10:54 | RAD ---
PROCEDURE: Radiographs of the left humerus. HISTORY: TRAUMA COMPARISON: Seen at FINDINGS: BONES: There is no humeral fracture appreciated. Longitudinal fracture of the proximal ulna noted. Please see report of radiograph left elbow and report of radiograph left forearm. SOFT TISSUES: Normal. OTHER FINDINGS: None. IMPRESSION: No humeral fracture appreciated.
--- NOTE | 2018-03-15 10:55 | RAD ---
Date of service: 03/15/2018 PROCEDURE: Radiographs of the left elbow. HISTORY: TRAUMA COMPARISON: No prior. FINDINGS: BONES: There is a the longitudinal markedly displaced comminuted fracture of the proximal ulna extending to the articular surface. There is no definite radial fracture appreciated no fracture of the radial head may be appreciated upon evaluation with cross-sectional imaging. There is evidence of hemarthrosis. There is no humeral fracture appreciated. There is no dislocation. JOINTS: See above SOFT TISSUES: Normal. JOINT EFFUSION: See above OTHER FINDINGS: None IMPRESSION: Comminuted displaced intra-articular proximal ulnar fracture.
[2018-03-15 10:57] LABS: INR 1.2; PROTHROMBIN TIME 12.8 SECONDS (9.7-12.2)
[2018-03-15 11:17] LABS: ALB/GLOB RATIO 1.1 (1.0-2.1); ALBUMIN 4.3 g/dL (3.5-5.0); ALT/SGPT 55 U/L (9-52); AST/SGOT 59 U/L (14-36); BLOOD UREA NITROGEN 14 mg/dL (7-17)
--- NOTE | 2018-03-15 11:23 | CT ---
Date of service: 03/15/2018 PROCEDURE: CT of the left elbow without contrast HISTORY: TRAUMA COMPARISON: Comparison is made with the previous x-ray of the left forearm and left elbow done on same-day TECHNIQUE: Axial and reformatted coronal and sagittal CT images of the left elbow were obtained without IV contrast administration. 3D reformatted images of the left elbow were also obtained. Total exam DLP: 139.3 FINDINGS: There is a comminuted displaced fracture at the proximal portion of the left ulnar bone associated with displaced of large bony fragment which includes the coronoid process and portion of the proximal ulnar shaft. The fracture extending from the trochlear notch at the base of the coronoid process to the proximal portion of the ulnar shaft. There are also comminuted complex fractures at the coronoid process. There is comminuted displaced fracture at the proximal head of the radius bone. There is acute comminuted displaced fracture at the medial aspect of the radius head at the radioulnar articulation. There is no evidence of dislocation at the ulnohumeral joint. There is mild dislocation of the left radius head relative to the capitellum noted. There is a comminuted displaced destructive fracture at the lateral aspect of the humeral capitellum associated with displacement of 2 bony fragments. There are multiple displaced bony fragments seen around the proximal radial and ulnar including multiple fragments inside the elbow joint. There is a small to moderate left elbow joint effusion. There are adjacent subcutaneous stranding and soft tissue edema around the left elbow. IMPRESSION: Multiple comminuted and distracted fractures at the proximal portion of the left radial and ulnar bones as described above. Large displaced bony fragment from the proximal left ulna which includes coronoid process and portion of the left ulnar shaft. Mild posterior dislocation at the radio humeral joint. Acute comminuted displaced fracture at the lateral aspect of the left capitellum.
[2018-03-15 11:30] LABS: BANDS 4 % (0-2); EOSINOPHIL 1 % (0-4); NEUTROPHIL 81 % (50-75); TOTAL CELLS COUNTED 100
[2018-03-15 11:31] LABS: LYMPHOCYTE 9 % (20-40); MONOCYTE 5 % (0-10); PLATELET ESTIMATE NORMAL (NORMAL)
[2018-03-15 11:32] LABS: ANISOCYTOSIS SLIGHT
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
--- NOTE | 2018-03-15 14:10 | CT ---
Date of service: 03/15/2018 PROCEDURE: CT HEAD WITHOUT CONTRAST. HISTORY: s/p fall COMPARISON: Comparison is made to the previous study dated 12/29/2017 TECHNIQUE: Axial computed tomography images were obtained through the head/brain without intravenous contrast. Radiation dose: Total exam DLP = 982.82 mGy-cm. This CT exam was performed using one or more of the following dose reduction techniques: Automated exposure control, adjustment of the mA and/or kV according to patient size, and/or use of iterative reconstruction technique. FINDINGS: HEMORRHAGE: No intracranial hemorrhage. BRAIN: No mass effect or edema. No atrophy or chronic microvascular ischemic changes. VENTRICLES: Unremarkable. No hydrocephalus. CALVARIUM: Unremarkable. PARANASAL SINUSES: Unremarkable as visualized. No significant inflammatory changes. MASTOID AIR CELLS: Unremarkable as visualized. No inflammatory changes. OTHER FINDINGS: None. IMPRESSION: No evidence of acute intracranial hemorrhage intracranial collection mass effect or midline shift. No evidence of skull fracture.
--- NOTE | 2018-03-15 15:20 | PCM.PSYCH ---
Initial Psychiatric Evaluation - Initial Psychiatric Evaluation Type of Admission: Voluntary Legal Status: Capacity Chief Complaint (in patient's own words): I don't feel anxious or depressed History of Present Illness and Precipitating Events: HPI: Patient is a 58 year old Croatian speaking patient who was admitted here after she fell and fractured her left radius ulna. Psychiatry was consulted for her history of schizophrenia. History obtained via nurse Barksdale at bedside. She has been hospitalized in the psychiatric unit recently in September 2017 for schizophrenia. She was reportedly diagnosed with schizophrenia when she was in [facility] years ago. Today, she states she does not feels anxious or depressed currently, only complains of pain in her left arm. She denies hearing any voices or seeing anything strange. She denies feelings of paranoia and denies feeling someone is out to get her. She denies any thoughts of suicide or homicide. History limited since patient can be occasionally tangential and her family at bedside answers questions for her. 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 She states she has not taken her medications for about a month or so, and has an appointment scheduled in the clinic for March 22 for a refill of her prescriptions. Past psychiatric hospitalizations: Admitted here in September 2017 for schizophrenia PMH: GERD, schizophrenia PSH: hysterectomy Home Meds: as per prior notes - Sertraline 50mg daily, Seroquel 100mg at night Social hx: denies tobacco, alcohol or drug abuse. Lives with her parents. 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 Allergies: NKDA PMD: [facility] Current Medications: Active Medications Generic Name Dose Route Start Last Admin Trade Name Freq PRN Reason Stop Dose Admin Famotidine 20 mg 03/15/18 18:00 Pepcid PO BID LELA Heparin Sodium (Porcine) 5,000 units 03/15/18 14:00 Heparin IV Q8 LELA Sodium Chloride 1,000 mls @ 100 mls/hr 03/15/18 10:03 03/15/18 11:04 Sodium Chloride 0.9% IV 03/15/18 20:02 100 mls/hr .Q10H ONE Administration Ceftriaxone Sodium 1 gm/ 100 mls @ 100 mls/hr 03/15/18 14:00 Sodium Chloride IVPB Q12H [facility] Protocol Pneumococcal Polyvalent Vaccine 0.5 ml 03/17/18 10:00 Pneumovax 23 Vaccine IM 03/17/18 10:01 .ONCE ONE Saccharomyces Boulardii 250 mg 03/15/18 18:00 Florastor PO BID LELA Past Psychiatric History - Past Psychiatric History Previous Treatment History: Inpatient Pertinent Medical Hx (Current Medical&Sleep Prob, Allergies): Allergies Allergy/AdvReac Type Severity Reaction Status Date / Time No Known Allergies Allergy Verified 01/07/18 13:21 Lisinopril [Zestril] 5 mg PO DAILY #30 tab 01/04/18 QUEtiapine [Seroquel] 100 mg PO HS #30 tab 01/04/18 Sertraline [Zoloft] 50 mg PO DAILY 01/07/18 Review of Systems - Review of Systems All systems: reviewed and no additional remarkable complaints except - Musculoskeletal Additional comments: Fracture of left radius and ulna - Psychiatric Psychiatric: absent: Anxiety, Auditory Hallucinations, Depression, Hallucinations, Homicidal Ideation, Paranoia, Suicidal Ideation, Visual Hallucinations, Tactile Hallucinations Mental Status Examination - Personal Presentation Personal Presentation: Looks stated age, Obese - Affect Affect: Constricted - Motor Activity Motor Activity: Calm - Reliability in Providing Information Reliability in Providing Information: Poor, due to alteration in thoughts ( Patient can be quite tangential while providing history. Family provides history ) - Speech Speech: Tangential, Coherent - Mood Mood: Neutral (Does not appear depressed or anxious. ) - Formal Thought Process Formal Thought Process: Perservation (patient kept talking about her job) - Hallucinations/Delusions Additional comments: no hallucinations or delusions - Obsessions/Compulsions Obsessions: No Compulsions: No - Cognitive Functions Orientation: Person, Place, Situation Sensorium: Alert Attention/Concentration: Easily distracted Estimate of Intelligence: Below average - Risk Risk: Diminished functioning - Strength & Assets Inventory Strength & Assets Inventory: Family support DSM 5 DX - DSM 5 DSM 5 Diagnosis: Schizophrenia - Recommended/Plan of Treatment Treatment Recommendations and Plan of Treatment: Schizophrenia Atarax 25mg Q6 PRN Seroquel 100mg PO HS Continue to monitor Case discussed with Dr. Zia Robertson, PGY1
[2018-03-15 16:11] LABS: SQUAMOUS EPITHIAL 2 /hpf (0-5); URINE BACTERIA RARE (<OCC); URINE BILIRUBIN NEGATIVE (NEGATIVE); URINE BLOOD 1+ (NEGATIVE); URINE COLOR Straw (YELLOW); URINE GLUCOSE (UA) NORMAL (Normal); URINE LEUKOCYTE ESTERASE 3+ Leu/uL (Negative); URINE PROTEIN NEGATIVE (NEGATIVE); URINE UROBILINOGEN NORMAL mg/dL (0.2-1.0)
[2018-03-15 16:20] LABS: URINE CLARITY HAZY (Clear)
[2018-03-15] MEDS: Saccharomyces Boulardi 250 mg Cap PO SCH (18:59)
[2018-03-15] MEDS ORDERED: Vancomycin 1 gm/NS 200 ml 1 GM/200 ML BAG IVPB STA (22:06)
[2018-03-15] MEDS: Sodium Chloride 0.9% 1,000 ML IV SCH (23:04)
[2018-03-15 23:23] LABS: BLOOD UREA NITROGEN 11 mg/dL (7-17); CALCIUM 8.3 mg/dl (8.6-10.4); GFR AFRICAN-AMERICAN > 60; GFR NON-AFRICAN AMERICAN > 60
[2018-03-16] MEDS ORDERED: Alum-Mag Hydrox-Simethicone Susp (30 mL) PO ONE (04:53)
[2018-03-16] MEDS: Sodium Chloride 0.9% 1,000 ML IV SCH ×3 (06:50→17:30)
--- NOTE | 2018-03-16 07:26 | CP.PCM.PN ---
Subjective - Date & Time of Evaluation Date of Evaluation: 03/16/18 Time of Evaluation: 07:26 - Subjective Subjective: Medicine Note for Dr Hernandez Service Pt examined and seen at bedside. Pt reports palpitations, night sweats, fever, headache and left arm pain. Pt also reports increased frequency of urination. She states that her symptoms have not improved since admission. Patient denies chest pain, SOB, N/V, or pain with urination. Objective - Vital Signs/Intake and Output Vital Signs (last 24 hours): Temp Pulse Resp BP Pulse Ox 101.7 F H 105 H 20 149/78 97 03/16/18 05:55 03/16/18 04:30 03/16/18 04:30 03/16/18 04:30 03/16/18 04:30 Intake and Output: 03/16/18 03/16/18 06:59 18:59 Intake Total 2400 Output Total 3500 Balance -1100 - Medications Medications: Current Medications Famotidine (Pepcid) 20 mg PO BID [facility] Last Admin: 03/15/18 18:59 Dose: 20 mg Hydroxyzine HCl (Atarax) 25 mg PO Q6 PRN PRN Reason: Anxiety Ceftriaxone Sodium 1 gm/ (Sodium Chloride) 100 mls @ 100 mls/hr IVPB Q12H [facility] PRN Reason: Protocol Last Admin: 03/16/18 02:58 Dose: 100 mls/hr Vancomycin/Sodium Chloride (Vancomycin 1 Gm/Ns 200 Ml) 1 gm in 200 mls @ 133 mls/hr IVPB Q12H [facility] PRN Reason: Protocol Stop: 03/21/18 10:01 Sodium Chloride (Sodium Chloride 0.9%) 1,000 mls @ 100 mls/hr IV .Q10H [facility] Last Admin: 03/16/18 06:50 Dose: 100 mls/hr Morphine Sulfate (Morphine) 2 mg IVP Q4 PRN PRN Reason: Pain, severe (8-10) Last Admin: 03/16/18 04:37 Dose: 2 mg Pneumococcal Polyvalent Vaccine (Pneumovax 23 Vaccine) 0.5 ml IM .ONCE ONE Stop: 03/17/18 10:01 Quetiapine Fumarate (Seroquel) 100 mg PO [facility] Last Admin: 03/15/18 21:10 Dose: 100 mg Saccharomyces Boulardii (Florastor) 250 mg PO BID [facility] Last Admin: 03/15/18 18:59 Dose: 250 mg - Labs Labs: 03/15/18 10:29 03/15/18 23:04 PT 12.8 SECONDS (9.7-12.2) H 03/15/18 10:35 INR 1.2 03/15/18 10:35 APTT 41 SECONDS (21-34) H 03/15/18 10:35 - Constitutional Appears: Toxic, In Acute Distress, Older Than Stated Age - Head Exam Head Exam: ATRAUMATIC (q), NORMAL INSPECTION - Eye Exam Eye Exam: EOMI, Normal appearance. absent: Scleral icterus - ENT Exam ENT Exam: Mucous Membranes Moist - Neck Exam Additional comments: Large neck diameter - Respiratory Exam Respiratory Exam: Clear to Ausculation Bilateral, NORMAL BREATHING PATTERN. absent: Rales, Rhonchi, Wheezes - Cardiovascular Exam Cardiovascular Exam: RRR, +S1, +S2. absent: Murmur - GI/Abdominal Exam GI & Abdominal Exam: Soft, Normal Bowel Sounds. absent: Distended, Firm, Guarding, Tenderness - Extremities Exam Extremities Exam: Joint Swelling. absent: Calf Tenderness Additional comments: Left arm in splint - Back Exam Back Exam: CVA tenderness (L) - Neurological Exam Neurological Exam: Alert, Awake, Oriented x3 Neuro motor strength exam: Left Upper Extremity: 5, Right Upper Extremity: 5, Left Lower Extremity: 5, Right Lower Extremity: 5 - Psychiatric Exam Psychiatric exam: Anxious - Skin Skin Exam: Normal Color Assessment and Plan - Assessment and Plan (Free Text) Assessment: 58yo female with a PMH of pyelonephritis (december 2017), gastritis and schizophrenia admitted for pyelonephritis and to rule out sepsis. Pt is s/p fall resulting in comminuted fracture of Left ulna. Plan: Pyelonephritis -Miropenem IV 1gm Q8hr starter 03/16/2018 -Vancomycin IV 1gm IV Q12hr 03/15/2018 -Dr Woo (ID) consulted -CT Abdomen and Pelvis: Acute Left Pyelonephritis -Ultrasound Abdomen: positive Fatty Liver, No signs of cholecystitis, stones, duct dilation -IVF NS 100mls/hr -Vitals: Tmax 1002.8 BP 166/81 HR 101 -WBC 23/7, L shift -Pro Calcitonin 19.1 -Blood cultures: Preliminary, no growth 24hrs Humeral, ulna, radial fractures -Dr. Garza- recommendations appreciated, surgery postponed until r/o sepsis. -EKG- pending read -INR-1.2; PT-15.1; aPTT-41 -03/15/18 CXR- no active disease -03/15/[address]- multiple comminuted and distracted fractures at the proximal portion of the left radial and ulnar bones; large displaced bony fragment form the proximal left ulna which includes coronoid process and portion of the left ulnar shaft; mild posterior dislocation at the radio humeral joint; acute comminuted displaced fracture at the lateral aspect of the left capitellum -03/15/18 Humerus Xray- no humeral fracture appreciated -03/15/18 Forearm Xray- Comminuted displaced intra-articular proximal ulnar fracture -03/15/18 Elbow Xray- Comminuted mildly displaced longitudinal/oblique fracture of the proximal radius, with possible intra-articular extension -Morphine 2mg IV q4sch prn for pain S/P mechanical fall -03/15/[address] w/o contrast- no evidence of acute intracranial hemorrhage or evidence of skull fracture -Noted humeral, ulna, and radial fractures above. Glucose Intolerance -HgbA1c 5.7 -Lipid panel LDL,95 HDL,25 -TSH 0.31 and Free T4 0.97 -Monitor Accuchecks QAC and HS Transaminitis -Hepatitis panel Negative -abdominal US: fatty liver -f/u with outpt GI History of Schizophrenia -Psych consult- Dr. Lizarraga recommendations: Schizophrenia -Atarax 25mg Q6 PRN -Seroquel 100mg PO HS -Continue to monitor Hyperkalemia resolved Prophylaxis heparin 5000 units subq for DVT prophylaxis; Pepcid 20mg po bid for gi ppx Florastor 250mg po bid PT/OT eval pending Fall Precautions NS 100cc/hr
[2018-03-16 08:23] LABS: BASO % 0.2 % (0.0-2.0); EOS % 0.1 % (0.0-4.0); HEMOGLOBIN 12.5 g/dL (11.0-16.0); INR 1.4; LYMPH # 1.3 K/uL (1.0-4.3); LYMPH % 5.4 % (20.0-40.0); MEAN CORPUSCULAR HGB CONC 34.6 g/dL (33.0-37.0); MEAN PLATELET VOLUME 8.1 fL (7.2-11.7); MONO # 1.3 K/uL (0.0-0.8); MONO % 5.3 % (0.0-10.0); NEUT # 21.1 K/uL (1.8-7.0); PLATELET COUNT 309 K/uL (130-400); PROTHROMBIN TIME 15.1 SECONDS (9.7-12.2); RED CELL DISTRIBUTION WIDTH 15.6 % (11.5-14.5); WHITE BLOOD COUNT 23.7 K/uL (4.8-10.8)
[2018-03-16 08:27] LABS: BLOOD UREA NITROGEN 8 mg/dL (7-17); CALCIUM 8.1 mg/dl (8.6-10.4); GFR AFRICAN-AMERICAN > 60; GFR NON-AFRICAN AMERICAN > 60; HDL CHOLESTEROL 25 mg/dL (30-70)
[2018-03-16 08:39] LABS: LDL CHOLESTEROL 92 mg/dL (0-129)
[2018-03-16 09:07] LABS: HEPATITIS B SURFACE AG Negative (NEGATIVE)
[2018-03-16 09:13] LABS: HEPATITIS A IGM NEGATIVE (NEGATIVE); HEPATITIS B CORE AB NEGATIVE (NEGATIVE)
[2018-03-16 09:23] LABS: BASOPHIL 1 % (0-2); LYMPHOCYTE 5 % (20-40); MONOCYTE 5 % (0-10); NEUTROPHIL 89 % (50-75); PLATELET ESTIMATE NORMAL (NORMAL); TOTAL CELLS COUNTED 100
[2018-03-16 09:24] LABS: HEPATITIS C ANTIBODY NEGATIVE (NEGATIVE)
--- NOTE | 2018-03-16 10:00 | RAD ---
Date of service: 03/15/2018 HISTORY: Leukocytosis, check for kidney stone COMPARISON: No prior. FINDINGS: BOWEL: There is a nonobstructive bowel gas pattern appreciated. Relatively prominent fecal loading seen the right hemicolon, mild otherwise. No gross intra peritoneal gas identified. No suspicious calcifications seen overlying the bilateral renal fossa regions. A few phleboliths identified inferior pelvis soft tissues compared prior abdomen and pelvis CT 12/29/2017. Two small ring-like surgical clips or calcifications are unchanged in the lower pelvis as well. BONES: No fracture or destructive bony lesion grossly evident. OTHER FINDINGS: None. IMPRESSION: No definite interval abnormal intra-abdominal calcifications identified, particularly overlying the region of the bilateral renal silhouettes. Infrequent inferior pelvic soft tissue calcifications are stable, likely unrelated to urinary bladder or distal bilateral ureters, as discussed above.
--- NOTE | 2018-03-16 10:06 | US ---
Date of service: 03/16/2018 HISTORY: transaminitis COMPARISON: None. TECHNIQUE: Sonographic evaluation of the abdomen. FINDINGS: LIVER: Measures 17.9 cm. Diffusely increased echogenicity of the liver parenchyma. Consistent with fatty infiltration. No mass. Smooth contour. No biliary dilatation. GALLBLADDER: Unremarkable. No gallstones. COMMON BILE DUCT: Measures 3 mm. No stones. No dilatation. PANCREAS: Unremarkable as visualized. No mass. No ductal dilatation. RIGHT KIDNEY: Measures 12.8cm. Normal echogenicity. No calculus, mass, or hydronephrosis. LEFT KIDNEY: Measures 11.9cm. Normal echogenicity. No calculus, mass, or hydronephrosis. SPLEEN: Normal in size and contour. No mass. AORTA: No aneurysmal dilatation. IVC: Unremarkable. OTHER FINDINGS: None. IMPRESSION: Fatty liver. No evidence of cholelithiasis or cholecystitis. No evidence of biliary obstruction. No additional abnormality.
[2018-03-16] MEDS: Saccharomyces Boulardi 250 mg Cap PO SCH ×2 (10:22→18:11)
[2018-03-16 10:23] LABS: ALBUMIN 3.7 g/dL (3.5-5.0); ALT/SGPT 54 U/L (9-52); AST/SGOT 58 U/L (14-36)
[2018-03-16] MEDS: Vancomycin 1 gm/NS 200 ml 1 GM/200 ML BAG IVPB SCH ×2 (10:27→22:32)
[2018-03-16] MEDS ORDERED: Iodixanol 320 MG/ML 100 ML BOTTLE IV ONE ×2 (11:41→12:03)
--- NOTE | 2018-03-16 11:44 | PCM.PYCHPN ---
Psychiatric Progress Note - Psychiatric Progress Note Patient seen today, length of contact: 15 minutes Patient Chief Complaint: My left arm hurts Problems Identified/Issues Discussed: Patient seen and evaluated at bedside. Chart reviewed and case discussed with nursing staff. Patient is primarily American speaking. Patient states that she has a lot of pain in her left arm after she broke it. She states she doesn't feel anxious or depressed, however she appears very anxious about her pain. She states she has not been hearing voices or seeing any strange things, however she has had that happen in the past. She states she is unsure if she has ever been on Haldol or Risperdal since those medications don't sound familiar. She states she would like a pill to help her sleep since she has not been able to sleep well. Patient denies suicidal or homicidal thoughts. Medication Change: Yes Medical Record Reviewed: Yes Mental Status Examination - Cognitive Function Orientation: Person, Place, Situation, Time Memory: Intact Attention: Poor Concentration: Poor Association: WNL Fund of Knowledge: Poor - Mood Mood: Anxious - Affect Affect: Constricted - Speech Speech: Appropriate - Formal Thought Process Formal Thought Process: Perservation (patient kept talking about her pain, and stated she wanted the orange pill) - Suicidal Ideation Suicidal Ideation: No - Homicidal Ideation Homicidal Ideation: No Goal/Treatment Plan - Goal/Treatment Plan Need for Continued Stay: Severe depression anxiety Progress Toward Problem(s) and Goals/Treatment Plan: Schizophrenia Geodon 20mg PO BID Atarax 25mg Q6 PRN Seroquel 100mg PO HS Continue to monitor Case discussed with Dr. Zia Robertson, PGY1
--- NOTE | 2018-03-16 12:53 | CT ---
Date of service: 03/16/2018 PROCEDURE: CT Chest, Abdomen and Pelvis with intravenous contrast HISTORY: fever, leukocytosis, prior hx of pyelonephritis COMPARISON: 12/29/2017 TECHNIQUE: IV dose administered: 100 mL Visipaque 320 Radiation dose: Total exam DLP = 1802.16 mGy-cm. This CT exam was performed using one or more of the following dose reduction techniques: Automated exposure control, adjustment of the mA and/or kV according to patient size, and/or use of iterative reconstruction technique. FINDINGS: CT CHEST WITH CONTRAST: LUNGS: No pulmonary infiltrate. 5 mm nodule within or abutting the anterior aspect of the minor fissure, possibly intrapulmonary lymph node. No followup required. No other pulmonary mass identified. Minimal dependent atelectasis left lower lobe, posteriorly. MEDIASTINUM: Unremarkable. Normal caliber aorta and pulmonary arterial trunk. No aortic dissection. Normal size heart. LYMPH NODES: Unremarkable. PLEURA: Unremarkable. No pneumothorax. No pleural fluid. BONES: Unremarkable. OTHER FINDINGS: None. CT ABDOMEN AND PELVIS: LIVER: Unremarkable. No gross lesion or ductal dilatation. GALLBLADDER AND BILE DUCTS: Unremarkable. PANCREAS: Unremarkable. No gross lesion or ductal dilatation. SPLEEN: Unremarkable. ADRENALS: Unremarkable. No mass. KIDNEYS AND URETERS: Large wedge-shaped area of decreased attenuation/ enhancement in the upper pole left kidney consistent with pyelonephritis. Mild left perinephric stranding, nonspecific. No mass. No hydronephrosis. Unremarkable right kidney. No renal calculus. VASCULATURE: Unremarkable. No aortic aneurysm. BOWEL: Unremarkable. No obstruction. No gross mural thickening. APPENDIX: Normal appendix. PERITONEUM: Unremarkable. No free fluid. No free air. LYMPH NODES: Unremarkable. No enlarged lymph nodes. BLADDER: Unremarkable. REPRODUCTIVE: Status post hysterectomy BONES: No acute fracture. OTHER FINDINGS: None. IMPRESSION: Acute left pyelonephritis. No evidence of abscess. No urinary tract obstruction. Unremarkable right kidney. Additional minor findings as above.
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
--- NOTE | 2018-03-16 13:27 | CP.PCM.PN ---
Subjective - Date & Time of Evaluation Date of Evaluation: 03/16/18 Time of Evaluation: 13:25 - Subjective Subjective: Orthopedic f/u Dr. Garza Patient complaining of pain in her elbow. She says her fingers are sleeping, but says they are all the same. Objective - Vital Signs/Intake and Output Vital Signs (last 24 hours): Temp Pulse Resp BP Pulse Ox 102.3 F H 115 H 20 127/61 95 03/16/18 10:22 03/16/18 07:00 03/16/18 07:00 03/16/18 07:00 03/16/18 07:00 Intake and Output: 03/16/18 03/16/18 06:59 18:59 Intake Total 2400 Output Total 3500 Balance -1100 - Medications Medications: Current Medications Famotidine (Pepcid) 20 mg PO BID [facility] Last Admin: 03/16/18 10:25 Dose: 20 mg Hydroxyzine HCl (Atarax) 25 mg PO Q6 PRN PRN Reason: Anxiety Vancomycin/Sodium Chloride (Vancomycin 1 Gm/Ns 200 Ml) 1 gm in 200 mls @ 133 mls/hr IVPB Q12H [facility] PRN Reason: Protocol Stop: 03/21/18 10:01 Last Admin: 03/16/18 10:27 Dose: 133 mls/hr Sodium Chloride (Sodium Chloride 0.9%) 1,000 mls @ 100 mls/hr IV .Q10H [facility] Last Admin: 03/16/18 08:24 Dose: Not Given Meropenem 1 gm/ Sodium (Chloride) 100 mls @ 100 mls/hr IVPB Q8H [facility] PRN Reason: Protocol Morphine Sulfate (Morphine) 2 mg IVP Q4 PRN PRN Reason: Pain, severe (8-10) Last Admin: 03/16/18 11:31 Dose: 2 mg Pneumococcal Polyvalent Vaccine (Pneumovax 23 Vaccine) 0.5 ml IM .ONCE ONE Stop: 03/17/18 10:01 Quetiapine Fumarate (Seroquel) 100 mg PO [facility] Last Admin: 03/15/18 21:10 Dose: 100 mg Saccharomyces Boulardii (Florastor) 250 mg PO BID [facility] Last Admin: 03/16/18 10:22 Dose: 250 mg - Labs Labs: 03/16/18 07:56 03/16/18 07:56 PT 15.1 SECONDS (9.7-12.2) H 03/16/18 07:56 INR 1.4 03/16/18 07:56 APTT 41 SECONDS (21-34) H 03/15/18 10:35 - Extremities Exam Additional comments: patient c/o pain, but has full ROM flex/ext fingers/thumb/wrist. Admits to decreased sensation, but says it is equally numb over all fingers med/rad/ulnar nerve distrib. Sling adjusted as fingers dependent position, encouraged elevation Assessment and Plan (1) Displaced fracture of head of left radius Assessment & Plan: Does not appear to have any specific NV deficit, will monitor, likely due to swelling to forearm and hand, elevated surgery planned for Thursday 03/22 pending clearance pt wtih acute pyelonephritis per CT, no implants until infection completely resolved d/w DR. Garza, agrees wtih above elevate sling splint ice Status: Acute (2) Closed fracture of capitellum of left humerus Status: Acute (3) Fracture of left proximal ulna Status: Acute Radiology Interpretation - Radiology Interpretation #2 Interpretation: tient Name / ID : HALLIE Keenan / [id number] Exam Date : 03/15/2018 10:43:06 ( Approved ) Study Comment : Sex / Age : F / 58Y Creator : Elsie Child MD Dictator : Elsie Child MD Procurement Specialist : Dead Mail Checker : Elsie Child MD Approver2 : Report Date : 03/15/2018 11:22:39 My Comment : Date of service: 03/15/2018 PROCEDURE: CT of the left elbow without contrast HISTORY: TRAUMA COMPARISON: Comparison is made with the previous x-ray of the left forearm and left elbow done on same-day TECHNIQUE: Axial and reformatted coronal and sagittal CT images of the left elbow were obtained without IV contrast administration. 3D reformatted images of the left elbow were also obtained. Total exam DLP: 139.3 FINDINGS: There is a comminuted displaced fracture at the proximal portion of the left ulnar bone associated with displaced of large bony fragment which includes the coronoid process and portion of the proximal ulnar shaft. The fracture extending from the trochlear notch at the base of the coronoid process to the proximal portion of the ulnar shaft. There are also comminuted complex fractures at the coronoid process. There is comminuted displaced fracture at the proximal head of the radius bone. There is acute comminuted displaced fracture at the medial aspect of the radius head at the radioulnar articulation. There is no evidence of dislocation at the ulnohumeral joint. There is mild dislocation of the left radius head relative to the capitellum noted. There is a comminuted displaced destructive fracture at the lateral aspect of the humeral capitellum associated with displacement of 2 bony fragments. There are multiple displaced bony fragments seen around the proximal radial and ulnar including multiple fragments inside the elbow joint. There is a small to moderate left elbow joint effusion. There are adjacent subcutaneous stranding and soft tissue edema around the left elbow. IMPRESSION: Multiple comminuted and distracted fractures at the proximal portion of the left radial and ulnar bones as described above. Large displaced bony fragment from the proximal left ulna which includes coronoid process and portion of the left ulnar shaft. Mild posterior dislocation at the radio humeral joint. Acute comminuted displaced fracture at the lateral aspect of the left capitellum.
[2018-03-16 13:48] LABS: VENOUS BLOOD GAS BASE EXCESS -4.4 mmol/L (0.0-2.0); VENOUS BLOOD GAS PCO2 35 mmHg (40-60); VENOUS BLOOD GAS PO2 52 mm/Hg (30-55); VENOUS BLOOD PH 7.37 (7.32-7.43)
[2018-03-16] MEDS: Meropenem 1 GM in Sodium Chloride 0.9% 100 ML IVPB SCH ×2 (14:27→20:30)
[2018-03-16 15:00] LABS: BLOOD UREA NITROGEN 9 mg/dL (7-17); GFR AFRICAN-AMERICAN > 60; GFR NON-AFRICAN AMERICAN > 60
[2018-03-16 15:01] LABS: ALB/GLOB RATIO 0.9 (1.0-2.1); ALBUMIN 3.5 g/dL (3.5-5.0); ALT/SGPT 47 U/L (9-52); AST/SGOT 36 U/L (14-36); CALCIUM 8.1 mg/dl (8.6-10.4)
--- NOTE | 2018-03-17 01:05 | CON ---
Copied To: Alli Woo MD Attending MD: Alli Woo MD DATE: 03/16/2018 INFECTIOUS DISEASE CONSULT REQUESTED BY: Kallie Hernandez DO HISTORY OF PRESENT ILLNESS: This patient is a 58-year-old female. 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 She has a sling on. I am asked to evaluate her because her white count is 27,000. She was recently here in 12/2017 for pyelonephritis. She was treated by Dr. Mcclure as well as Dr. Corona at that time, and she was told to complete the antibiotic. She says she completed the course at home, and she says that she never improved. She has continued to have some chills and back pain, and she is here now. She also gives me history of having diarrhea. She says she goes four times and is black in color. It is loose. She gave a different story to the resident. PAST MEDICAL HISTORY: Significant for gastritis, pyelonephritis, history of schizophrenia. She follows in the clinic downstairs. PAST SURGICAL HISTORY: She has surgical history of hysterectomy for fibroids in 2005 in [facility]. I took the help of a rackman to speak to her as she only speaks Tristanian. MEDICATIONS: She takes lisinopril and sertraline, and I looked up on the previous chart that she did have E. coli infection, and she was sent home on Cipro medication. She was started on vancomycin and Rocephin because she has a white count of 27,000. ALLERGIES: SHE IS NOT ALLERGIC TO ANY MEDICINE. SOCIAL HISTORY: Negative for smoking or drinking or any drug abuse. She lives at home with her mom, dad, and three brothers. REVIEW OF SYSTEMS: She is having fever right now. Did complain of chills. Denies any eye problems. Denies any chest pain. No shortness of breath. She has a fracture of the left forearm at this time. Denies any cough or dyspnea. Denies abdominal pain right now, but he does say she has flank pain on the left side. Denies any constipation or diarrhea. Denies any dysuria but was having back pain. She has limited range of motion in the left arm. She had 10/10 pain when she came in. She has anxiety psych wyman. Neurologically, she has no problems with the gait. She has a history of hypertension and tuberculosis. Neurologic, no seizures. No kidney disease. No endocrine problems. No HIV disease. No skin problems in the past. She does have a history of schizophrenia according to the chart and history of surgeries including hysterectomy and she is not allergic to any medicine. PHYSICAL EXAMINATION: VITAL SIGNS: She is having high fever right now. She has 102.8 and 102.3. She was going downstairs to get the CAT scan done. Heart rate is 115, blood pressure 127/61, respirations are 20. GENERAL: She is awake and alert. Able to give a history. She is obese but in no acute respiratory distress. HEENT: Head is atraumatic. Normocephalic. Eye movements are unremarkable. Tongue is moist. NECK: Supple. JVP is flat. LUNGS: Clear. No crackles or rales present. HEART: S1 and S2 are regular. ABDOMEN: Soft. Flabby. No guarding. No rigidity present. Left CVA tenderness more than right. EXTREMITIES: Have no edema. Normal color. Left arm, she has a sling and she has it wrapped with Herber bandage. LABORATORY DATA: White count is 27.3, hemoglobin 12.5, hematocrit 36.5, platelet count is 325,000. Sodium is 134, potassium 5.3, chloride 100, CO2 is 22, BUN is 17, creatinine 0.9. AST is 59, ALT is 55, alk phos is 172, so her liver enzymes are elevated. We need to make sure she does not have anything going on in the gallbladder. She is going for the CAT scan anyway, and she did give me history of diarrhea. PTT is also 41. INR is 1.2. She had an upper extremity CAT scan, which shows multiple comminuted and dissected fractures of the proximal portion of left radial and ulnar bones as described above. Large displaced bony fragment from the proximal left ulna which includes the coronoid process and portion of the left ulnar shaft. Mild posterior dislocation of the radioulnar joint. Acute comminuted displaced fracture at the lateral aspect of the left capitellum. While I am dictating, her ultrasound and chest CT are all available; ultrasound complete shows fatty liver, no evidence of cholelithiasis or cholecystitis, no evidence of biliary obstruction, no abnormality noted. She has an abdomen and pelvic CT done, which shows acute left pyelonephritis. No evidence of abscess. No urinary tract obstruction. Unremarkable right kidney. Additional minor findings as above. Lungs showed a 5-mm nodule, possible intrapulmonary lymph node. No followup required. No other pulmonary mass identified. Minimal dependent atelectasis, left lower lobe posteriorly. Kidney shows a large wedge-shaped area of decreased attenuation in the upper pole of left kidney consistent with pyelonephritis. Mild left perinephric stranding. No hydronephrosis. Unremarkable right kidney, no renal calculus. So, she does have a left pyelonephritis with a very high white count with significant procalcitonin level. We will see her lactic acid level. She had a viral hepatitis test, which are negative. Urine shows leukocytes 3+, wbc's 28, rbc's 7. We are looking for the urine culture as well as blood culture. I have also added stool for C. diff as she does have diarrhea. This is a patient who comes in with fall with left arm comminuted fracture and now has high white count also and left pyelonephritis and UTI. We will follow. We will also need urologist to follow as this has been continuing from 12/2017 and may need something definitive to be done and continue vancomycin and meropenem at this time to cover. Alli Woo MD
[2018-03-17] MEDS: Meropenem 1 GM in Sodium Chloride 0.9% 100 ML IVPB SCH ×3 (04:00→21:00)
[2018-03-17] MEDS: Sodium Chloride 0.9% 1,000 ML IV SCH (05:01)
--- NOTE | 2018-03-17 06:31 | CP.PCM.PN ---
Subjective - Date & Time of Evaluation Date of Evaluation: 03/17/18 Time of Evaluation: 06:31 - Subjective Subjective: Medicine Note for Hospitalist Service pt seen and examined at bedside, pt complains of night sweats, body aches, ongoing fevers, dizziness,headaches and left elbow pain. Pt denies chest pain, SOB, vomitting, diarrhea. Objective - Vital Signs/Intake and Output Vital Signs (last 24 hours): Temp Pulse Resp BP Pulse Ox 100.8 F H 111 H 20 141/84 95 03/17/18 04:59 03/17/18 04:10 03/17/18 04:10 03/17/18 04:10 03/17/18 04:10 Intake and Output: 03/16/18 03/17/18 18:59 06:59 Intake Total 2000 Output Total 600 Balance 1400 - Medications Medications: Current Medications Acetaminophen (Tylenol 325mg Tab) 650 mg PO Q6 PRN PRN Reason: Fever >100.4 F Last Admin: 03/17/18 04:59 Dose: 650 mg Famotidine (Pepcid) 20 mg PO BID [facility] Last Admin: 03/16/18 18:11 Dose: 20 mg Hydroxyzine HCl (Atarax) 25 mg PO Q6 PRN PRN Reason: Anxiety Last Admin: 03/16/18 22:35 Dose: 25 mg Vancomycin/Sodium Chloride (Vancomycin 1 Gm/Ns 200 Ml) 1 gm in 200 mls @ 133 mls/hr IVPB Q12H [facility] PRN Reason: Protocol Stop: 03/21/18 10:01 Last Admin: 03/16/18 22:32 Dose: 133 mls/hr Sodium Chloride (Sodium Chloride 0.9%) 1,000 mls @ 100 mls/hr IV .Q10H [facility] Last Admin: 03/17/18 05:01 Dose: 100 mls/hr Meropenem 1 gm/ Sodium (Chloride) 100 mls @ 100 mls/hr IVPB Q8H [facility] PRN Reason: Protocol Last Admin: 03/17/18 04:00 Dose: 100 mls/hr Morphine Sulfate (Morphine) 2 mg IVP Q4 PRN PRN Reason: Pain, severe (8-10) Last Admin: 03/16/18 22:41 Dose: 2 mg Quetiapine Fumarate (Seroquel) 100 mg PO HS [facility] Last Admin: 03/16/18 22:34 Dose: 100 mg Saccharomyces Boulardii (Florastor) 250 mg PO BID [facility] Last Admin: 03/16/18 18:11 Dose: 250 mg Ziprasidone (Geodon Cap) 20 mg PO BID [facility] Last Admin: 03/16/18 18:11 Dose: 20 mg - Labs Labs: 03/16/18 07:56 03/16/18 13:53 PT 15.1 SECONDS (9.7-12.2) H 03/16/18 07:56 INR 1.4 03/16/18 07:56 APTT 41 SECONDS (21-34) H 03/15/18 10:35 - Constitutional Appears: Toxic, In Acute Distress - Head Exam Head Exam: ATRAUMATIC, NORMAL INSPECTION - Eye Exam Eye Exam: EOMI, Normal appearance - ENT Exam ENT Exam: Mucous Membranes Moist - Neck Exam Additional comments: large neack diameter - Respiratory Exam Respiratory Exam: Clear to Ausculation Bilateral, NORMAL BREATHING PATTERN. absent: Chest Wall Tenderness, Rales, Rhonchi, Wheezes - Cardiovascular Exam Cardiovascular Exam: Tachycardia, +S1, +S2 - GI/Abdominal Exam GI & Abdominal Exam: Soft, Normal Bowel Sounds. absent: Distended, Tenderness Additional comments: obese - Extremities Exam Extremities Exam: Joint Swelling (L elbow), Tenderness (L elbow). absent: Calf Tenderness, Pedal Edema - Back Exam Back Exam: CVA tenderness (L) - Neurological Exam Neurological Exam: Alert, Awake, Oriented x3 - Psychiatric Exam Psychiatric exam: Anxious - Skin Skin Exam: Diaphoretic, Normal Color, Warm Assessment and Plan - Assessment and Plan (Free Text) Assessment: 58yo female with a PMH of pyelonephritis (december 2017), gastritis and schizophrenia admitted for pyelonephritis and to rule out sepsis. Pt is s/p fall resulting in comminuted fracture of Left ulna. Plan: Pyelonephritis -Miropenem IV 1gm Q8hr starter 03/16/2018 -Vancomycin IV 1gm IV Q12hr 03/15/2018 -gentamycin IV 80mg q8hrs -Dr Woo (ID) consulted: will f/u -CT Abdomen and Pelvis: Acute Left Pyelonephritis -Ultrasound Abdomen: positive Fatty Liver, No signs of cholecystitis, stones, duct dilation -IVF NS 100mls/hr -Vitals: Tmax 1002.8, Today 100.2 BP 177/81 HR 101 -WBC 17.3, L shift -Pro Calcitonin 19.1 -Blood cultures: Preliminary, no growth 48hrs -repeat blood cultures ordered Humeral, ulna, radial fractures -Dr. Garza- recommendations appreciated, surgery postponed until r/o sepsis. -EKG- pending read -INR-1.2; PT-15.1; aPTT-41 -03/15/18 CXR- no active disease -03/15/[address]- multiple comminuted and distracted fractures at the proximal portion of the left radial and ulnar bones; large displaced bony fragment form the proximal left ulna which includes coronoid process and portion of the left ulnar shaft; mild posterior dislocation at the radio humeral joint; acute comminuted displaced fracture at the lateral aspect of the left capitellum -03/15/18 Humerus Xray- no humeral fracture appreciated -03/15/18 Forearm Xray- Comminuted displaced intra-articular proximal ulnar fracture -03/15/18 Elbow Xray- Comminuted mildly displaced longitudinal/oblique fracture of the proximal radius, with possible intra-articular extension -Morphine 2mg IV q4sch prn for pain S/P mechanical fall -03/15/[address] w/o contrast- no evidence of acute intracranial hemorrhage or evidence of skull fracture -Noted humeral, ulna, and radial fractures above. Glucose Intolerance -HgbA1c 5.7 -Lipid panel LDL,95 HDL,25 -TSH 0.31 and Free T4 0.97 -Monitor Accuchecks QAC and HS Transaminitis -Hepatitis panel Negative -abdominal US: fatty liver -f/u with outpt GI History of Schizophrenia -Psych consult- Dr. Lizarraga recommendations: Schizophrenia -Atarax 25mg Q6 PRN -Seroquel 100mg PO HS -Continue to monitor Hyperkalemia resolved Prophylaxis heparin 5000 units subq for DVT prophylaxis; Pepcid 20mg po bid for gi ppx Florastor 250mg po bid PT/OT eval pending Fall Precautions NS 100cc/hr
[2018-03-17 08:22] LABS: BASO # 0.1 K/uL (0.0-0.2); BASO % 0.3 % (0.0-2.0); EOS # 0.1 K/uL (0.0-0.7); EOS % 0.7 % (0.0-4.0); HEMOGLOBIN 11.9 g/dL (11.0-16.0); LYMPH # 1.7 K/uL (1.0-4.3); LYMPH % 9.8 % (20.0-40.0); MEAN CELL VOLUME 84.4 fL (81.0-99.0); MEAN CORPUSCULAR HEMOGLOBIN 28.7 pg (27.0-31.0); MEAN PLATELET VOLUME 8.2 fL (7.2-11.7); MONO # 1.1 K/uL (0.0-0.8); MONO % 6.3 % (0.0-10.0); NEUT # 14.3 K/uL (1.8-7.0); NEUT % 82.9 % (50.0-75.0); PLATELET COUNT 265 K/uL (130-400); RBC 4.13 Mil/uL (3.80-5.20); RED CELL DISTRIBUTION WIDTH 15.6 % (11.5-14.5); WHITE BLOOD COUNT 17.3 K/uL (4.8-10.8)
[2018-03-17 08:31] LABS: ALBUMIN 3.3 g/dL (3.5-5.0); ALT/SGPT 42 U/L (9-52); AST/SGOT 35 U/L (14-36); BLOOD UREA NITROGEN 8 mg/dL (7-17); CALCIUM 8.3 mg/dl (8.6-10.4); GFR AFRICAN-AMERICAN > 60; GFR NON-AFRICAN AMERICAN > 60
[2018-03-17 09:33] LABS: EOSINOPHIL 1 % (0-4); HYPOCHROMIC SLIGHT; LYMPHOCYTE 8 % (20-40); MONOCYTE 5 % (0-10); NEUTROPHIL 86 % (50-75); PLATELET ESTIMATE NORMAL (NORMAL); TOTAL CELLS COUNTED 100
[2018-03-17 09:34] LABS: TOXIC GRANULATION PRESENT
[2018-03-17] MEDS ORDERED: Pneumococcal 23-Valent Vaccine IM ONE (10:00)
[2018-03-17] MEDS: Saccharomyces Boulardi 250 mg Cap PO SCH ×2 (10:02→18:17)
[2018-03-17] MEDS: Vancomycin 1 gm/NS 200 ml 1 GM/200 ML BAG IVPB SCH (10:02)
[2018-03-17 11:28] LABS: VENOUS BLOOD GAS BASE EXCESS -6.1 mmol/L (0.0-2.0); VENOUS BLOOD GAS PCO2 35 mmHg (40-60); VENOUS BLOOD GAS PO2 48 mm/Hg (30-55); VENOUS BLOOD PH 7.34 (7.32-7.43)
--- NOTE | 2018-03-17 17:35 | CP.PCM.PN ---
Subjective - Date & Time of Evaluation Date of Evaluation: 03/17/18 Time of Evaluation: 03:45 - Subjective Subjective: dictated Objective - Vital Signs/Intake and Output Vital Signs (last 24 hours): Temp Pulse Resp BP Pulse Ox 100.2 F H 112 H 20 177/94 H 96 03/17/18 15:13 03/17/18 15:13 03/17/18 15:13 03/17/18 15:13 03/17/18 15:13 Intake and Output: 03/17/18 03/17/18 06:59 18:59 Intake Total 2000 1000 Output Total 600 Balance 1400 1000 - Medications Medications: Current Medications Acetaminophen (Tylenol 325mg Tab) 650 mg PO Q6 PRN PRN Reason: Fever >100.4 F Last Admin: 03/17/18 14:59 Dose: 650 mg Famotidine (Pepcid) 20 mg PO BID [facility] Last Admin: 03/17/18 10:02 Dose: 20 mg Hydroxyzine HCl (Atarax) 25 mg PO Q6 PRN PRN Reason: Anxiety Last Admin: 03/16/18 22:35 Dose: 25 mg Vancomycin/Sodium Chloride (Vancomycin 1 Gm/Ns 200 Ml) 1 gm in 200 mls @ 133 mls/hr IVPB Q12H [facility] PRN Reason: Protocol Stop: 03/21/18 10:01 Last Admin: 03/17/18 10:02 Dose: 133 mls/hr Sodium Chloride (Sodium Chloride 0.9%) 1,000 mls @ 100 mls/hr IV .Q10H [facility] Last Admin: 03/17/18 05:01 Dose: 100 mls/hr Meropenem 1 gm/ Sodium (Chloride) 100 mls @ 100 mls/hr IVPB Q8H [facility] PRN Reason: Protocol Last Admin: 03/17/18 14:27 Dose: 100 mls/hr Morphine Sulfate (Morphine) 2 mg IVP Q4 PRN PRN Reason: Pain, severe (8-10) Last Admin: 03/17/18 10:17 Dose: 2 mg Quetiapine Fumarate (Seroquel) 100 mg PO HS [facility] Last Admin: 03/16/18 22:34 Dose: 100 mg Saccharomyces Boulardii (Florastor) 250 mg PO BID [facility] Last Admin: 03/17/18 10:02 Dose: 250 mg Ziprasidone (Geodon Cap) 20 mg PO BID [facility] Last Admin: 03/17/18 10:02 Dose: 20 mg - Labs Labs: 03/17/18 08:07 03/17/18 08:07 PT 15.1 SECONDS (9.7-12.2) H 03/16/18 07:56 INR 1.4 03/16/18 07:56 APTT 41 SECONDS (21-34) H 03/15/18 10:35
[2018-03-17] MEDS ORDERED: Gentamicin 80 mg/2mL Inj. IVPB SCH (17:45)
--- NOTE | 2018-03-17 21:30 | CARD ---
APPROVED REPORT Date of service: 03/15/2018 EKG Measurement Heart [id number] <Conclusion> Sinus tachycardia Otherwise normal ECG
--- NOTE | 2018-03-17 21:31 | CARD ---
APPROVED REPORT Date of service: 03/15/2018 EKG Measurement Heart [id number] <Conclusion> Normal sinus rhythm Prolonged QT Abnormal ECG
--- NOTE | 2018-03-17 21:31 | CARD ---
APPROVED REPORT Date of service: 03/15/2018 EKG Measurement Heart [id number] <Conclusion> Normal sinus rhythm Prolonged QT Abnormal ECG
--- NOTE | 2018-03-17 23:22 | PN ---
Copied To: Alli Woo MD Attending MD: Alli Woo MD DATE: 03/17/2018 SUBJECTIVE: Patient is awake, alert. She denies any dysuria but she was febrile. She was placed on cooling blanket last night. She did have a T-max of 102.1 and now 100.2. She is asking for water and she is sweating a lot. She remains tachycardic, and the attending told me that she placed a cooling blanket last night. She also has pain in her elbow and since she has a fracture she has an Herber bandage there. PHYSICAL EXAMINATION: VITAL SIGNS: With a temp of 102.3, heart rate of 115, blood pressure 127/61, respirations are 20. HEENT: Head is atraumatic. NECK: Supple. LUNGS: Clear. HEART: S1 and S2 are regular. ABDOMEN: Flabby, nontender. EXTREMITIES: Have no edema, but she has severe neuropathy in the legs and she has the left hand, which is in the Herber bandage. LABORATORY DATA: White count is still 17.3 and hemoglobin is 11.9. Her creatinine is 0.7 and BUN is 8. Micro wyman, her cultures came. Blood cultures are negative. Urine culture has E. coli, which is ESBL positive, which is Cipro sensitive, meropenem sensitive, and sensitive to gentamicin. She had a CAT scan of the abdomen and pelvis that showed acute left pyelonephritis. No evidence of abscess. No UTI or obstruction. Unremarkable right kidney. ASSESSMENT AND PLAN: So, at this time, since she is febrile in spite of being on antibiotics, I am going to readjust the antibiotics. She does have left pyelonephritis. She has fracture of her left forearm and remains with a high white count and is still febrile. So, we will see if her white count gets better and urine culture improves, then probably she can get the hands fixed. Alli Woo MD
[2018-03-18] MEDS: Sodium Chloride 0.9% 1,000 ML IV SCH ×3 (00:59→21:07)
[2018-03-18] MEDS: Meropenem 1 GM in Sodium Chloride 0.9% 100 ML IVPB SCH ×3 (03:46→20:06)
[2018-03-18] MEDS: Saccharomyces Boulardi 250 mg Cap PO SCH ×2 (10:22→17:34)
[2018-03-18 11:22] LABS: BASO # 0.1 K/uL (0.0-0.2); BASO % 0.5 % (0.0-2.0); EOS # 0.4 K/uL (0.0-0.7); LYMPH # 1.7 K/uL (1.0-4.3); LYMPH % 15.2 % (20.0-40.0); MEAN CELL VOLUME 84.2 fL (81.0-99.0); MEAN CORPUSCULAR HEMOGLOBIN 28.9 pg (27.0-31.0); MEAN CORPUSCULAR HGB CONC 34.3 g/dL (33.0-37.0); MEAN PLATELET VOLUME 8.5 fL (7.2-11.7); MONO % 9.5 % (0.0-10.0); NEUT # 7.7 K/uL (1.8-7.0); NEUT % 70.8 % (50.0-75.0); RBC 4.15 Mil/uL (3.80-5.20); RED CELL DISTRIBUTION WIDTH 15.3 % (11.5-14.5); WHITE BLOOD COUNT 10.8 K/uL (4.8-10.8)
[2018-03-18 11:33] LABS: INR 1.2; PROTHROMBIN TIME 13.2 SECONDS (9.7-12.2)
[2018-03-18 11:40] LABS: ALBUMIN 3.6 g/dL (3.5-5.0); ALT/SGPT 66 U/L (9-52); AST/SGOT 57 U/L (14-36); BLOOD UREA NITROGEN 11 mg/dL (7-17); CALCIUM 8.7 mg/dl (8.6-10.4); GFR AFRICAN-AMERICAN > 60; GFR NON-AFRICAN AMERICAN > 60
[2018-03-18] MEDS ORDERED: Potassium Chloride 20 mEq ER Tab PO ONE (13:58)
--- NOTE | 2018-03-18 15:23 | PCM.PYCHPN ---
Psychiatric Progress Note - Psychiatric Progress Note Patient seen today, length of contact: 15 minutes Patient Chief Complaint: My left arm hurts Problems Identified/Issues Discussed: Patient seen and evaluated at bedside. Chart reviewed and case discussed with nursing staff. Patient is primarily Icelandic speaking. Patient states that she has a lot of pain in her left arm after she broke it. As per nurse, patient told her that she heard her sister's voice. She is very concerned about the pain in her left arm. She states she has not been hearing any strange things. She is asking for a pill to help her sleep. She denies feeling anxious or depressed, however she seems very anxious about her health and her left arm. She denies suicidal or homicidal thoughts. Medical Record Reviewed: Yes Mental Status Examination - Cognitive Function Orientation: Person, Place, Situation, Time Memory: Intact Attention: Poor Concentration: Poor Association: WNL Fund of Knowledge: Poor - Mood Mood: Anxious - Affect Affect: Constricted - Speech Speech: Appropriate - Formal Thought Process Formal Thought Process: Hallucinations (Auditory), Perservation (patient kept talking about her pain, and stated she wanted the orange pill) - Suicidal Ideation Suicidal Ideation: No - Homicidal Ideation Homicidal Ideation: No Goal/Treatment Plan - Goal/Treatment Plan Need for Continued Stay: Severe depression anxiety Progress Toward Problem(s) and Goals/Treatment Plan: Schizophrenia Geodon 20mg PO BID Atarax 25mg Q6 PRN Seroquel 100mg PO HS Continue to monitor Case discussed with Dr. Zia Robertson, PGY1
--- NOTE | 2018-03-18 19:57 | CP.PCM.PN ---
Subjective - Date & Time of Evaluation Date of Evaluation: 03/18/18 Time of Evaluation: 19:54 - Subjective Subjective: Pt seen and examined at bedside. Pt has no complaints overnight. Pt denies chets pain, SOB, fever, chills, sweating, leg pains, dizziness or LOC. Pt complains of "fever sores" that came up this morning. Pt states this is normal when she has fevers. Objective - Vital Signs/Intake and Output Vital Signs (last 24 hours): Temp Pulse Resp BP Pulse Ox 99.5 F 93 H 20 116/75 99 03/18/18 15:00 03/18/18 16:00 03/18/18 15:00 03/18/18 15:00 03/18/18 15:00 - Medications Medications: Current Medications Famotidine (Pepcid) 20 mg PO BID [facility] Last Admin: 03/18/18 17:34 Dose: 20 mg Hydroxyzine HCl (Atarax) 25 mg PO Q6 PRN PRN Reason: Anxiety Last Admin: 03/18/18 01:45 Dose: 25 mg Sodium Chloride (Sodium Chloride 0.9%) 1,000 mls @ 100 mls/hr IV .Q10H [facility] Last Admin: 03/18/18 10:15 Dose: Not Given Meropenem 1 gm/ Sodium (Chloride) 100 mls @ 100 mls/hr IVPB Q8H [facility] PRN Reason: Protocol Last Admin: 03/18/18 12:50 Dose: 100 mls/hr Gentamicin Sulfate 80 mg/ (Sodium Chloride) 102 mls @ 200 mls/hr IVPB Q8H [facility] Last Admin: 03/18/18 18:09 Dose: 200 mls/hr Morphine Sulfate (Morphine) 2 mg IVP Q4 PRN PRN Reason: Pain, severe (8-10) Last Admin: 03/18/18 00:59 Dose: 2 mg Quetiapine Fumarate (Seroquel) 100 mg PO HS [facility] Last Admin: 03/17/18 22:26 Dose: 100 mg Saccharomyces Boulardii (Florastor) 250 mg PO BID [facility] Last Admin: 03/18/18 17:34 Dose: 250 mg Ziprasidone (Geodon Cap) 20 mg PO BID [facility] Last Admin: 03/18/18 17:34 Dose: 20 mg - Labs Labs: 03/18/18 11:16 03/18/18 11:16 PT 13.2 SECONDS (9.7-12.2) H 03/18/18 11:16 INR 1.2 03/18/18 11:16 APTT 36 SECONDS (21-34) H 03/18/18 11:16 - Constitutional Appears: Well, Non-toxic Assessment and Plan - Assessment and Plan (Free Text) Assessment: 58yo female with a PMH of pyelonephritis (december 2017), gastritis and schizophrenia admitted for pyelonephritis and to rule out sepsis. Pt is s/p fall resulting in comminuted fracture of Left ulna. Plan: Pyelonephritis -Miropenem IV 1gm Q8hr started 03/16/2018 -gentamycin IV 80mg q8hrs -Dr Woo (ID) consulted: will f/u -CT Abdomen and Pelvis: Acute Left Pyelonephritis -Ultrasound Abdomen: positive Fatty Liver, No signs of cholecystitis, stones, duct dilation -IVF NS 100mls/hr -Vitals: Tmax 1002.8, Today 98 BP 116/751 HR 93 -WBC 110 -Pro Calcitonin 19.1 -Blood cultures: Preliminary, no growth 48hrs -repeat blood cultures ordered Humeral, ulna, radial fractures -Dr. Garza- recommendations appreciated, surgery scheduled for wednesday. -EKG- pending read -INR-1.2; PT-15.1; aPTT-41 -03/15/18 CXR- no active disease -03/15/[address]- multiple comminuted and distracted fractures at the proximal portion of the left radial and ulnar bones; large displaced bony fragment form the proximal left ulna which includes coronoid process and portion of the left ulnar shaft; mild posterior dislocation at the radio humeral joint; acute comminuted displaced fracture at the lateral aspect of the left capitellum -03/15/18 Humerus Xray- no humeral fracture appreciated -03/15/18 Forearm Xray- Comminuted displaced intra-articular proximal ulnar fracture -03/15/18 Elbow Xray- Comminuted mildly displaced longitudinal/oblique fracture of the proximal radius, with possible intra-articular extension -Morphine 2mg IV q4sch prn for pain S/P mechanical fall -03/15/[address] w/o contrast- no evidence of acute intracranial hemorrhage or evidence of skull fracture -Noted humeral, ulna, and radial fractures above. Glucose Intolerance -HgbA1c 5.7 -Lipid panel LDL,95 HDL,25 -TSH 0.31 and Free T4 0.97 -Monitor Accuchecks QAC and HS Transaminitis -Hepatitis panel Negative -abdominal US: fatty liver -f/u with outpt GI History of Schizophrenia -Psych consult- Dr. Lizarraga recommendations: Schizophrenia -Atarax 25mg Q6 PRN -Seroquel 100mg PO HS -Continue to monitor Hyperkalemia resolved Prophylaxis heparin 5000 units subq for DVT prophylaxis; Pepcid 20mg po bid for gi ppx Florastor 250mg po bid PT/OT eval pending Fall Precautions NS 100cc/hr Disposition: pt improving with gent and miropen abx, elbow ortho sx sun
--- NOTE | 2018-03-18 20:22 | CP.PCM.PN ---
Subjective - Date & Time of Evaluation Date of Evaluation: 03/18/18 Time of Evaluation: 03:15 - Subjective Subjective: dictated Objective - Vital Signs/Intake and Output Vital Signs (last 24 hours): Temp Pulse Resp BP Pulse Ox 99.5 F 93 H 20 116/75 99 03/18/18 15:00 03/18/18 16:00 03/18/18 15:00 03/18/18 15:00 03/18/18 15:00 - Medications Medications: Current Medications Famotidine (Pepcid) 20 mg PO BID [facility] Last Admin: 03/18/18 17:34 Dose: 20 mg Hydroxyzine HCl (Atarax) 25 mg PO Q6 PRN PRN Reason: Anxiety Last Admin: 03/18/18 01:45 Dose: 25 mg Sodium Chloride (Sodium Chloride 0.9%) 1,000 mls @ 100 mls/hr IV .Q10H [facility] Last Admin: 03/18/18 10:15 Dose: Not Given Meropenem 1 gm/ Sodium (Chloride) 100 mls @ 100 mls/hr IVPB Q8H [facility] PRN Reason: Protocol Last Admin: 03/18/18 20:06 Dose: 100 mls/hr Gentamicin Sulfate 80 mg/ (Sodium Chloride) 102 mls @ 200 mls/hr IVPB Q8H [facility] Last Admin: 03/18/18 18:09 Dose: 200 mls/hr Morphine Sulfate (Morphine) 2 mg IVP Q4 PRN PRN Reason: Pain, severe (8-10) Last Admin: 03/18/18 00:59 Dose: 2 mg Quetiapine Fumarate (Seroquel) 100 mg PO [facility] Last Admin: 03/17/18 22:26 Dose: 100 mg Saccharomyces Boulardii (Florastor) 250 mg PO BID [facility] Last Admin: 03/18/18 17:34 Dose: 250 mg Ziprasidone (Geodon Cap) 20 mg PO BID [facility] Last Admin: 03/18/18 17:34 Dose: 20 mg - Labs Labs: 03/18/18 11:16 03/18/18 11:16 PT 13.2 SECONDS (9.7-12.2) H 03/18/18 11:16 INR 1.2 03/18/18 11:16 APTT 36 SECONDS (21-34) H 03/18/18 11:16
--- NOTE | 2018-03-19 01:56 | CON ---
Copied To: Pradip Garza MD Attending MD: Pradip Garza MD DATE: 03/18/2018 REASON FOR CONSULTATION: Left elbow fracture. HISTORY OF PRESENT ILLNESS: A 58-year-old right-hand dominant female who presents to [facility] after a fall at work, landing on her left upper extremity. The patient had immediate pain, swelling, and deformity of her elbow. Initial x-rays confirmed displaced Monteggia fracture of the elbow. 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 She states she slipped on a wet floor in the school. Denied loss of consciousness. PAST MEDICAL HISTORY: Significant for gastritis, pyelonephritis, schizophrenia. PAST SURGICAL HISTORY: Hysterectomy. PHYSICAL EXAMINATION: Left elbow has marked swelling. Compartments are soft. The patient has difficulty moving her elbow due to pain. Skin is intact, positive elbow ecchymosis. Neurovascularly intact. Distal pulses +2. No tenderness over the shoulder or wrist area. Right elbow: Full range of motion. No instability. No bony tenderness. LABORATORY DATA: X-rays of the left elbow were seen and reviewed. AP, lateral and oblique showed and confirmed proximal ulnar fracture with displacement of the coronoid and complete radial head fracture and multiple fragement displacement CT scan confirms proximal ulnar fracture with anterior displacement, and proximal radial head impacted comminuted and displaced fracture. PLAN: I discussed the above findings with the patient and the primary team. At this time, I recommended surgical fixation of the fracture, this will include open reduction and internal fixation of her proximal ulnar and radial head replacement with possible internal brace. We will schedule the surgery depending on preoperative clearance. The patient presents with high white count and will need infection workup. In the meantime, she is placed in a posterior long arm splint. Pradip Garza MD MTDKassy
--- NOTE | 2018-03-19 01:57 | PN ---
Copied To: Alli Woo MD Attending MD: Alli Woo MD DATE: 03/18/2018 SUBJECTIVE: The patient is in isolation as she had ESBL yesterday. I had put her on Merrem and gentamicin, and today she looks lot better, and she denies any urinary complaints. She is still complaining of pain in the left arm and swelling, and she is waiting for the surgery, and we were waiting for her white count to come down, and it seems like she is finally getting there. She remains on antibiotics today. She had no fever. PHYSICAL EXAMINATION: VITAL SIGNS: T-max is 99.5, pulse is 90, blood pressure 116/75, and respirations are 20. HEENT: Head is atraumatic, normocephalic. GENERAL: She is obese. She speaks totally Cambodian. NECK: Supple. LUNGS: Clear. HEART: S1, S2 are regular. ABDOMEN: Nontender. EXTREMITIES: Left arm remains with an Herber bandage. Have no edema in lower extremities. LABORATORIES: Labs are noted. White count is 10.8, hemoglobin 12, hematocrit 34.9, platelet count is 268. INR is 1.2, potassium is 3.5, BUN is 11, creatinine 0.7, and LFTs are still elevated. We have done a CAT scan and did not show much. AST 57, ALT 66, and alk phos is 207, and the patient's micro culture showed E. coli which is ESBL positive. She had a comminuted fracture of left ulna status post fall. Also has pyelonephritis, gastritis, and schizophrenia, and has no signs of cholecystitis at this time, and we will continue present antibiotics and we can repeat the procalcitonin level tomorrow to be sure as I am told that she may be going for surgery on Wednesday. We will follow. Alli Woo MD
[2018-03-19] MEDS: Meropenem 1 GM in Sodium Chloride 0.9% 100 ML IVPB SCH ×3 (03:57→21:00)
--- NOTE | 2018-03-19 04:56 | CP.PCM.PN ---
<Cristal Mayberry - Last Filed: 03/19/18 07:46> Subjective - Date & Time of Evaluation Date of Evaluation: 03/19/18 Time of Evaluation: 04:54 - Subjective Subjective: Pt seen and examined at bedside, no acute events overnight. Pt continues to have cold sores. Pt denies chest pain, SOB, abd pain, nausea, vomiting, diarrhea Objective - Vital Signs/Intake and Output Vital Signs (last 24 hours): Temp Pulse Resp BP Pulse Ox 100.4 F H 103 H 20 164/104 H 96 03/19/18 00:00 03/19/18 00:00 03/19/18 00:00 03/19/18 00:00 03/19/18 00:00 Intake and Output: 03/18/18 03/19/18 18:59 06:59 Intake Total 1800 Balance 1800 - Medications Medications: Current Medications Acetaminophen (Tylenol 325mg Tab) 650 mg PO Q6 PRN PRN Reason: Fever >100.4 F Last Admin: 03/19/18 01:24 Dose: 650 mg Famotidine (Pepcid) 20 mg PO BID [facility] Last Admin: 03/18/18 17:34 Dose: 20 mg Hydroxyzine HCl (Atarax) 25 mg PO Q6 PRN PRN Reason: Anxiety Last Admin: 03/18/18 01:45 Dose: 25 mg Sodium Chloride (Sodium Chloride 0.9%) 1,000 mls @ 100 mls/hr IV .Q10H [facility] Last Admin: 03/18/18 21:07 Dose: 100 mls/hr Meropenem 1 gm/ Sodium (Chloride) 100 mls @ 100 mls/hr IVPB Q8H [facility] PRN Reason: Protocol Last Admin: 03/19/18 03:57 Dose: 100 mls/hr Gentamicin Sulfate 80 mg/ (Sodium Chloride) 102 mls @ 200 mls/hr IVPB Q8H [facility] Last Admin: 03/19/18 02:50 Dose: 200 mls/hr Lisinopril (Zestril) 5 mg PO DAILY [facility] Morphine Sulfate (Morphine) 2 mg IVP Q4 PRN PRN Reason: Pain, severe (8-10) Last Admin: 03/18/18 00:59 Dose: 2 mg Quetiapine Fumarate (Seroquel) 100 mg PO HS [facility] Last Admin: 03/18/18 21:07 Dose: 100 mg Saccharomyces Boulardii (Florastor) 250 mg PO BID [facility] Last Admin: 03/18/18 17:34 Dose: 250 mg Ziprasidone (Geodon Cap) 20 mg PO BID [facility] Last Admin: 03/18/18 17:34 Dose: 20 mg - Labs Labs: 03/18/18 11:16 03/18/18 11:16 PT 13.2 SECONDS (9.7-12.2) H 03/18/18 11:16 INR 1.2 03/18/18 11:16 APTT 36 SECONDS (21-34) H 03/18/18 11:16 Assessment and Plan - Assessment and Plan (Free Text) Assessment: 58yo female with a PMH of pyelonephritis (december 2017), gastritis and schizophrenia admitted for pyelonephritis and to rule out sepsis. Pt is s/p fall resulting in comminuted fracture of left ulna. 1. Pyelonephritis -CT Abdomen and Pelvis: Acute Left Pyelonephritis -Ultrasound Abdomen: positive Fatty Liver, No signs of cholecystitis, stones, duct dilation -urine cx + E.coli -Merrem IV 1gm Q8(03/16) -gentamycin IV 80mg q8 -ID consult Dr. Woo 2. S/P Fall -03/15/[address]- multiple comminuted and distracted fractures at the proximal portion of the left radial and ulnar bones; large displaced bony fragment form the proximal left ulna which includes coronoid process and portion of the left ulnar shaft; mild posterior dislocation at the radio humeral joint -Head CT negative for acute pathology -Morphine 2mg IV q4 PRN -sx 03/20? 3. Glucose Intolerance -HgbA1c 5.7 -accuchecks achs 4. Transaminitis -Hepatitis panel Negative -abdominal US: fatty liver -f/u outpt w/ GI 5. Schizophrenia -Atarax 25mg Q6 PRN -Seroquel 100mg PO HS -Psych consult- Dr. Lizarraga Ppx Prophylaxis Pepcid 20mg BID Fall Precautions Dispo: IV Abx, ortho sx 03/20 <Kallie Hernandez V - Last Filed: 03/19/18 09:10> Objective - Vital Signs/Intake and Output Vital Signs (last 24 hours): Temp Pulse Resp BP Pulse Ox 98.8 F 91 H 20 125/59 L 96 03/19/18 07:00 03/19/18 07:00 03/19/18 07:00 03/19/18 07:00 03/19/18 07:00 Intake and Output: 03/19/18 03/19/18 06:59 18:59 Intake Total 1800 Balance 1800 - Medications Medications: Current Medications Acetaminophen (Tylenol 325mg Tab) 650 mg PO Q6 PRN PRN Reason: Fever >100.4 F Last Admin: 03/19/18 01:24 Dose: 650 mg Famotidine (Pepcid) 20 mg PO BID [facility] Last Admin: 03/18/18 17:34 Dose: 20 mg Hydroxyzine HCl (Atarax) 25 mg PO Q6 PRN PRN Reason: Anxiety Last Admin: 03/18/18 01:45 Dose: 25 mg Sodium Chloride (Sodium Chloride 0.9%) 1,000 mls @ 100 mls/hr IV .Q10H [facility] Last Admin: 03/19/18 06:44 Dose: Not Given Meropenem 1 gm/ Sodium (Chloride) 100 mls @ 100 mls/hr IVPB Q8H [facility] PRN Reason: Protocol Last Admin: 03/19/18 03:57 Dose: 100 mls/hr Gentamicin Sulfate 80 mg/ (Sodium Chloride) 102 mls @ 200 mls/hr IVPB Q8H [facility] Last Admin: 03/19/18 02:50 Dose: 200 mls/hr Lisinopril (Zestril) 5 mg PO DAILY [facility] Morphine Sulfate (Morphine) 2 mg IVP Q4 PRN PRN Reason: Pain, severe (8-10) Last Admin: 03/18/18 00:59 Dose: 2 mg Quetiapine Fumarate (Seroquel) 100 mg PO HS [facility] Last Admin: 03/18/18 21:07 Dose: 100 mg Saccharomyces Boulardii (Florastor) 250 mg PO BID [facility] Last Admin: 03/18/18 17:34 Dose: 250 mg Ziprasidone (Geodon Cap) 20 mg PO BID [facility] Last Admin: 03/18/18 17:34 Dose: 20 mg - Labs Labs: 03/19/18 06:39 03/19/18 06:39 PT 13.2 SECONDS (9.7-12.2) H 03/18/18 11:16 INR 1.2 03/18/18 11:16 APTT 36 SECONDS (21-34) H 03/18/18 11:16 Attending/Attestation - Attestation I have personally seen and examined this patient.: Yes I have fully participated in the care of the patient.: Yes I have reviewed all pertinent clinical information, including history, physical exam and plan: Yes Notes (Text): Patient seen, examined and case discussed with day-time resident. Patient spiked low grade temperature: 100.4F received one time dose of Tylenol. Patient reports she is feeling ok. Denies fever, denies chills, denies chest pain, denies nausea, denies vomitting, reports stomach does bother her from time to time, denies diarrhea. She reports she is nervous for surgery given this is her first surgery and I told her this is understandable. We are awaiting urine culture from 03/17/18 to see if the urinary tract infection has cleared. Assessment/Plan 1) Pyelonephritis Sepsis Assessment/Plan * Criteria: Leukocytosis, T>100.4F: Source: urinary tract infection/ pyelonephritis * Infectious Disease (Dr. Woo) on board-->help appreciated * Blood culture (03/15/18): No growth after 3 days * Urine culture (03/15/18): E. Coli/ESBL+ * Urine culture (03/17/18): pending prelim read no growth * Lab to release official no growth this morning per phone call * Blood culture (03/17/18): No growth after 24 hours X2 * White count elevated 27/3 on admission; normalized. * Meropenem 1 gram IVPB Q8H (active since 03/16/18) * Gentamicin 80mg IVPB Q8H (active since 03/17/18) * Florastor 250mg PO BID * NS 100cc/hr * Procalcitonin: 19.13 * Will repeat today * Imaging: CT Chest/Abdomen/Pelvis (03/16/18): acute left pyelonephritis. No evidence of abscess. No urinary tract obstruction. Unremarkable right kidney. * Morphine 2mg IV Q4H PRN pain 2) Humeral, ulna, radial fractures Assessment/Plan * Dr. Garza (orothopedic) television parts tester--> help appreciated * Tentative plan for OR for Wednesday if patient medically optimized in light of treatment for UTI * INR-1.2; PT-12.8; aPTT-41 * 03/15/18 CXR- no active disease * 03/15/[address]- multiple comminuted and distracted fractures at the proximal portion of the left radial and ulnar bones; large displaced bony fragment form the proximal left ulna which includes coronoid process and portion of the left ulnar shaft; mild posterior dislocation at the radio humeral joint; acute comminuted displaced fracture at the lateral aspect of the left capitellum * 03/15/18 Humerus Xray- no humeral fracture appreciated * 03/15/18 Forearm Xray- Comminuted displaced intra-articular proximal ulnar fracture * 03/15/18 Elbow Xray- Comminuted mildly displaced longitudinal/oblique fracture of the proximal radius, with possible intra-articular extension * Morphine 2mg IV q4sch prn for pain 3) S/P mechanical fall Assessment/Plan * 03/15/[address] w/o contrast- no evidence of acute intracranial hemorrhage or evidence of skull fracture * Noted humeral, ulna, and radial fractures above. 4) Impaired Glucose Tolerance Assessment/Plan * HgbA1c: 5.7 * Will need repeat in one year to reduce risk of overt diabetes * Lipid panel: T, cholestrol: 153, LDL: 92, HDL: 28 * Will need OTC omega 3 FA to increase HDL on discharge 5) History of Gastritis Assessment/Plan * Pepcid 20mg po bid * Refrain from NSAIDs 6) Hx of elevated cholesterol Assessment/Plan * Lipid panel: T, cholestrol: 153, LDL: 92, HDL: 28 * Will need OTC omega 3 FA to increase HDL on discharge * Hold statin given transaminitis 7) Transaminitis Assessment/Plan * Hepatitis panel: negative * Abdominal US (03/16/18): fatty liver. No evidence of cholelithiasis or cholecystitis. NO evidence of biliary obstruction. No additional abnormality. * CT Chest/Abdomen/Pelvis (03/16/18): acute left pyelonephritis. No evidence of abscess. No urinary tract obstruction. Unremarkable right kidney. Unremarkable. No gross lesion or ductial dilatation. * Tyleneol 650mg PO Q6H PRN fever * Monitor LFTs 8) History of Schizophrenia Assessment/Plan * Psych consult- Dr. Lizarraga on board * Switched from Quetiapine 100 mg PO HS [facility] to Geodorn 20mg PO BID to reduce weight gain 03/17/18 * Seroquel 100mg POQHS * Atarax 25mg PO Q6H 9) Hyperkalemia-->Normalized Assessment/Plan * Resolved 10) Cold Sores Assessment/Plan * started on 03/18/18; improving 11) Prophylaxis * Pepcid 20mg po bid for gi ppx * Florastor 250mg po bid * Heparin 5000 units subq 8H for DVT ppx * Will hold at midnight for OR tomorrow * PT/OT eval * Fall Precautions * NS 100cc/hr Disposition: Will repeat EKG today and procalcitonin; Patient's urine culture () shows no growth. Patient likely to proceed to OR tomorrow for multiple right upper extremity fractures. We will hold heparin dvt tonight for anticipated surgery. Surgery and anesthesia to discuss risk and benefits of procedure prior to OR.
[2018-03-19] MEDS: Sodium Chloride 0.9% 1,000 ML IV SCH ×4 (06:44→16:30)
[2018-03-19 06:45] LABS: BASO # 0.1 K/uL (0.0-0.2); BASO % 0.6 % (0.0-2.0); EOS # 0.5 K/uL (0.0-0.7); EOS % 5.6 % (0.0-4.0); HEMOGLOBIN 12.2 g/dL (11.0-16.0); MEAN CORPUSCULAR HEMOGLOBIN 28.9 pg (27.0-31.0); MEAN CORPUSCULAR HGB CONC 34.4 g/dL (33.0-37.0); MEAN PLATELET VOLUME 8.2 fL (7.2-11.7); MONO # 1.5 K/uL (0.0-0.8); MONO % 14.8 % (0.0-10.0); NEUT # 4.8 K/uL (1.8-7.0); RBC 4.23 Mil/uL (3.80-5.20); RED CELL DISTRIBUTION WIDTH 15.4 % (11.5-14.5); WHITE BLOOD COUNT 9.8 K/uL (4.8-10.8)
[2018-03-19 07:07] LABS: ALBUMIN 3.6 g/dL (3.5-5.0); ALT/SGPT 63 U/L (9-52); AST/SGOT 54 U/L (14-36); BLOOD UREA NITROGEN 10 mg/dL (7-17); CALCIUM 8.5 mg/dl (8.6-10.4); GFR AFRICAN-AMERICAN > 60; GFR NON-AFRICAN AMERICAN > 60
[2018-03-19] MEDS: Saccharomyces Boulardi 250 mg Cap PO SCH ×2 (10:41→18:02)
[2018-03-20] MEDS: Meropenem 1 GM in Sodium Chloride 0.9% 100 ML IVPB SCH ×3 (03:10→20:12)
[2018-03-20 08:53] LABS: BASO # 0.1 K/uL (0.0-0.2); BASO % 0.7 % (0.0-2.0); EOS # 0.6 K/uL (0.0-0.7); EOS % 5.2 % (0.0-4.0); HEMOGLOBIN 12.2 g/dL (11.0-16.0); LYMPH % 28.3 % (20.0-40.0); MEAN CELL VOLUME 83.8 fL (81.0-99.0); MEAN CORPUSCULAR HEMOGLOBIN 28.8 pg (27.0-31.0); MEAN CORPUSCULAR HGB CONC 34.3 g/dL (33.0-37.0); MEAN PLATELET VOLUME 7.9 fL (7.2-11.7); MONO # 1.5 K/uL (0.0-0.8); NEUT # 5.6 K/uL (1.8-7.0); NEUT % 51.8 % (50.0-75.0); NRBC % 0.1 % (0.0-2.0); RBC 4.25 Mil/uL (3.80-5.20); RED CELL DISTRIBUTION WIDTH 15.4 % (11.5-14.5); WHITE BLOOD COUNT 10.7 K/uL (4.8-10.8)
[2018-03-20 09:12] LABS: ALBUMIN 3.6 g/dL (3.5-5.0); ALT/SGPT 58 U/L (9-52); AST/SGOT 37 U/L (14-36); BLOOD UREA NITROGEN 12 mg/dL (7-17); CALCIUM 8.6 mg/dl (8.6-10.4); GFR AFRICAN-AMERICAN > 60; GFR NON-AFRICAN AMERICAN > 60
[2018-03-20] MEDS: Saccharomyces Boulardi 250 mg Cap PO SCH ×2 (09:16→18:33)
[2018-03-20] MEDS ORDERED: Midazolam 2 MG/2 ML VIAL ONE (10:38)
[2018-03-20] MEDS ORDERED: Propofol 10 mg/ml Inj (20 ML) ONE (10:38)
[2018-03-20] MEDS ORDERED: Succinylcholine Chloride 20 mg/ml Syr (5 ml) IV ONE (10:59)
[2018-03-20] MEDS ORDERED: Neostigmine Methylsulfate 3mg/3ml Syringe IV ONE (11:00)
[2018-03-20] MEDS ORDERED: Rocuronium 10 mg/ml (5 ml) ONE (11:00)
--- NOTE | 2018-03-20 11:47 | CP.PCM.PN ---
<Lidia Mederos - Last Filed: 03/20/18 15:27> Subjective - Date & Time of Evaluation Date of Evaluation: 03/20/18 Time of Evaluation: 07:00 - Subjective Subjective: PGY2- Progress Note for Dr. Hernandez Patient seen and examined at bedside. Patient in no acute distress. Patient has left arm pain. Patient going to OR today for her multiple left upper extremity fractures. Patient denies chest pain, shortness of breath, abdominal pain, nausea, vomiting, constipation, or diarrhea. Patient seen post op. AAOx3. Patient is having left arm pain, otherwise no complaints. Patient to be on SUSTAINABLE SYSTEMS ANALYST pump. Objective - Vital Signs/Intake and Output Vital Signs (last 24 hours): Temp Pulse Resp BP Pulse Ox 98.6 F 89 20 120/79 97 03/20/18 09:38 03/20/18 09:38 03/20/18 09:38 03/20/18 09:38 03/20/18 09:38 - Medications Medications: Current Medications Acetaminophen (Tylenol 325mg Tab) 650 mg PO Q6 PRN PRN Reason: Fever >100.4 F Last Admin: 03/19/18 01:24 Dose: 650 mg Famotidine (Pepcid) 20 mg PO BID [facility] Last Admin: 03/20/18 09:16 Dose: Not Given Heparin Sodium (Porcine) (Heparin) 5,000 units SC Q8H [facility] Last Admin: 03/19/18 17:24 Dose: 5,000 units Hydroxyzine HCl (Atarax) 25 mg PO Q6 PRN PRN Reason: Anxiety Last Admin: 03/18/18 01:45 Dose: 25 mg Sodium Chloride (Sodium Chloride 0.9%) 1,000 mls @ 100 mls/hr IV .Q10H [facility] Last Admin: 03/19/18 16:30 Dose: 100 mls/hr Meropenem 1 gm/ Sodium (Chloride) 100 mls @ 100 mls/hr IVPB Q8H [facility] PRN Reason: Protocol Last Admin: 03/20/18 03:10 Dose: 100 mls/hr Gentamicin Sulfate 80 mg/ (Sodium Chloride) 102 mls @ 200 mls/hr IVPB Q8H [facility] Last Admin: 03/20/18 03:11 Dose: 200 mls/hr Lisinopril (Zestril) 5 mg PO DAILY [facility] Last Admin: 03/20/18 09:34 Dose: 5 mg Morphine Sulfate (Morphine) 2 mg IVP Q4 PRN PRN Reason: Pain, severe (8-10) Last Admin: 03/18/18 00:59 Dose: 2 mg Quetiapine Fumarate (Seroquel) 100 mg PO HS [facility] Last Admin: 03/19/18 21:06 Dose: 100 mg Saccharomyces Boulardii (Florastor) 250 mg PO BID [facility] Last Admin: 03/20/18 09:16 Dose: Not Given Ziprasidone (Geodon Cap) 20 mg PO BID [facility] Last Admin: 03/20/18 09:34 Dose: 20 mg - Labs Labs: 03/20/18 08:41 03/20/18 08:41 PT 13.2 SECONDS (9.7-12.2) H 03/18/18 11:16 INR 1.2 03/18/18 11:16 APTT 36 SECONDS (21-34) H 03/18/18 11:16 - Constitutional Appears: Non-toxic, No Acute Distress - Head Exam Head Exam: ATRAUMATIC, NORMAL INSPECTION, NORMOCEPHALIC - Eye Exam Eye Exam: EOMI, Normal appearance - ENT Exam ENT Exam: Mucous Membranes Moist - Respiratory Exam Respiratory Exam: Clear to Ausculation Bilateral, NORMAL BREATHING PATTERN - Cardiovascular Exam Cardiovascular Exam: REGULAR RHYTHM, RRR, +S1, +S2 - GI/Abdominal Exam GI & Abdominal Exam: Soft, Normal Bowel Sounds. absent: Tenderness - Extremities Exam Additional comments: left arm in sling - Neurological Exam Neurological Exam: Alert, Awake, Oriented x3 - Psychiatric Exam Psychiatric exam: Normal Affect, Normal Mood - Skin Skin Exam: Intact, Normal Color, Warm Assessment and Plan - Assessment and Plan (Free Text) Assessment: Pyelonephritis with Sepsis -CT Abdomen and Pelvis: Acute Left Pyelonephritis -Ultrasound Abdomen: positive Fatty Liver, No signs of cholecystitis, stones, duct dilation -Blood culture (03/15/18): No growth -Urine culture (03/15/18): E. Coli/ESBL+ -Urine culture (03/17/18): no growth -Blood culture (03/17/18): No growth X2 -ID consult Dr. Woo meds: -Merrem IV 1gm Q8(03/16) -gentamycin IV 80mg q8 -florastor 250mg po BID S/P Fall Multiple Left Upper Extremity Fractures -Head CT negative for acute pathology -03/15/[address]- multiple comminuted and distracted fractures at the proximal portion of the left radial and ulnar bones; large displaced bony fragment form the proximal left ulna which includes coronoid process and portion of the left ulnar shaft; mild posterior dislocation at the radio humeral joint -03/15/18 Humerus Xray- no humeral fracture appreciated -03/15/18 Forearm Xray- Comminuted displaced intra-articular proximal ulnar fracture -03/15/18 Elbow Xray- Comminuted mildly displaced longitudinal/oblique fracture of the proximal radius, with possible intra-articular extension -surgery on 03/20/18 with ortho -SUSTAINABLE SYSTEMS ANALYST pump Glucose Intolerance -HgbA1c 5.7 -Lipid panel: T, cholestrol: 153, LDL: 92, HDL: 28 Transaminitis -Hepatitis panel Negative -abdominal US: fatty liver -f/u outpt w/ GI Schizophrenia -Atarax 25mg Q6 PRN -Seroquel 100mg PO HS -Geodon 20mg po BID -Psych consult- Dr. Lizarraga Prophylaxis Heparin 5000 u sc q8h held prior to surgery, check with ortho when to restart Pepcid 20mg BID Fall Precautions Discussed with Dr. Hernandez <Kallie Hernandez V - Last Filed: 03/20/18 15:51> Objective - Vital Signs/Intake and Output Vital Signs (last 24 hours): Temp Pulse Resp BP Pulse Ox 97.6 F 104 H 20 130/65 95 03/20/18 14:41 03/20/18 14:41 03/20/18 14:41 03/20/18 14:41 03/20/18 14:41 Intake and Output: 03/20/18 03/20/18 06:59 18:59 Intake Total 1150 Balance 1150 - Medications Medications: Current Medications Acetaminophen (Tylenol 325mg Tab) 650 mg PO Q6 PRN PRN Reason: Fever >100.4 F Last Admin: 03/19/18 01:24 Dose: 650 mg Famotidine (Pepcid) 20 mg PO BID [facility] Last Admin: 03/20/18 09:16 Dose: Not Given Heparin Sodium (Porcine) (Heparin) 5,000 units SC Q8H [facility] Last Admin: 03/19/18 17:24 Dose: 5,000 units Hydromorphone/Sodium Chloride (Dilaudid [employer]hanger) 4 mg IV Q4H PRN; Protocol PRN Reason: Pain, moderate (4-7) Hydroxyzine HCl (Atarax) 25 mg PO Q6 PRN PRN Reason: Anxiety Last Admin: 03/18/18 01:45 Dose: 25 mg Sodium Chloride (Sodium Chloride 0.9%) 1,000 mls @ 100 mls/hr IV .Q10H [facility] Stop: 03/21/18 00:01 Last Admin: 03/19/18 16:30 Dose: 100 mls/hr Meropenem 1 gm/ Sodium (Chloride) 100 mls @ 100 mls/hr IVPB Q8H [facility] PRN Reason: Protocol Last Admin: 03/20/18 10:45 Dose: 100 mls Gentamicin Sulfate 80 mg/ (Sodium Chloride) 102 mls @ 200 mls/hr IVPB Q8H [facility] Last Admin: 03/20/18 11:00 Dose: 102 mls Lisinopril (Zestril) 5 mg PO DAILY [facility] Last Admin: 03/20/18 09:34 Dose: 5 mg Quetiapine Fumarate (Seroquel) 100 mg PO HS [facility] Last Admin: 03/19/18 21:06 Dose: 100 mg Saccharomyces Boulardii (Florastor) 250 mg PO BID [facility] Last Admin: 03/20/18 09:16 Dose: Not Given Ziprasidone (Geodon Cap) 20 mg PO BID [facility] Last Admin: 03/20/18 09:34 Dose: 20 mg - Labs Labs: 03/20/18 08:41 03/20/18 08:41 PT 13.2 SECONDS (9.7-12.2) H 03/18/18 11:16 INR 1.2 03/18/18 11:16 APTT 36 SECONDS (21-34) H 03/18/18 11:16 Attending/Attestation - Attestation I have personally seen and examined this patient.: Yes I have fully participated in the care of the patient.: Yes I have reviewed all pertinent clinical information, including history, physical exam and plan: Yes Notes (Text): Patient seen, examined, and case discussed with day-time resident. Patient seen in the PACU post OR for left upper extremity. Patient reports she has pain. We have showed her the pain SUSTAINABLE SYSTEMS ANALYST and to press when she has pain. She denies headache, denies chest pain, denies palpitations, denies cough, denies abdominal pain. I have told her she will be asked about bowel movements and urine after surgery. She is very sweet and nice. White count has normalized. Afebrile. Procalcitonin has improved significantly from 19.13-->2.57 Assessment/Plan 1) Sepsis Pyelonephritis Assessment/Plan * Criteria: Leukocytosis, T>100.4F: Source: urinary tract infection/ pyelonephritis * Infectious Disease (Dr. Woo) on board-->help appreciated * Blood culture (03/15/18): No growth after 4 days * Urine culture (03/15/18): E. Coli/ESBL+ * Urine culture (03/17/18): no growth * Blood culture (03/17/18): No growth after 48 hours X2 * White count elevated 27/3 on admission; normalized and afebrile * Meropenem 1 gram IVPB Q8H (active since 03/16/18) * Gentamicin 80mg IVPB Q8H (active since 03/17/18) * Florastor 250mg PO BID * NS 100cc/hr * Procalcitonin: 19.13-->2.57 * Imaging: CT Chest/Abdomen/Pelvis (03/16/18): acute left pyelonephritis. No evidence of abscess. No urinary tract obstruction. Unremarkable right kidney. * Morphine 2mg IV Q4H PRN pain 2) Humeral, ulna, radial fractures Assessment/Plan * Dr. Garza (orothopedic) assistant professor of religion--> help appreciated * preoperative/intraoperative/postoperative management per surgery * Chemical anticoagulation per surgery to restart post-surgery * INR-1.2; PT-12.8; aPTT-41 * 03/15/18 CXR- no active disease * 03/15/[address]- multiple comminuted and distracted fractures at the proximal portion of the left radial and ulnar bones; large displaced bony fragment form the proximal left ulna which includes coronoid process and portion of the left ulnar shaft; mild posterior dislocation at the radio humeral joint; acute comminuted displaced fracture at the lateral aspect of the left capitellum * 03/15/18 Humerus Xray- no humeral fracture appreciated * 03/15/18 Forearm Xray- Comminuted displaced intra-articular proximal ulnar fracture * 03/15/18 Elbow Xray- Comminuted mildly displaced longitudinal/oblique fracture of the proximal radius, with possible intra-articular extension * 03/21/18: Elbow Xray- Status post ORIF proximal ulna left elbow as well as partial left elbow replacement. Postoperative changes are identified including skin dorene * Dilaudid SUSTAINABLE SYSTEMS ANALYST 3) S/P mechanical fall Assessment/Plan * 03/15/[address] w/o contrast- no evidence of acute intracranial hemorrhage or evidence of skull fracture * Noted humeral, ulna, and radial fractures above. 4) Impaired Glucose Tolerance Assessment/Plan * HgbA1c: 5.7 * Will need repeat in one year to reduce risk of overt diabetes * Lipid panel: T, cholestrol: 153, LDL: 92, HDL: 28 * Will need OTC omega 3 FA to increase HDL on discharge 5) History of Gastritis Assessment/Plan * Pepcid 20mg po bid * Refrain from NSAIDs 6) Hx of elevated cholesterol Assessment/Plan * Lipid panel: T, cholestrol: 153, LDL: 92, HDL: 28 * Will need OTC omega 3 FA to increase HDL on discharge * Hold statin given transaminitis 7) Transaminitis Assessment/Plan * Hepatitis panel: negative * Abdominal US (03/16/18): fatty liver. No evidence of cholelithiasis or cholecystitis. NO evidence of biliary obstruction. No additional abnormality. * CT Chest/Abdomen/Pelvis (03/16/18): acute left pyelonephritis. No evidence of abscess. No urinary tract obstruction. Unremarkable right kidney. Unremarkable. No gross lesion or ductial dilatation. * Tyleneol 650mg PO Q6H PRN fever * Monitor LFTs 8) History of Schizophrenia Assessment/Plan * Psych consult- Dr. Lizarraga on board * Switched from Quetiapine 100 mg PO HS [facility] to Geodorn 20mg PO BID to reduce weight gain 03/17/18 * Seroquel 100mg POQHS * Atarax 25mg PO Q6H 9) Hyperkalemia-->Normalized Assessment/Plan * Resolved 10) Cold Sores Assessment/Plan * started on 03/18/18; improving 11) Prophylaxis * Pepcid 20mg po bid for gi ppx * Florastor 250mg po bid * Heparin 5000 units subq 8H for DVT ppx * Will continue to hold dvt ppx until orthopedic has cleared to restart chemical anticoagulation * PT/OT eval * Fall Precautions * NS 100cc/hr Disposition: Patient's urine culture (03/17/18) shows no growth. Patient is on IV abx for uti. Patient is underwent surgery procedure. Postoperative management per surgery.
--- NOTE | 2018-03-20 12:54 | PCM.SURG1 ---
Surgeon's Initial Post Op Note - Surgeon's Notes Surgeon: Dr. Garza Linoleum Floor Layer: Dr. Marie Type of Anesthesia: General Endo Anesthesia Administered By: Dr. Zhang Pre-Operative Diagnosis: left elbow fracture Operative Findings: see dictation Post-Operative Diagnosis: same Operation Performed: left elbow ulna ORIF and replacement of radial head Specimen/Specimens Removed: left radial head Estimated Blood Loss: EBL {In ML}: 10 Blood Products Given: N/A Drains Used: No Drains Post-Op Condition: Good Date of Surgery/Procedure: 03/20/18 Time of Surgery/Procedure: 12:57
[2018-03-20] MEDS: HYDROmorphone 0.5 mg/0.5 ml ISec IVP PRN ×6 (13:07→14:11)
--- NOTE | 2018-03-20 15:01 | RAD ---
Date of service: 03/20/2018 PROCEDURE: Radiographs of the left elbow. HISTORY: s/p left elbow ORIF COMPARISON: No prior. FINDINGS: BONES: Status post ORIF for proximal ulnar fracture including a dorsal compression plate transfixed by multiple screws. Independent screws transfix proximal ulnar fractures. Replacement prosthesis is seen at the level of the head of the radius. JOINTS: No subluxation or dislocation. SOFT TISSUES: Postoperative changes noted including posterior skin dorene. JOINT EFFUSION: None. OTHER FINDINGS: None IMPRESSION: Status post ORIF proximal ulna left elbow as well as partial left elbow replacement. Postoperative changes are identified including skin dorene.
--- NOTE | 2018-03-20 17:39 | RAD ---
Date of service: 03/20/2018 PROCEDURE: Intraoperative Fluoroscopy. HISTORY: RADIAL HEAD FX ORIF LT ELBOW FINDINGS: Fluoroscopic assistance was provided for open reduction internal fixation left elbow fracture. Please refer to the operative report from JINA Harrison. 18.8 seconds of fluoroscopy time was utilized with a total cumulative radiation dose 0.66 mGy.
[2018-03-20] MEDS: Sodium Chloride 0.9% 1,000 ML IV SCH (22:27)
[2018-03-21] MEDS: Meropenem 1 GM in Sodium Chloride 0.9% 100 ML IVPB SCH ×3 (03:41→20:49)
[2018-03-21 07:19] LABS: BASO # 0.1 K/uL (0.0-0.2); BASO % 0.4 % (0.0-2.0); EOS # 0.1 K/uL (0.0-0.7); EOS % 0.7 % (0.0-4.0); HEMOGLOBIN 12.3 g/dL (11.0-16.0); LYMPH # 2.9 K/uL (1.0-4.3); LYMPH % 16.6 % (20.0-40.0); MEAN CELL VOLUME 83.7 fL (81.0-99.0); MEAN CORPUSCULAR HEMOGLOBIN 28.6 pg (27.0-31.0); MEAN CORPUSCULAR HGB CONC 34.1 g/dL (33.0-37.0); MEAN PLATELET VOLUME 7.8 fL (7.2-11.7); MONO # 2.3 K/uL (0.0-0.8); MONO % 12.8 % (0.0-10.0); NEUT # 12.2 K/uL (1.8-7.0); NEUT % 69.5 % (50.0-75.0); NRBC % 0.1 % (0.0-2.0); RBC 4.29 Mil/uL (3.80-5.20); RED CELL DISTRIBUTION WIDTH 15.3 % (11.5-14.5)
[2018-03-21 07:25] LABS: WHITE BLOOD COUNT 17.6 K/uL (4.8-10.8)
[2018-03-21 07:39] LABS: ALBUMIN 3.7 g/dL (3.5-5.0); ALT/SGPT 53 U/L (9-52); AST/SGOT 68 U/L (14-36); BLOOD UREA NITROGEN 7 mg/dL (7-17); CALCIUM 8.3 mg/dl (8.6-10.4); GFR AFRICAN-AMERICAN > 60; GFR NON-AFRICAN AMERICAN > 60
--- NOTE | 2018-03-21 07:49 | CP.PCM.PN ---
Addendum entered and electronically signed by Rudolph Campbell DO 13:38: Plan: Humeral, ulna, radial fractures -Dr. Kim consulted, help appreciated: L Elbow Surgery 03/20/2018 s/p day 1 -03/15/18 CXR- no active disease -03/15/[address]- multiple comminuted and distracted fractures at the proximal portion of the left radial and ulnar bones; large displaced bony fragment form the proximal left ulna which includes coronoid process and portion of the left ulnar shaft; mild posterior dislocation at the radio humeral joint; acute comminuted displaced fracture at the lateral aspect of the left capitellum -03/15/18 Humerus Xray- no humeral fracture appreciated -03/15/18 Forearm Xray- Comminuted displaced intra-articular proximal ulnar fracture -03/15/18 Elbow Xray- Comminuted mildly displaced longitudinal/oblique fracture of the proximal radius, with possible intra-articular extension -Dilaudid ALLIGATOR HUNTER 8min prn for pain Leukocytosis -wbc elevated to 17.4 from 10 - likely post op induced -afebrile -non-toxic Pyelonephritis -improving -Miropenem IV 1gm Q8hr started 03/16/2018 -gentamycin IV 80mg q8hrs started 03/17 -Dr Woo (ID) consulted -03/16 CT Abdomen and Pelvis: Acute Left Pyelonephritis -Ultrasound Abdomen: positive Fatty Liver, No signs of cholecystitis, stones, duct dilation -IVF NS 100mls/hr -Pro Calcitonin 19.1 -03/15 Blood cultures: neg -03/17 second blood culture: neg S/P mechanical fall -s/p L elbow sx -PT/OT consulted today -03/15/[address] w/o contrast- no evidence of acute intracranial hemorrhage or evidence of skull fracture -Noted humeral, ulna, and radial fractures above. Glucose Intolerance -HgbA1c 5.7 -Lipid panel LDL,95 HDL,25 -TSH 0.31 and Free T4 0.97 -Monitor Accuchecks QAC and HS Transaminitis -Hepatitis panel Negative -abdominal US: fatty liver -f/u with outpt GI -ALT65, AST55 slight elevation since yesterday 37,58 History of Schizophrenia -Psych consult- Dr. Lizarraga recommendations: Schizophrenia -Atarax 25mg Q6 PRN -Seroquel 100mg PO HS -Continue to monitor Hyperkalemia resolved Prophylaxis heparin 5000 units subq for DVT prophylaxis; held post op, will restart on Sx recommendation Pepcid 20mg po bid for gi ppx Florastor 250mg po bid PT/OT eval pending Fall Precautions NS 100cc/hr Disposition: pt improving with gent and miropen abx, s/p elbow ortho sx Original Note: <Rudolph Campbell - Last Filed: 03/21/18 10:43> Subjective - Date & Time of Evaluation Date of Evaluation: 03/21/18 Time of Evaluation: 07:49 - Subjective Subjective: Medicine note for Hospitalist Service Pt seen and examined at bedside. Pt reports 6/10 pain in L elbow after surgery. Pt feels it is not adequately controlled by Dilaudid ALLIGATOR HUNTER 8min. Pt reports no chest pain, SOB, dizziness, calf pain or N/V. Objective - Vital Signs/Intake and Output Vital Signs (last 24 hours): Temp Pulse Resp BP Pulse Ox 99 F 81 20 178/88 H 95 03/21/18 04:05 03/21/18 04:05 03/21/18 04:05 03/21/18 04:05 03/21/18 04:05 Intake and Output: 03/21/18 03/21/18 06:59 18:59 Intake Total 3300 Output Total 1100 Balance 2200 - Medications Medications: Current Medications Acetaminophen (Tylenol 325mg Tab) 650 mg PO Q6 PRN PRN Reason: Fever >100.4 F Last Admin: 03/19/18 01:24 Dose: 650 mg Famotidine (Pepcid) 20 mg PO BID [facility] Last Admin: 03/20/18 18:33 Dose: 20 mg Heparin Sodium (Porcine) (Heparin) 5,000 units SC Q8H [facility] Last Admin: 03/19/18 17:24 Dose: 5,000 units Hydromorphone/Sodium Chloride (Dilaudid Technical Instructor) 4 mg IV Q4H PRN; Protocol PRN Reason: Pain, moderate (4-7) Hydroxyzine HCl (Atarax) 25 mg PO Q6 PRN PRN Reason: Anxiety Last Admin: 03/21/18 00:24 Dose: 25 mg Meropenem 1 gm/ Sodium (Chloride) 100 mls @ 100 mls/hr IVPB Q8H [facility] PRN Reason: Protocol Last Admin: 03/21/18 03:41 Dose: 100 mls/hr Gentamicin Sulfate 80 mg/ (Sodium Chloride) 102 mls @ 200 mls/hr IVPB Q8H [facility] Last Admin: 03/21/18 02:20 Dose: 200 mls/hr Quetiapine Fumarate (Seroquel) 100 mg PO HS [facility] Last Admin: 03/20/18 21:53 Dose: 100 mg Saccharomyces Boulardii (Florastor) 250 mg PO BID [facility] Last Admin: 03/20/18 18:33 Dose: 250 mg Ziprasidone (Geodon Cap) 20 mg PO BID [facility] Last Admin: 03/20/18 18:33 Dose: 20 mg - Labs Labs: 03/21/18 07:03 03/21/18 07:03 PT 13.2 SECONDS (9.7-12.2) H 03/18/18 11:16 INR 1.2 03/18/18 11:16 APTT 36 SECONDS (21-34) H 03/18/18 11:16 - Constitutional Appears: Well, Non-toxic - Head Exam Head Exam: ATRAUMATIC, NORMAL INSPECTION - Eye Exam Eye Exam: EOMI, Normal appearance - ENT Exam ENT Exam: Mucous Membranes Moist Additional comments: Mouth sores healing in Lip, perioral region - Neck Exam Neck Exam: absent: Lymphadenopathy - Respiratory Exam Respiratory Exam: Clear to Ausculation Bilateral, NORMAL BREATHING PATTERN. absent: Rales, Rhonchi, Wheezes, Respiratory Distress - Cardiovascular Exam Cardiovascular Exam: RRR, +S1, +S2. absent: Murmur - GI/Abdominal Exam GI & Abdominal Exam: Soft, Normal Bowel Sounds. absent: Guarding, Tenderness - Extremities Exam Extremities Exam: absent: Calf Tenderness, Pedal Edema Additional comments: L elbow in splint - Back Exam Back Exam: NORMAL INSPECTION, vertebral tenderness. absent: CVA tenderness (L) (resolved), CVA tenderness (R) - Neurological Exam Neurological Exam: Alert, Awake, Oriented x3 - Psychiatric Exam Psychiatric exam: Normal Affect, Normal Mood - Skin Skin Exam: Intact, Normal Color. absent: Diaphoretic, Pallor, Petechiae, Rash Assessment and Plan - Assessment and Plan (Free Text) Assessment: 58yo female with a PMH of pyelonephritis (december 2017), gastritis and schizophrenia admitted for pyelonephritis and to rule out sepsis. Pt s/p Left elbow ulna ORIF and replacement of radial head. Plan: Pyelonephritis -Miropenem IV 1gm Q8hr started 03/16/2018 -gentamycin IV 80mg q8hrs -Dr Woo (ID) consulted -03/16 CT Abdomen and Pelvis: Acute Left Pyelonephritis -Ultrasound Abdomen: positive Fatty Liver, No signs of cholecystitis, stones, duct dilation -IVF NS 100mls/hr -Vitals: Tmax 1002.8, Today 98 BP 137/82 HR 89 -WBC 17.4: Likely elevated post op, will follow -Pro Calcitonin 19.1 -03/15 Blood cultures: no growth 5days -03/17 second blood culture: 3 days no growth Humeral, ulna, radial fractures -Dr. Garza- recommendations appreciated, surgery scheduled for wednesday. -EKG- pending read -INR-1.2; PT-15.1; aPTT-41 -03/15/18 CXR- no active disease -03/15/[address]- multiple comminuted and distracted fractures at the proximal portion of the left radial and ulnar bones; large displaced bony fragment form the proximal left ulna which includes coronoid process and portion of the left ulnar shaft; mild posterior dislocation at the radio humeral joint; acute comminuted displaced fracture at the lateral aspect of the left capitellum -03/15/18 Humerus Xray- no humeral fracture appreciated -03/15/18 Forearm Xray- Comminuted displaced intra-articular proximal ulnar fracture -03/15/18 Elbow Xray- Comminuted mildly displaced longitudinal/oblique fracture of the proximal radius, with possible intra-articular extension -Morphine 2mg IV q4sch prn for pain S/P mechanical fall -s/p L elbow sx -PT/OT consulted today -03/15/[address] w/o contrast- no evidence of acute intracranial hemorrhage or evidence of skull fracture -Noted humeral, ulna, and radial fractures above. Glucose Intolerance -HgbA1c 5.7 -Lipid panel LDL,95 HDL,25 -TSH 0.31 and Free T4 0.97 -Monitor Accuchecks QAC and HS Transaminitis -Hepatitis panel Negative -abdominal US: fatty liver -f/u with outpt GI -ALT65, AST55 slight elevation since yesterday 37,58 History of Schizophrenia -Psych consult- Dr. Lizarraga recommendations: Schizophrenia -Atarax 25mg Q6 PRN -Seroquel 100mg PO HS -Continue to monitor Hyperkalemia resolved Prophylaxis heparin 5000 units subq for DVT prophylaxis; held post op, will restart on Sx recommendation Pepcid 20mg po bid for gi ppx Florastor 250mg po bid PT/OT eval pending Fall Precautions NS 100cc/hr Disposition: pt improving with gent and miropen abx, s/p elbow ortho sx <Gurjit Goodman - Last Filed: 03/21/18 20:40> Objective - Vital Signs/Intake and Output Vital Signs (last 24 hours): Temp Pulse Resp BP Pulse Ox 99.3 F 92 H 22 193/98 H 97 03/21/18 16:00 03/21/18 16:00 03/21/18 16:00 03/21/18 16:00 03/21/18 16:00 - Medications Medications: Current Medications Acetaminophen (Tylenol 325mg Tab) 650 mg PO Q6 PRN PRN Reason: Fever >100.4 F Last Admin: 03/19/18 01:24 Dose: 650 mg Docusate Sodium (Colace) 100 mg PO TID [facility] Last Admin: 03/21/18 18:14 Dose: 100 mg Famotidine (Pepcid) 20 mg PO BID [facility] Last Admin: 03/21/18 18:14 Dose: 20 mg Heparin Sodium (Porcine) (Heparin) 5,000 units SC Q8H [facility] Last Admin: 03/19/18 17:24 Dose: 5,000 units Hydrocortisone (Cortizone 1% Cream) 0 gm TOP BID [facility] Last Admin: 03/21/18 18:13 Dose: 1 applic Hydromorphone HCl (Dilaudid) 0.5 mg IVP Q4H PRN PRN Reason: Pain, moderate (4-7) Hydromorphone HCl (Dilaudid) 1 mg IVP Q4H PRN PRN Reason: Pain, severe (8-10) Last Admin: 03/21/18 16:22 Dose: 1 mg Hydroxyzine HCl (Atarax) 25 mg PO Q6 PRN PRN Reason: Anxiety Last Admin: 03/21/18 00:24 Dose: 25 mg Meropenem 1 gm/ Sodium (Chloride) 100 mls @ 100 mls/hr IVPB Q8H [facility] PRN Reason: Protocol Last Admin: 03/21/18 12:28 Dose: 100 mls/hr Gentamicin Sulfate 80 mg/ (Sodium Chloride) 102 mls @ 200 mls/hr IVPB Q8H [facility] Last Admin: 03/21/18 10:12 Dose: 200 mls/hr Quetiapine Fumarate (Seroquel) 100 mg PO HS [facility] Last Admin: 03/20/18 21:53 Dose: 100 mg Saccharomyces Boulardii (Florastor) 250 mg PO BID [facility] Last Admin: 03/21/18 18:14 Dose: 250 mg Valacyclovir HCl (Valtrex) 2,000 mg PO ONCE ONE PRN Reason: Protocol Stop: 03/22/18 18:01 Ziprasidone (Geodon Cap) 40 mg PO BID [facility] Last Admin: 03/21/18 18:16 Dose: 40 mg - Labs Labs: 03/21/18 07:03 03/21/18 07:03 PT 13.2 SECONDS (9.7-12.2) H 03/18/18 11:16 INR 1.2 03/18/18 11:16 APTT 36 SECONDS (21-34) H 03/18/18 11:16 Attending/Attestation - Attestation I have personally seen and examined this patient.: Yes I have fully participated in the care of the patient.: Yes I have reviewed all pertinent clinical information, including history, physical exam and plan: Yes Notes (Text): 03/21/18 20:27 Patient was seen and examined at 1:45 PM 03/21/18 667 B Exam, assesssment and plan were gone over with the resident. Also on ROS: Right arm numbness but not pain Itchiness under the bilateral breasts Also on Exam: HEENT: fever blisters present upper and lower lips Left Arm in cast with the patient able to move and feel fingers, capillary refill is 2 seconds, warmth, no discoloration A few scattered slightly erythematous patches of skin present inferiorly bilateral breasts Spoke with Psychiatrist Dr. Lizarraga: keep patient on both Seroquel (which is being used for sleep) and Geodon 40 mg PO BID [employer]IG[employer] HUNTER Dilaudid was discontinued as patient is not in severe pain and as patient pushed the button on the ALLIGATOR HUNTER 5 times during my exam despite no signs of discomfort or stress. Instead Dilaudid 0.5 mg IV Q4H PRN Moderate Pain and 1 mg IV Q4H PRN Severe Pain was ordered. As patient is on Dilaudid for her pain, she has been placed on Colace 100 mg PO TID to prevent constipation: she had a bowel movement this morning Valacyclovir 2 gm PO to be given at 2:45 PM 03/21/18 and 2:45 AM 03/22/18 was ordered to help reduce severity of the fever blisters on lips. Incentive Spirometry has been ordered. Hydrocortisone 1% Cream Topical 2x/day ordered for the macular patches of skin inferior bilateral breasts. Explanation as to plan was provided to patient in [place] with the help of patient's Nurse Peggy. Medicine Team will need to speak with the Orthopedics Team as to their plans for 35 days of DVT prophylaxis post op. She is currently on Heparin 5,000 Units SC Q8H. We recommend Eliquis 5 mg PO 2x/day (we can provide patient with samples from Hospitalist Office). Gurjit Goodman D.O.
[2018-03-21] MEDS: Saccharomyces Boulardi 250 mg Cap PO SCH ×2 (09:42→18:14)
--- NOTE | 2018-03-21 12:10 | CARD ---
APPROVED REPORT Date of service: 03/19/2018 EKG Measurement Heart [id number] <Conclusion> Normal sinus rhythm Normal ECG
[2018-03-21] MEDS ORDERED: HYDROmorphone 0.5 mg/0.5 ml ISec IVP PRN (13:58)
[2018-03-21] MEDS: HYDROmorphone 1 mg/ml ISec IVP PRN ×2 (16:22→20:49)
[2018-03-21] MEDS: Hydrocortisone 1% Cream (30 GM) TOP SCH (18:13)
[2018-03-22 01:23] VITALS: RESP 20
[2018-03-22] MEDS: Meropenem 1 GM in Sodium Chloride 0.9% 100 ML IVPB SCH ×3 (03:26→19:34)
--- NOTE | 2018-03-22 05:35 | OP ---
Copied To: Pradip Garza MD Attending MD: Pradip Garza MD PROCEDURE DATE: 03/15/2018 PREOPERATIVE DIAGNOSES: 1. Left elbow proximal ulnar intra-articular fracture Monteggia. 2. Left radial head fracture and dislocation. 3. Left ulnar nerve cubital tunnel syndrome. POSTOPERATIVE DIAGNOSES: 1. Left elbow proximal ulnar intra-articular Monteggia fracture 2. Left radial head fracture and dislocation. 3. Left ulnar nerve cubital tunnel syndrome. PROCEDURES: 1. Open treatment of radial head fracture with radial head arthroplasty using skeletal dynamics system, 22 mm head size, 94138. 2. Open treatment of Monteggia of proximal ulnar fracture with open reduction and internal fixation, 92153. 3. Ulnar nerve neuroplasty at the cubital tunnel release, 99112. 4. Open debridement of fracture hematoma, proximal ulna and the radial head, 74959. 5. Intraoperative use of fluoroscopy, greater than 1 hour, 96075. SURGEON: Pradip Garza MD GUEST LAUNDRY ATTENDANT: Bandar Quiñonez MD TYPE OF ANESTHESIA: General. BLOOD LOSS: Minimal. SPECIMENS: Radial head. DRAINS: None. COMPLICATIONS: None. DISPOSITION: Stable to recovery room. INDICATION: This is a 58-year-old female who fell at work, landing on her left elbow. Patient was diagnosed with displaced Monteggia type fracture of proximal ulna and radial head fracture dislocation. She was admitted to the hospital and was indicated for the above surgery. Risks and benefits of the surgery were explained. Risks included but not limited to bleeding, infection, tendon, nerve, vessel injury, instability, chronic pain, malunion, nonunion, potential need for additional surgery in the future, neuropathy, stiffness. Patient understood the above risks and elected to proceed. Informed consent was obtained. DESCRIPTION OF PROCEDURE: The patient was brought to the operating room and placed supine on operating room table. After adequate general anesthesia was given and prophylactic antibiotics, a well-padded non-sterile tourniquet was placed on the patient's left upper extremity. The entire extremity was then prepped and draped in a standard surgical fashion and time-out was performed. A posterior longitudinal incision was outlined over the elbow. The arm was elevated, exsanguinated, and tourniquet was inflated to 250 mmHg. Incision was made though the skin only. All superficial veins were cauterized. Both, medial and lateral flaps were developed. Work was then begun on identifying the ulnar nerve. The nerve was identified proximally and dissected out. Flaps were elevated and nerve was clearly seen at the level of the cubital tunnel. The cubital tunnel was then incised, thus decompressing the nerve at the site more proximally. The nerve was thoroughly decompressed through the fascia and through the arcade of Roxana at the level of the mid arm. The nerve was then thoroughly decompressed from the arcade of Roxana through the two heads of the flexor carpi ulnaris. Reese's fascia was incised and the motor branch of the flexor carpi ulnaris was clearly identified and protected. The elbow was taken through full range of motion. There was no ulnar nerve subluxation. A vessel loop was placed around the nerve for the protection during the rest of the procedure. Work was then begun on identifying the radial head fracture. The anconeus was released from the proximal ulnar and elevated, carried down to identify the radiocapitellar joint. Once the joint was identified and incised, a local hematoma was evacuated and debrided with a rongeur. Multiple radial head fragment pieces were identified and removed and assembled on the back table giving a size 22 radial head. The radial neck was identified. The arm was kept in pronation throughout the procedure to protect the PIN nerve. The appropriate radial neck cut was made with an oscillating saw. The neck sizing guide was used to select the desired radial cut. After this, the medullary canal was sequentially rasped to appropriate size. Calcar planar was also used to further smooth the edges of the neck cut. With the forearm pronated, the final neck sizing guide was again measured and the trial stem with corresponding radial head and neck was selected and placed into the medullary canal. Fluoroscopic images confirmed proper fit using fluoroscopy with good restorationism of length and stability of the radial head. The wound was copiously irrigated and trial stem was left in place. Work was begun on fixing the proximal ulna. While protecting the ulnar nerve, the flexor pronator mass was elevated off the proximal ulna and carried distally to identify the fracture fragment. There was a big anterior medial fracture fragment involving the coranoid with intraarticular extension. Dissection was carried out carefully not to disturb the anterior flexor muscles. The fracture gap was entered and debrided with curettes, rongeur, and irrigation. All early hematoma was removed. There was also another fragment piece over the medial side of the proximal ulnar. The three fracture pieces were then openly reduced and held provisionally with reduction clamps. After this, multiple cortical screws were placed across the fracture site in a lagging configuration. Standard AO lagging technique was used to hold the fracture provisionally in place. An appropriate sized long proximal ulnar plate was selected and placed over the dorsal cortex of the ulnar. The triceps insertion site was longitudinaly incised to allow for closer fit of the proximal ulnar plate. The ulnar plate was provisionally held in place. Fluoroscopic images again confirmed good alignment and length of the plate with reduction of the proximal ulna. After multiple K-wires were used for provisional fixation of the plate, a cortical screw was placed in the distal oblong hole followed by two olecranon locking screws. An appropriate size compression screw was also selected and placed over the proximal ulna. The rest of the screws were placed in standard AO fashion recreating a bridge plate construct. Provisional K-wires were then removed. Fluoroscopic images both AP, lateral, and oblique were seen and reviewed that showed anatomic alignment of the proximal ulna and elbow with full mobility of the elbow in flexion, extension, supination, and pronation. Next, the radial head trial was removed and the final implant was placed into the proximal radius. This was a press-fit implant and again confirmed good alignment and stability of the elbow. The wounds were then copiously irrigated. The deep layers and fascia were closed with 0 Vicryl covering the entire plate, followed by 2-0 Vicryl for subcuticular layer, followed by dorene for skin and sterile dressing was applied consisting of fluffs, 4x4, and the long arm plaster splint. Patient tolerated the procedure well and was extubated and returned to recovery room. During this case, I was assisted by Dr. Bandar Quiñonez, a board certified orthopedic surgeon, whose assistance was needed throughout the entirety of the case in providing fracture reduction, provisional fixation, and final implant placement. His assistance was vital for intraoperative safety of the patient. Due to the patient's morbid obesity, the procedure was more difficult than the standard elbow fracture case. This required extra time during preparation and draping as well as extended operative time. The length of the case was prolonged due to these factors by 50%. Also during the procedure, fluoroscopic x-ray was used of operative time greater than 1 hour. Pradip Garza MD [facility]
[2018-03-22 07:21] LABS: BASO # 0.1 K/uL (0.0-0.2); BASO % 0.8 % (0.0-2.0); EOS # 0.6 K/uL (0.0-0.7); EOS % 3.2 % (0.0-4.0); HEMOGLOBIN 12.4 g/dL (11.0-16.0); LYMPH # 3.7 K/uL (1.0-4.3); LYMPH % 20.9 % (20.0-40.0); MEAN CELL VOLUME 82.4 fL (81.0-99.0); MEAN CORPUSCULAR HEMOGLOBIN 27.9 pg (27.0-31.0); MEAN CORPUSCULAR HGB CONC 33.9 g/dL (33.0-37.0); MEAN PLATELET VOLUME 7.6 fL (7.2-11.7); MONO # 1.9 K/uL (0.0-0.8); MONO % 10.8 % (0.0-10.0); NEUT # 11.3 K/uL (1.8-7.0); NEUT % 64.3 % (50.0-75.0); RBC 4.44 Mil/uL (3.80-5.20); RED CELL DISTRIBUTION WIDTH 15.2 % (11.5-14.5); WHITE BLOOD COUNT 17.6 K/uL (4.8-10.8)
[2018-03-22 07:39] LABS: ALBUMIN 3.8 g/dL (3.5-5.0); ALT/SGPT 49 U/L (9-52); AST/SGOT 47 U/L (14-36); BLOOD UREA NITROGEN 9 mg/dL (7-17); CALCIUM 8.6 mg/dl (8.6-10.4); GFR AFRICAN-AMERICAN > 60; GFR NON-AFRICAN AMERICAN > 60
--- NOTE | 2018-03-22 08:26 | CP.PCM.PN ---
<Rudolph Campbell - Last Filed: 03/22/18 15:33> Subjective - Date & Time of Evaluation Date of Evaluation: 03/22/18 Time of Evaluation: 10:59 - Subjective Subjective: medicine note for hospitalist service Pt seen and examined at bedside. Pt report persistent Left elbow pain. Pt also complains of constipation since wednesday. Pt reports no loss of sensation or increased pressure felt in the surgical wound site. Pt reports no chest pain, no SOB no pain with inspiration, no dizziness or headache. Objective - Vital Signs/Intake and Output Vital Signs (last 24 hours): Temp Pulse Resp BP Pulse Ox 99 F 110 H 20 134/64 94 L 03/22/18 07:00 03/22/18 07:00 03/22/18 07:00 03/22/18 07:00 03/22/18 07:00 Intake and Output: 03/22/18 03/22/18 06:59 18:59 Intake Total 400 Balance 400 - Medications Medications: Current Medications Acetaminophen (Tylenol 325mg Tab) 650 mg PO Q6 PRN PRN Reason: Fever >100.4 F Last Admin: 03/21/18 21:49 Dose: 650 mg Docusate Sodium (Colace) 100 mg PO TID [facility] Last Admin: 03/21/18 18:14 Dose: 100 mg Famotidine (Pepcid) 20 mg PO BID [facility] Last Admin: 03/21/18 18:14 Dose: 20 mg Heparin Sodium (Porcine) (Heparin) 5,000 units SC Q8 [facility] Last Admin: 03/22/18 07:00 Dose: 5,000 units Hydrocortisone (Cortizone 1% Cream) 0 gm TOP BID [facility] Last Admin: 03/21/18 18:13 Dose: 1 applic Hydromorphone HCl (Dilaudid) 0.5 mg IVP Q4H PRN PRN Reason: Pain, moderate (4-7) Hydromorphone HCl (Dilaudid) 1 mg IVP Q4H PRN PRN Reason: Pain, severe (8-10) Last Admin: 03/21/18 20:49 Dose: 1 mg Hydroxyzine HCl (Atarax) 25 mg PO Q6 PRN PRN Reason: Anxiety Last Admin: 03/21/18 00:24 Dose: 25 mg Meropenem 1 gm/ Sodium (Chloride) 100 mls @ 100 mls/hr IVPB Q8H [facility] PRN Reason: Protocol Last Admin: 03/22/18 03:26 Dose: 100 mls/hr Gentamicin Sulfate 80 mg/ (Sodium Chloride) 102 mls @ 200 mls/hr IVPB Q8H [facility] Last Admin: 03/22/18 03:26 Dose: 200 mls/hr Quetiapine Fumarate (Seroquel) 100 mg PO HS [facility] Last Admin: 03/21/18 21:48 Dose: 100 mg Saccharomyces Boulardii (Florastor) 250 mg PO BID [facility] Last Admin: 03/21/18 18:14 Dose: 250 mg Valacyclovir HCl (Valtrex) 2,000 mg PO ONCE ONE PRN Reason: Protocol Stop: 03/22/18 18:01 Ziprasidone (Geodon Cap) 40 mg PO BID [facility] Last Admin: 03/21/18 18:16 Dose: 40 mg - Labs Labs: 03/22/18 07:02 03/22/18 07:02 PT 13.2 SECONDS (9.7-12.2) H 03/18/18 11:16 INR 1.2 03/18/18 11:16 APTT 36 SECONDS (21-34) H 03/18/18 11:16 - Constitutional Appears: Well, Non-toxic - Head Exam Head Exam: ATRAUMATIC, NORMAL INSPECTION - Eye Exam Eye Exam: EOMI, Normal appearance. absent: Scleral icterus - ENT Exam ENT Exam: Mucous Membranes Moist, Normal Exam - Neck Exam Neck Exam: absent: Tenderness - Respiratory Exam Respiratory Exam: absent: Rales, Rhonchi, Wheezes - Cardiovascular Exam Cardiovascular Exam: RRR, +S1, +S2. absent: Murmur - GI/Abdominal Exam GI & Abdominal Exam: Soft, Normal Bowel Sounds. absent: Tenderness - Extremities Exam Extremities Exam: Tenderness (L elbow). absent: Calf Tenderness - Back Exam Back Exam: NORMAL INSPECTION. absent: CVA tenderness (L), CVA tenderness (R) - Neurological Exam Neurological Exam: Alert, Awake, Normal Gait, Oriented x3 - Psychiatric Exam Psychiatric exam: Normal Affect, Normal Mood - Skin Skin Exam: Normal Color, Warm Assessment and Plan - Assessment and Plan (Free Text) Assessment: 58yo female with a PMH of pyelonephritis (december 2017), gastritis and schizophrenia admitted for pyelonephritis and to rule out sepsis. Pt s/p Left elbow ulna ORIF and replacement of radial head. Plan: Humeral, ulna, radial fractures -Dr. Kim consulted, help appreciated: L Elbow Surgery 03/20/2018 s/p day 1 -03/15/18 CXR- no active disease -03/15/[address]- multiple comminuted and distracted fractures at the proximal portion of the left radial and ulnar bones; large displaced bony fragment form the proximal left ulna which includes coronoid process and portion of the left ulnar shaft; mild posterior dislocation at the radio humeral joint; acute comminuted displaced fracture at the lateral aspect of the left capitellum -03/15/18 Humerus Xray- no humeral fracture appreciated -03/15/18 Forearm Xray- Comminuted displaced intra-articular proximal ulnar fracture -03/15/18 Elbow Xray- Comminuted mildly displaced longitudinal/oblique fracture of the proximal radius, with possible intra-articular extension -Dilaudid Q4hrs prn for pain Constipation -Dulcolax 5mg -colace 100mg Leukocytosis -wbc elevated to 17.6 from 10 - likely post op induced -afebrile -non-toxic Pyelonephritis -improving -Miropenem IV 1gm Q8hr started 03/16/2018 -gentamycin IV 80mg q8hrs started 03/17 -Dr Woo (ID) consulted -03/16 CT Abdomen and Pelvis: Acute Left Pyelonephritis -Ultrasound Abdomen: positive Fatty Liver, No signs of cholecystitis, stones, duct dilation -Pro Calcitonin 19.1 -03/15 Blood cultures: neg -03/17 second blood culture: neg S/P mechanical fall -s/p L elbow sx -PT/OT consulted today -03/15/[address] w/o contrast- no evidence of acute intracranial hemorrhage or evidence of skull fracture -Noted humeral, ulna, and radial fractures above. Glucose Intolerance -HgbA1c 5.7 -Lipid panel LDL,47 HDL,49 -TSH 0.31 and Free T4 0.97 -Monitor Accuchecks QAC and HS Transaminitis -Hepatitis panel Negative -abdominal US: fatty liver -f/u with outpt GI -ALT49, AST47 down-trending History of Schizophrenia -Psych consult- Dr. Lizarraga recommendations: Schizophrenia -Atarax 25mg Q6 PRN -Seroquel 100mg PO HS -Continue to monitor Hyperkalemia resolved Prophylaxis heparin 5000 units subq for DVT prophylaxis; held post op, will restart on Sx recommendation Pepcid 20mg po bid for gi ppx Florastor 250mg po bid PT/OT eval pending Fall Precautions Disposition: pt improving with gent and miropen abx, s/p elbow ortho sx <Kallie Hernandez V - Last Filed: 03/22/18 23:04> Objective - Vital Signs/Intake and Output Vital Signs (last 24 hours): Temp Pulse Resp BP Pulse Ox 98.6 F 90 20 173/82 H 99 03/22/18 15:23 03/22/18 15:23 03/22/18 15:23 03/22/18 15:23 03/22/18 15:23 - Medications Medications: Current Medications Acetaminophen (Tylenol 325mg Tab) 650 mg PO Q6 PRN PRN Reason: Fever >100.4 F Last Admin: 03/21/18 21:49 Dose: 650 mg Docusate Sodium (Colace) 100 mg PO TID [facility] Last Admin: 03/22/18 17:53 Dose: 100 mg Famotidine (Pepcid) 20 mg PO BID [facility] Last Admin: 03/22/18 17:53 Dose: 20 mg Heparin Sodium (Porcine) (Heparin) 5,000 units SC Q8 [facility] Last Admin: 03/22/18 21:36 Dose: 5,000 units Hydrocortisone (Cortizone 1% Cream) 0 gm TOP BID [facility] Last Admin: 03/22/18 18:30 Dose: 1 applic Hydromorphone HCl (Dilaudid) 0.5 mg IVP Q4H PRN PRN Reason: Pain, moderate (4-7) Hydromorphone HCl (Dilaudid) 1 mg IVP Q4H PRN PRN Reason: Pain, severe (8-10) Last Admin: 03/22/18 21:36 Dose: 1 mg Hydroxyzine HCl (Atarax) 25 mg PO Q6 PRN PRN Reason: Anxiety Last Admin: 03/21/18 00:24 Dose: 25 mg Meropenem 1 gm/ Sodium (Chloride) 100 mls @ 100 mls/hr IVPB Q8H [facility] PRN Reason: Protocol Last Admin: 03/22/18 19:34 Dose: 100 mls/hr Gentamicin Sulfate 80 mg/ (Sodium Chloride) 102 mls @ 200 mls/hr IVPB Q8H [facility] Last Admin: 03/22/18 19:00 Dose: 200 mls/hr Quetiapine Fumarate (Seroquel) 100 mg PO HS [facility] Last Admin: 03/22/18 21:35 Dose: 100 mg Saccharomyces Boulardii (Florastor) 250 mg PO BID [facility] Last Admin: 03/22/18 17:53 Dose: 250 mg Ziprasidone (Geodon Cap) 40 mg PO BID [facility] Last Admin: 03/22/18 17:54 Dose: 40 mg - Labs Labs: 03/22/18 07:02 03/22/18 07:02 PT 13.2 SECONDS (9.7-12.2) H 03/18/18 11:16 INR 1.2 03/18/18 11:16 APTT 36 SECONDS (21-34) H 03/18/18 11:16 Attending/Attestation - Attestation I have personally seen and examined this patient.: Yes I have fully participated in the care of the patient.: Yes I have reviewed all pertinent clinical information, including history, physical exam and plan: Yes Notes (Text): Patient seen, examined, and case discussed with medical field representative. Patient seen this morning. Patient noting for pain over the left upper extremity. Her last use of Dilaudid at 8:30PM last night. I did explain to her she has Dilaudid as PRN for pain and she will need to ask for her. I did speak with Cachorro her nurse to give her a dose of Dilaudid during my time of evaluation. Patient is noted for tachycardia but likely secondary to pain. She denies flatus and denies having a bowel movement post procedure. Order for Ducolax. Assessment/Plan 1) Sepsis Pyelonephritis Assessment/Plan * Criteria: Leukocytosis, T>100.4F: Source: urinary tract infection/ pyelonephritis * Infectious Disease (Dr. Woo) on board-->help appreciated * Blood culture (03/15/18): No growth after 5 days * Blood culture (03/17/18): No growth after 5 days * Urine culture (03/15/18): E. Coli/ESBL+ * Urine culture (03/17/18): no growth * White count elevated. This is post-operative day 2. We will need to monitor. * Meropenem 1 gram IVPB Q8H (active since 03/16/18) * Gentamicin 80mg IVPB Q8H (active since 03/17/18) * Florastor 250mg PO BID * NS 100cc/hr * Procalcitonin: 19.13-->2.57 * Imaging: CT Chest/Abdomen/Pelvis (03/16/18): acute left pyelonephritis. No evidence of abscess. No urinary tract obstruction. Unremarkable right kidney. * Morphine 2mg IV Q4H PRN pain 2) Humeral, ulna, radial fractures Assessment/Plan * Dr. Garza (orothopedic) front desk coordinator--> help appreciated * preoperative/intraoperative/postoperative management per surgery * Chemical anticoagulation per surgery to restart post-surgery * We will need to call surgery regarding Eliquis as post-or prophylaxis. * INR-1.2; PT-12.8; aPTT-41 * 03/15/18 CXR- no active disease * 03/15/[address]- multiple comminuted and distracted fractures at the proximal portion of the left radial and ulnar bones; large displaced bony fragment form the proximal left ulna which includes coronoid process and portion of the left ulnar shaft; mild posterior dislocation at the radio humeral joint; acute comminuted displaced fracture at the lateral aspect of the left capitellum * 03/15/18 Humerus Xray- no humeral fracture appreciated * 03/15/18 Forearm Xray- Comminuted displaced intra-articular proximal ulnar fracture * 03/15/18 Elbow Xray- Comminuted mildly displaced longitudinal/oblique fracture of the proximal radius, with possible intra-articular extension * 03/21/18: Elbow Xray- Status post ORIF proximal ulna left elbow as well as partial left elbow replacement. Postoperative changes are identified including skin dorene * Dilaudid 0.5mg IVP Q4H PRN mod pain * Dilaudid 1mg IVP Q 4H PRN severe pain 3) S/P mechanical fall Assessment/Plan * 03/15/[address] w/o contrast- no evidence of acute intracranial hemorrhage or evidence of skull fracture * Noted humeral, ulna, and radial fractures above. 4) Impaired Glucose Tolerance Assessment/Plan * HgbA1c: 5.7 * Will need repeat in one year to reduce risk of overt diabetes * Lipid panel: T, cholestrol: 153, LDL: 92, HDL: 28 * Will need OTC omega 3 FA to increase HDL on discharge 5) History of Gastritis Assessment/Plan * Pepcid 20mg po bid * Refrain from NSAIDs 6) Hx of elevated cholesterol Assessment/Plan * Lipid panel: T, cholestrol: 153, LDL: 92, HDL: 28 * Will need OTC omega 3 FA to increase HDL on discharge * Hold statin given transaminitis 7) Transaminitis Assessment/Plan * Hepatitis panel: negative * Abdominal US (03/16/18): fatty liver. No evidence of cholelithiasis or cholecystitis. NO evidence of biliary obstruction. No additional abnormality. * CT Chest/Abdomen/Pelvis (03/16/18): acute left pyelonephritis. No evidence of abscess. No urinary tract obstruction. Unremarkable right kidney. Unremarkable. No gross lesion or ductial dilatation. * Tyleneol 650mg PO Q6H PRN fever * Monitor LFTs 8) History of Schizophrenia Assessment/Plan * Psych consult- Dr. Lizarraga on board * Switched from Quetiapine 100 mg PO HS [facility] to Geodorn 20mg PO BID to reduce weight gain 03/17/18 * Seroquel 100mg POQHS * Atarax 25mg PO Q6H 9) Hyperkalemia-->Normalized Assessment/Plan * Resolved 10) Cold Sores Assessment/Plan * started on 03/18/18; improving * Given Valtrex 03/21/18 11) Prophylaxis * Pepcid 20mg po bid for gi ppx * Florastor 250mg po bid * Heparin 5000 units subq 8H for DVT ppx resumed post-procedure * PT/OT eval * Fall Precautions * NS 100cc/hr * Note: patient is an established patient of the clinic. Disposition: * Monitor white count make sure for downtrending post procedure * f/u procalcitonin in AM * F/u orthopedic in regards to Eliquis for ortho prophylaxis * f/u ID in regards to possible PO cipro upon discharge
[2018-03-22] MEDS: HYDROmorphone 1 mg/ml ISec IVP PRN ×2 (10:48→21:36)
[2018-03-22] MEDS: Saccharomyces Boulardi 250 mg Cap PO SCH ×2 (10:50→17:53)
[2018-03-22] MEDS: Hydrocortisone 1% Cream (30 GM) TOP SCH ×2 (10:51→18:30)
[2018-03-22] MEDS ORDERED: Bisacodyl 5mg EC Tab PO ONE (10:57)
[2018-03-22 19:04] LABS: SQUAMOUS EPITHIAL < 1 /hpf (0-5); URINE BILIRUBIN NEGATIVE (NEGATIVE); URINE BLOOD 1+ (NEGATIVE); URINE CLARITY Clear (Clear); URINE COLOR Straw (YELLOW); URINE GLUCOSE (UA) NORMAL (Normal); URINE LEUKOCYTE ESTERASE NEG Leu/uL (Negative); URINE PROTEIN NEGATIVE (NEGATIVE); URINE UROBILINOGEN NORMAL mg/dL (0.2-1.0)
[2018-03-23] MEDS: Meropenem 1 GM in Sodium Chloride 0.9% 100 ML IVPB SCH ×3 (04:12→19:26)
[2018-03-23 08:46] LABS: HEMOGLOBIN 12.2 g/dL (11.0-16.0); MEAN CELL VOLUME 84.2 fL (81.0-99.0); MEAN CORPUSCULAR HEMOGLOBIN 29.4 pg (27.0-31.0); MEAN CORPUSCULAR HGB CONC 34.9 g/dL (33.0-37.0); MEAN PLATELET VOLUME 7.7 fL (7.2-11.7); RBC 4.16 Mil/uL (3.80-5.20); RED CELL DISTRIBUTION WIDTH 15.1 % (11.5-14.5); WHITE BLOOD COUNT 14.1 K/uL (4.8-10.8)
[2018-03-23 09:02] LABS: ALB/GLOB RATIO 0.9 (1.0-2.1); ALBUMIN 3.7 g/dL (3.5-5.0); ALT/SGPT 45 U/L (9-52); AST/SGOT 31 U/L (14-36); BLOOD UREA NITROGEN 13 mg/dL (7-17); CALCIUM 8.8 mg/dl (8.6-10.4); GFR AFRICAN-AMERICAN > 60; GFR NON-AFRICAN AMERICAN > 60
[2018-03-23] MEDS: Saccharomyces Boulardi 250 mg Cap PO SCH ×2 (10:10→17:40)
[2018-03-23] MEDS: Hydrocortisone 1% Cream (30 GM) TOP SCH ×2 (10:11→17:41)
--- NOTE | 2018-03-23 11:09 | CP.PCM.PN ---
<Rudolph Campbell - Last Filed: 03/23/18 16:34> Subjective - Date & Time of Evaluation Date of Evaluation: 03/23/18 Time of Evaluation: 10:57 - Subjective Subjective: Medicine note for hospitalist service Pt seen and examined at bedside. Pt reports that pain is well controlled with dilaudid. Pt has now new complaints overnight. As per nursing, pt reported visual and auditory hallucinations. Pt denies chest pain, sob, n/v, f/c. Objective - Vital Signs/Intake and Output Vital Signs (last 24 hours): Temp Pulse Resp BP Pulse Ox 99.2 F 87 20 107/61 95 03/23/18 07:00 03/23/18 07:00 03/23/18 07:00 03/23/18 07:00 03/23/18 07:00 Intake and Output: 03/23/18 03/23/18 06:59 18:59 Intake Total 450 Balance 450 - Medications Medications: Current Medications Acetaminophen (Tylenol 325mg Tab) 650 mg PO Q6 PRN PRN Reason: Fever >100.4 F Last Admin: 03/21/18 21:49 Dose: 650 mg Docusate Sodium (Colace) 100 mg PO TID [facility] Last Admin: 03/23/18 10:10 Dose: 100 mg Famotidine (Pepcid) 20 mg PO BID [facility] Last Admin: 03/23/18 10:10 Dose: 20 mg Heparin Sodium (Porcine) (Heparin) 5,000 units SC Q8 [facility] Last Admin: 03/23/18 05:46 Dose: 5,000 units Hydrocortisone (Cortizone 1% Cream) 0 gm TOP BID [facility] Last Admin: 03/23/18 10:11 Dose: 1 applic Hydromorphone HCl (Dilaudid) 0.5 mg IVP Q4H PRN PRN Reason: Pain, moderate (4-7) Hydromorphone HCl (Dilaudid) 1 mg IVP Q4H PRN PRN Reason: Pain, severe (8-10) Last Admin: 03/22/18 21:36 Dose: 1 mg Hydroxyzine HCl (Atarax) 25 mg PO Q6 PRN PRN Reason: Anxiety Last Admin: 03/21/18 00:24 Dose: 25 mg Meropenem 1 gm/ Sodium (Chloride) 100 mls @ 100 mls/hr IVPB Q8H [facility] PRN Reason: Protocol Last Admin: 03/23/18 04:12 Dose: 100 mls/hr Gentamicin Sulfate 80 mg/ (Sodium Chloride) 102 mls @ 200 mls/hr IVPB Q8H [facility] Last Admin: 03/23/18 10:10 Dose: 200 mls/hr Quetiapine Fumarate (Seroquel) 100 mg PO HS [facility] Last Admin: 03/22/18 21:35 Dose: 100 mg Saccharomyces Boulardii (Florastor) 250 mg PO BID [facility] Last Admin: 03/23/18 10:10 Dose: 250 mg Ziprasidone (Geodon Cap) 40 mg PO BID [facility] Last Admin: 03/23/18 10:10 Dose: 40 mg - Labs Labs: 03/23/18 08:36 03/23/18 08:36 PT 13.2 SECONDS (9.7-12.2) H 03/18/18 11:16 INR 1.2 03/18/18 11:16 APTT 36 SECONDS (21-34) H 03/18/18 11:16 - Constitutional Appears: Well, Non-toxic - Head Exam Head Exam: ATRAUMATIC, NORMAL INSPECTION - Eye Exam Eye Exam: EOMI, Normal appearance - ENT Exam ENT Exam: Mucous Membranes Moist - Respiratory Exam Respiratory Exam: Clear to Ausculation Bilateral, NORMAL BREATHING PATTERN. absent: Rales, Rhonchi, Wheezes - Cardiovascular Exam Cardiovascular Exam: RRR, +S1, +S2. absent: Rubs, Murmur - GI/Abdominal Exam GI & Abdominal Exam: Soft, Normal Bowel Sounds. absent: Guarding, Tenderness - Extremities Exam Extremities Exam: Tenderness (L elbow). absent: Calf Tenderness, Joint Swelling , Pedal Edema Additional comments: Left fingers moving, sensation intact - Back Exam Back Exam: NORMAL INSPECTION. absent: CVA tenderness (L), CVA tenderness (R) - Neurological Exam Neurological Exam: Alert, Awake, CN II-XII Intact, Oriented x3 - Psychiatric Exam Psychiatric exam: Normal Affect, Normal Mood Additional comments: denies hallucinations when asked on exam - Skin Skin Exam: Dry, Intact, Normal Color, Warm Assessment and Plan - Assessment and Plan (Free Text) Assessment: 58yo female with a PMH of pyelonephritis (december 2017), gastritis and schizophrenia admitted for pyelonephritis and to rule out sepsis. Pt s/p Left elbow ulna ORIF and replacement of radial head. Plan: Humeral, ulna, radial fractures -Dr. Kim consulted, help appreciated: L Elbow Surgery 03/20/2018 s/p day 3 -03/15/18 CXR- no active disease -03/15/[address]- multiple comminuted and distracted fractures at the proximal portion of the left radial and ulnar bones; large displaced bony fragment form the proximal left ulna which includes coronoid process and portion of the left ulnar shaft; mild posterior dislocation at the radio humeral joint; acute comminuted displaced fracture at the lateral aspect of the left capitellum -03/15/18 Humerus Xray- no humeral fracture appreciated -03/15/18 Forearm Xray- Comminuted displaced intra-articular proximal ulnar fracture -03/15/18 Elbow Xray- Comminuted mildly displaced longitudinal/oblique fracture of the proximal radius, with possible intra-articular extension -Dilaudid Q4hrs prn for pain Constipation -Dulcolax 5mg -colace 100mg Leukocytosis -wbc elevated to 14, likely post op -afebrile -non-toxic Pyelonephritis -improving -Miropenem IV 1gm Q8hr started 03/16/2018 -gentamycin IV 80mg q8hrs started 03/17 -Dr Woo (ID) consulted -03/16 CT Abdomen and Pelvis: Acute Left Pyelonephritis -Ultrasound Abdomen: positive Fatty Liver, No signs of cholecystitis, stones, duct dilation -Pro Calcitonin 19.1 -03/15 Blood cultures: neg -03/17 second blood culture: neg S/P mechanical fall -s/p L elbow sx -PT/OT consulted today -03/15/[address] w/o contrast- no evidence of acute intracranial hemorrhage or evidence of skull fracture -Noted humeral, ulna, and radial fractures above. Glucose Intolerance -HgbA1c 5.7 -Lipid panel LDL,47 HDL,49 -TSH 0.31 and Free T4 0.97 -Monitor Accuchecks QAC and HS Transaminitis -Hepatitis panel Negative -abdominal US: fatty liver -f/u with outpt GI -ALT49, AST47 down-trending History of Schizophrenia -will inform Dr. Lizarraga of reported hallucinations -Psych consult- Dr. Zia recommendations: Schizophrenia -Atarax 25mg Q6 PRN -Seroquel 100mg PO HS -Continue to monitor Hyperkalemia resolved Prophylaxis heparin 5000 units subq for DVT prophylaxis; held post op, will restart on Sx recommendation Pepcid 20mg po bid for gi ppx Florastor 250mg po bid PT/OT eval pending Fall Precautions Disposition: pt improving with gent and miropen abx, s/p elbow ortho sx, d/c tmrw if afrebril tonight <Gurjit Goodman - Last Filed: 03/24/18 18:56> Objective - Vital Signs/Intake and Output Vital Signs (last 24 hours): Temp Pulse Resp BP Pulse Ox 98.8 F 94 H 20 145/67 96 03/24/18 08:33 03/24/18 08:33 03/24/18 08:33 03/24/18 08:33 03/24/18 08:33 Intake and Output: 03/24/18 03/24/18 06:59 18:59 Intake Total 550 Balance 550 - Labs Labs: 03/24/18 11:33 03/23/18 08:36 PT 13.2 SECONDS (9.7-12.2) H 03/18/18 11:16 INR 1.2 03/18/18 11:16 APTT 36 SECONDS (21-34) H 03/18/18 11:16 Attending/Attestation - Attestation I have personally seen and examined this patient.: Yes I have fully participated in the care of the patient.: Yes I have reviewed all pertinent clinical information, including history, physical exam and plan: Yes Notes (Text): 03/24/18 18:56 This is a late entry. Care of this patient was gone over in detail with the resident. Gurjit Goodman D.O.
[2018-03-24] MEDS: Meropenem 1 GM in Sodium Chloride 0.9% 100 ML IVPB SCH (03:10)
[2018-03-24 08:34] VITALS: BP 145/67; PULSE 94; TEMP 98.8; O2SAT 96
--- NOTE | 2018-03-24 08:46 | CP.PCM.PN ---
Subjective - Date & Time of Evaluation Date of Evaluation: 03/24/18 Time of Evaluation: 08:20 - Subjective Subjective: Hospitalist Progress Note Patient was seen and examined at 8:20 AM with help of Vietnamese Translation provided by patient's nurse Peggy Currently upon FULL ROS: Itchiness under the breast resolved She is moving her bowels normally There is no back/flank pain There is NO numbness in the Left Arm/Hand and the pain in controlled NO abdominal pain NO chest pain NO SOB/coug/wheezing NO burning/pain with urination NO other complaints with full ROS Exam: General: AAOX3, NAD HEENT: NCA, EOMI, PERRLA,Bilateral Upper and Lower Lip fever blisters have resolved with the use of Valacyclovir on 03/21/18, NO cervical/supraclavicular/ submandibular lymphadenopathy, NO pharyngeal erythema/exudate, Nasal Turbinates are nonerythematous/nonedematous, Oral Mucosa is moist Cardio: NS1 and NS2, NO M/R/G Resp: CTA B/L NO R/R/W GI: BSx4, Soft, NT, NO HSM, NO guarding/rebound tenderness Ext: Pulses are strong and equal, Capillary Refill is 2 seconds, NO edema, Fingers and Toes Bilaterally are normal color/warm Neuro: CN II through XII are grossly intact Assessments: 1). Pyelonephritis 2). Left Ulnar/Radial Fx S/P ORIF 3). IGT 4). Gastritis 5). HLD 6). Elevated LFTs 7). Schizophrenia 8). Hyperkalemia 9). Herpes Labialis 10). Leukocytosis Repeat urine culture shows resolution of E. coli UTI/Pyelonephritis Spoke with Orthopedic Suge[facility] Dr. Garza via phone this morning: NO anticoagulation needed and follow up with him next week Hyperkalemia resolved Herpes Labialis resolved Leukocytosis downtrending. Vitals are stable and patient has been fever free for 48 hours. Repeat blood and urine cultures finalized as negative Patient's pain is controlled LFTs have normalized Bilateral Inferior Breast pruritis and rash resolved on 03/23/18 morning I spoke with Clinical Reimbursement Specialist Nisha on 03/23/18 and provided to her prescription for Physical Therapy and she faxed to contact at [employer] to set up Physical Therapy and they will be contacting patient Patient is stable for discharge Discharge instructions were explained to patient in Vietnamese with the help of Nurse Peggy The following instructions will need to be provided to patient in Vietnamese upon discharge: 1). Please schedule follow up with Orthopedic Surgeon Dr. Garza for week of March 28, 2018. His office number is [phone]. 2). Please schedule follow up appointment with your primary care physicians at [facility] by calling [phone] to schedule an appointment to take place in 7 to 10 days. They will help to coordinate your health care. 3). Please have the following prescription filled at your pharmacy on your way home from the hospital: Seroquel 100 mg, 1 tablet by mouth 1 time a day at bedtime (10 PM), Dispense #30 , NO refill Geodon 40 mg, 1 tablet by mouth 2 times a day (8AM and 8 PM), Dispense #60, NO refill Atorvastatin 5 mg, 1 tablet by mouth 1 time a day with dinner (8 PM), Dispense # 30, NO refill Percocet 5/325 mg, 1 tablet by mouth every 8 hours ONLY NEEDED for severe left arm pain, Dispense #15, NO refill Ciprofloxacin 500 mg, 1 tablet by mouth 2 times a day (8AM and 8PM) until finished, Dispense #12, NO refills Lisinopril 5 mg, 1 tablet by mouth 1 time a day (8 AM), Dispense #30, NO refills Colace 100 mg, 1 tablet by mouth 2 times a day (8AM and 8 PM), Dispense #60, NO refills 4). Please be carefull going up and down the stairs and do not lift anything heavy while on Ciprofloxacin. 5). Please make sure to have a yogurt every day at lunch time (12 PM to 1 PM) for the next 36 days as this will help to regrow the good bacteria in your colon. 6). Please stay well hydrated with water throughout the day. 7). Please make sure to have 8 ounces of prune juice with your breakfast only as needed if you have not moved your bowels in 3 days. 8). Some one from your Worker's Compensation insurance will be contacting you to set up physical therapy. 9). Please take care and be well. Gurjit J. Goodman, D.O. Objective - Vital Signs/Intake and Output Vital Signs (last 24 hours): Temp Pulse Resp BP Pulse Ox 98.8 F 94 H 20 145/67 96 03/24/18 08:33 03/24/18 08:33 03/24/18 08:33 03/24/18 08:33 03/24/18 08:33 Intake and Output: 03/24/18 03/24/18 06:59 18:59 Intake Total 550 Balance 550 - Medications Medications: Current Medications Acetaminophen (Tylenol 325mg Tab) 650 mg PO Q6 PRN PRN Reason: Fever >100.4 F Last Admin: 03/21/18 21:49 Dose: 650 mg Docusate Sodium (Colace) 100 mg PO TID [facility] Last Admin: 03/23/18 17:40 Dose: 100 mg Famotidine (Pepcid) 20 mg PO BID [facility] Last Admin: 03/23/18 17:41 Dose: Not Given Heparin Sodium (Porcine) (Heparin) 5,000 units SC Q8 [facility] Last Admin: 03/24/18 05:56 Dose: 5,000 units Hydrocortisone (Cortizone 1% Cream) 0 gm TOP BID [facility] Last Admin: 03/23/18 17:41 Dose: 1 applic Hydromorphone HCl (Dilaudid) 0.5 mg IVP Q4H PRN PRN Reason: Pain, moderate (4-7) Last Admin: 03/23/18 13:34 Dose: 0.5 mg Hydromorphone HCl (Dilaudid) 1 mg IVP Q4H PRN PRN Reason: Pain, severe (8-10) Last Admin: 03/22/18 21:36 Dose: 1 mg Hydroxyzine HCl (Atarax) 25 mg PO Q6 PRN PRN Reason: Anxiety Last Admin: 03/21/18 00:24 Dose: 25 mg Meropenem 1 gm/ Sodium (Chloride) 100 mls @ 100 mls/hr IVPB Q8H [facility] PRN Reason: Protocol Last Admin: 03/24/18 03:10 Dose: 100 mls/hr Gentamicin Sulfate 80 mg/ (Sodium Chloride) 102 mls @ 200 mls/hr IVPB Q8H [facility] Last Admin: 03/24/18 02:06 Dose: 200 mls/hr Quetiapine Fumarate (Seroquel) 100 mg PO HS [facility] Last Admin: 03/23/18 21:32 Dose: 100 mg Saccharomyces Boulardii (Florastor) 250 mg PO BID [facility] Last Admin: 03/23/18 17:40 Dose: 250 mg Ziprasidone (Geodon Cap) 40 mg PO BID [facility] Last Admin: 03/23/18 17:40 Dose: 40 mg - Labs Labs: 03/23/18 08:36 03/23/18 08:36 PT 13.2 SECONDS (9.7-12.2) H 03/18/18 11:16 INR 1.2 03/18/18 11:16 APTT 36 SECONDS (21-34) H 03/18/18 11:16
[2018-03-24] MEDS: Saccharomyces Boulardi 250 mg Cap PO SCH (11:00)
[2018-03-24] MEDS: Hydrocortisone 1% Cream (30 GM) TOP SCH (11:00)
[2018-03-24 12:49] LABS: BASO # 0.1 K/uL (0.0-0.2); BASO % 0.6 % (0.0-2.0); EOS # 0.6 K/uL (0.0-0.7); EOS % 3.6 % (0.0-4.0); LYMPH # 5.2 K/uL (1.0-4.3); LYMPH % 33.2 % (20.0-40.0); MEAN CELL VOLUME 84.2 fL (81.0-99.0); MEAN CORPUSCULAR HEMOGLOBIN 27.8 pg (27.0-31.0); MEAN PLATELET VOLUME 7.9 fL (7.2-11.7); MONO # 1.5 K/uL (0.0-0.8); MONO % 9.4 % (0.0-10.0); NEUT # 8.3 K/uL (1.8-7.0); NEUT % 53.2 % (50.0-75.0); RBC 4.33 Mil/uL (3.80-5.20); RED CELL DISTRIBUTION WIDTH 15.5 % (11.5-14.5); WHITE BLOOD COUNT 15.7 K/uL (4.8-10.8)
--- NOTE | 2018-03-24 15:14 | CP.PCM.DIS ---
<GiannaomayraRudolph - Last Filed: 03/24/18 17:52> Provider - Provider Date of Admission: 03/15/18 10:12 Attending physician: Gurjit Goodman MD Time Spent in preparation of Discharge (in minutes): 45 Diagnosis - Discharge Diagnosis (1) Closed fracture of capitellum of left humerus Status: Resolved (2) Displaced fracture of head of left radius Status: Resolved (3) Fracture of left proximal ulna Status: Resolved (4) Pyelonephritis Status: Resolved (5) Schizophrenia Status: Chronic Hospital Course - Lab Results Lab Results: Micro Results 03/22/18 18:45 Urine,Clean Catch Urine Culture - Final No Growth (<1,000 CFU/ML) 03/17/18 21:30 Blood Blood Culture - Final NO GROWTH AFTER 5 DAYS 03/17/18 21:30 Blood Gram Stain - Final TEST NOT PERFORMED 03/17/18 22:00 Blood Blood Culture - Final NO GROWTH AFTER 5 DAYS 03/17/18 22:00 Blood Gram Stain - Final TEST NOT PERFORMED 03/15/18 14:10 Blood Blood Culture - Final NO GROWTH AFTER 5 DAYS 03/15/18 14:10 Blood Gram Stain - Final TEST NOT PERFORMED 03/15/18 14:40 Blood Blood Culture - Final NO GROWTH AFTER 5 DAYS 03/15/18 14:40 Blood Gram Stain - Final TEST NOT PERFORMED 03/17/18 21:48 Urine,Catheterized Urine Culture - Final No Growth (<1,000 CFU/ML) 03/15/18 14:10 Urine,Clean Catch Urine Culture - Final Escherichia Coli Most Recent Lab Values WBC 15.7 K/uL (4.8-10.8) H 03/24/18 11:33 RBC 4.33 Mil/uL (3.80-5.20) 03/24/18 11:33 Hgb 12.0 g/dL (11.0-16.0) 03/24/18 11:33 Hct 36.4 % (34.0-47.0) 03/24/18 11:33 MCV 84.2 fL (81.0-99.0) 03/24/18 11:33 MCH 27.8 pg (27.0-31.0) 03/24/18 11:33 MCHC 33.0 g/dL (33.0-37.0) 03/24/18 11:33 RDW 15.5 % (11.5-14.5) H 03/24/18 11:33 Plt Count 813 K/uL (130-400) H 03/24/18 11:33 MPV 7.9 fL (7.2-11.7) 03/24/18 11:33 Neut % (Auto) 53.2 % (50.0-75.0) 03/24/18 11:33 Lymph % (Auto) 33.2 % (20.0-40.0) 03/24/18 11:33 [place] % (Auto) 9.4 % (0.0-10.0) 03/24/18 11:33 Eos % (Auto) 3.6 % (0.0-4.0) 03/24/18 11:33 Baso % (Auto) 0.6 % (0.0-2.0) 03/24/18 11:33 Neut # (Auto) 8.3 K/uL (1.8-7.0) H 03/24/18 11:33 Lymph # (Auto) 5.2 K/uL (1.0-4.3) H 03/24/18 11:33 [place] # (Auto) 1.5 K/uL (0.0-0.8) H 03/24/18 11:33 Eos # (Auto) 0.6 K/uL (0.0-0.7) 03/24/18 11:33 Baso # (Auto) 0.1 K/uL (0.0-0.2) 03/24/18 11:33 Neutrophils % (Manual) 86 % (50-75) H 03/17/18 08:07 Band Neutrophils % 4 % (0-2) H 03/15/18 10:29 Lymphocytes % (Manual) 8 % (20-40) L 03/17/18 08:07 Monocytes % (Manual) 5 % (0-10) 03/17/18 08:07 Eosinophils % (Manual) 1 % (0-4) 03/17/18 08:07 Basophils % (Manual) 1 % (0-2) 03/16/18 07:56 Toxic Granulation Present 03/17/18 08:07 Platelet Estimate Normal (NORMAL) 03/17/18 08:07 Hypochromasia (manual) Slight 03/17/18 08:07 Anisocytosis (manual) Slight 03/15/18 10:29 PT 13.2 SECONDS (9.7-12.2) H 03/18/18 11:16 INR 1.2 03/18/18 11:16 APTT 36 SECONDS (21-34) H 03/18/18 11:16 pO2 48 mm/Hg (30-55) 03/17/18 11:24 VBG pH 7.34 (7.32-7.43) 03/17/18 11:24 VBG pCO2 35 mmHg (40-60) L 03/17/18 11:24 VBG HCO3 19.7 mmol/L 03/17/18 11:24 VBG Total CO2 20.0 mmol/L (22-28) L 03/17/18 11:24 VBG O2 Sat (Calc) 89.2 % (40-65) H 03/17/18 11:24 VBG Base Excess -6.1 mmol/L (0.0-2.0) L 03/17/18 11:24 VBG Potassium 3.3 mmol/L (3.6-5.2) L 03/17/18 11:24 Sodium 136.0 mmol/l (132-148) 03/17/18 11:24 Chloride 105.0 mmol/L (98-107) 03/17/18 11:24 Glucose 187 mg/dl (65-105) H 03/17/18 11:24 Lactate 1.8 mmol/L (0.7-2.1) 03/17/18 11:24 Sodium 138 mmol/L (132-148) 03/23/18 08:36 Potassium 3.9 mmol/L (3.6-5.2) 03/23/18 08:36 Chloride 101 mmol/L (98-107) 03/23/18 08:36 Carbon Dioxide 24 mmol/L (22-30) 03/23/18 08:36 Anion Gap 17 (10-20) 03/23/18 08:36 BUN 13 mg/dL (7-17) 03/23/18 08:36 Creatinine 0.7 mg/dL (0.7-1.2) 03/23/18 08:36 Est GFR ( Amer) > 60 03/23/18 08:36 Est GFR (Non-Af Amer) > 60 03/23/18 08:36 POC Glucose (mg/dL) 91 mg/dL (65-110) 03/24/18 11:51 Random Glucose 113 mg/dL (65-105) H 03/23/18 08:36 Hemoglobin A1c 5.7 % (4.2-6.5) 03/16/18 07:56 Calcium 8.8 mg/dl (8.6-10.4) 03/23/18 08:36 Phosphorus 3.6 mg/dL (2.5-4.5) 03/23/18 08:36 Magnesium 2.3 mg/dL (1.6-2.3) 03/23/18 08:36 Total Bilirubin 0.5 mg/dL (0.2-1.3) 03/23/18 08:36 AST 31 U/L (14-36) 03/23/18 08:36 ALT 45 U/L (9-52) 03/23/18 08:36 Alkaline Phosphatase 240 U/L (38-126) H 03/23/18 08:36 Total Protein 7.7 g/dL (6.3-8.3) 03/23/18 08:36 Albumin 3.7 g/dL (3.5-5.0) 03/23/18 08:36 Globulin 4.1 gm/dL (2.2-3.9) H 03/23/18 08:36 Albumin/Globulin Ratio 0.9 (1.0-2.1) L 03/23/18 08:36 Triglycerides 141 mg/dL (0-149) 03/16/18 07:56 Cholesterol 153 mg/dL (0-199) 03/16/18 07:56 LDL Cholesterol Direct 92 mg/dL (0-129) 03/16/18 07:56 HDL Cholesterol 25 mg/dL (30-70) L 03/16/18 07:56 Procalcitonin 0.43 NG/ML (0.19-0.49) 03/23/18 08:36 Free T4 0.97 ng/dL (0.78-2.19) 03/16/18 07:56 TSH 3rd Generation 0.31 mIU/L (0.46-4.68) L 03/16/18 07:56 Venous Blood Potassium 3.3 mmol/L (3.6-5.2) L 03/17/18 11:24 Urine Color Straw (YELLOW) 03/22/18 18:45 Urine Clarity Clear (Clear) 03/22/18 18:45 Urine pH 6.0 (5.0-8.0) 08 18:45 Ur Specific Bruner 1.002 (1.003-1.030) L 03/22/18 18:45 Urine Protein Negative mg/dL (NEGATIVE) 03/22/18 18:45 Urine Glucose (UA) Normal mg/dL (Normal) 03/22/18 18:45 Urine Ketones Negative mg/dL (NEGATIVE) 03/22/18 18:45 Urine Blood 1+ (NEGATIVE) H 03/22/18 18:45 Urine Nitrate Negative (NEGATIVE) 03/22/18 18:45 Urine Bilirubin Negative (NEGATIVE) 03/22/18 18:45 Urine Urobilinogen Normal mg/dL (0.2-1.0) 03/22/18 18:45 Ur Leukocyte Esterase Neg Raudel/uL (Negative) 03/22/18 18:45 Urine WBC (Auto) < 1 /hpf (0-5) 03/22/18 18:45 Urine RBC (Auto) 1 /hpf (0-3) 03/22/18 18:45 Ur Squamous Epith Cells < 1 /hpf (0-5) 03/22/18 18:45 Urine Bacteria Rare (<OCC) 03/15/18 10:03 Hepatitis A IgM Ab Negative (NEGATIVE) 03/16/18 07:56 Hep Bs Antigen Negative (NEGATIVE) 03/16/18 07:56 Hep B Core IgM Ab Negative (NEGATIVE) 03/16/18 07:56 Hepatitis C Antibody Negative (NEGATIVE) 03/16/18 07:56 HIV 1&2 Antibody Screen Negative (NEGATIVE) 03/19/18 14:13 Blood Type O POSITIVE 03/15/18 10:29 Antibody Screen Negative 03/15/18 10:29 - Hospital Course Hospital Course: CC: Left arm pain after fall Patient is a 58 y.o female who presents to ED for evaluation of left arm pain after she fell at work. 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 She started walking towards her colleague where she slipped on the ground which she attributes to the recent mopping of the floor because she says it was slippery. Patient reports that she did not her head or have any LOC. She states that when she realized she was falling she used her left arm to brace the fall because she did not want to hit her head. Patient reports no dizziness or lightheadedness prior to this fall. Patient reports a fall in the past but she did not need to be hospitalized. After the fall, patient states she had 10/10 pain in left arm non-radiating and constant in nature with no numbness/tingling. Patient states she has limited range of motion of her left upper extremity with pain elicited upon motion. Patient reports she was at [facility] in December for treatment of pyelonephritis. Upon discharge patient was given a course of antibiotics to complete which she states she completed. PMH- gastritis, pyelonephritis, hx of schiozphrenia PSH- hysterectomy (2005 in [facility]) FH- no Hx offered Meds- Lisinopril, Sertaline Allergies- NKDA Social Hx- Denies tobacco, drug, alcohol use; Lives at home with mom/dad, 3 brothers PMD: Dr. Knight (clinic) Pharmacy: [facility] Hospital Course: Pt admitted for traumatic elbow fracture. Pt was diagnosed with E.Coli Pyelonphritis. Pt treated with IV Meropenem and improved. Pt was operated on sun 03/20 for elbow fracture fixation surgery. Patient stabilized and held until afrebrile for 48hrs. The following instructions were explained to patient and a copy will need to be provided to her upon discharge: 1). Schedule follow up appointment with your primary care physician Dr. Gabino Corrales to take place in the next 7 days. Through his office you will need to have repeat blood work to make sure that your liver enzymes are coming down. You will also need to have repeat ultrasound of your heart in 3 months to make sure that the fluid around your heart has resolved. 2). Schedule follow up appointment with your Oncologist Dr. Desai to take place during the week of 03/28/18 to discuss whether you want to continue Chemotherapy and if so then you will have to have arrangement made to have the Chemotherapy Port placed back in. 3). The following prescriptions were provided to you and you will need to have them filled at your pharmacy on your way home from the hospital: Lisinopril/HCTZ 20/12.5 mg, 1 tablet by mouth 1 time a day (8AM), Dispense #30, NO refills Lexapro 20 mg, 1 tablet by mouth 1 time a day (8AM), Dispense #30, NO refills Ciprofloxacin 500 mg, 1 tablet by mouth 2 times a day (8 AM and 8 PM) through , Dispense #20, NO refills 4). STOP taking Crestor until your liver enzymes have normalized. Again you need to have weekly blood work through Dr. Corrales's office to make sure that the liver enzymes are coming down. 5). Please have a kinyarwanda yogurt with a good source of good bacteria everyday with lunch (12 to 1 PM) through May 04, 2018 to make sure that the good bacteria are brought back to your colon. 6). Please do not exercise or lift anything heavy and please be careful going up and down stairs as the Ciprofloxacin can cause inflammation of your tendons and possible rupture. 7). Please remain well hydrated with water throughout the day. 8). Please create a medical folder for yourself containing these instructions and the all of the discharge paperwork that was provided to you at the time of your discharge and bring this folder with you to all of your future appointments with any health care provider. 9). Please take care and be well. Gurjit Goodman D.O. Discharge Exam - Head Exam Head Exam: ATRAUMATIC, NORMAL INSPECTION - Eye Exam Eye Exam: EOMI, Normal appearance. absent: Scleral icterus - ENT Exam ENT Exam: Mucous Membranes Moist, Normal Exam - Neck Exam Neck exam: Full Rom - Respiratory Exam Respiratory Exam: Clear to PA & Lateral, NORMAL BREATHING PATTERN. absent: Wheezes, Respiratory Distress - Cardiovascular Exam Cardiovascular Exam: RRR, +S2. absent: Diastolic murmur, JVD, Systolic Murmur - GI/Abdominal Exam GI & Abdominal Exam: Normal Bowel Sounds, Soft. absent: Guarding, Tenderness - Extremities Exam Extremities exam: pedal pulses present Additional comments: Left arm appears normal color. Finger sensation intact on left hand - Back Exam Back exam: NORMAL INSPECTION. absent: CVA tenderness (L), CVA tenderness (R) - Neurological Exam Neurological exam: CN II-XII Intact, Normal Gait, Oriented x3 - Psychiatric Exam Psychiatric exam: Normal Affect, Normal Mood - Skin Skin Exam: Normal Color, Warm Discharge Plan - Discharge Medications Prescriptions: Ciprofloxacin HCl [Cipro] 500 mg PO BID #60 tab Docusate Sodium [Colace] 100 mg PO BID #60 capsule Lisinopril [Prinivil] 5 mg PO DAILY #30 tablet oxyCODONE/Acetaminophen [Percocet 5/325 mg Tab] 1 ea PO Q8 PRN #15 tab PRN Reason: Pain, Severe (8-10) QUEtiapine [Seroquel] 100 mg PO HS #30 tab Ziprasidone HCl [Geodon] 40 mg PO BID #60 capsule - Follow Up Plan Condition: STABLE Disposition: HOME/ ROUTINE Instructions: Ciprofloxacin (Systemic), Forearm Fracture (DC), Radius Fracture (DC), Oxycodone and Acetaminophen, Open Reduction and Internal Fixation Surgery (DC), Managing Pain After Surgery Additional Instructions: Discharge instructions were explained to patient in [place] with the help of Nurse Peggy The following instructions will need to be provided to patient in [place] upon discharge: 1). Please schedule follow up with Orthopedic Surgeon Dr. Garza for week of March 28, 2018. His office number is [phone]. 2). Please schedule follow up appointment with your primary care physicians at [facility] by calling [phone] to schedule an appointment to take place in 7 to 10 days. They will help to coordinate your health care. 3). Please have the following prescription filled at your pharmacy on your way home from the hospital: Seroquel 100 mg, 1 tablet by mouth 1 time a day at bedtime (10 PM), Dispense #30 , NO refill Geodon 40 mg, 1 tablet by mouth 2 times a day (8AM and 8 PM), Dispense #60, NO refill Atorvastatin 5 mg, 1 tablet by mouth 1 time a day with dinner (8 PM), Dispense # 30, NO refill Percocet 5/325 mg, 1 tablet by mouth every 8 hours ONLY NEEDED for severe left arm pain, Dispense #15, NO refill Ciprofloxacin 500 mg, 1 tablet by mouth 2 times a day (8AM and 8PM) until finished, Dispense #12, NO refills Lisinopril 5 mg, 1 tablet by mouth 1 time a day (8 AM), Dispense #30, NO refills Colace 100 mg, 1 tablet by mouth 2 times a day (8AM and 8 PM), Dispense #60, NO refills 4). Please be carefull going up and down the stairs and do not lift anything heavy while on Ciprofloxacin. 5). Please make sure to have a yogurt every day at lunch time (12 PM to 1 PM) for the next 36 days as this will help to regrow the good bacteria in your colon. 6). Please stay well hydrated with water throughout the day. 7). Please make sure to have 8 ounces of prune juice with your breakfast only as needed if you have not moved your bowels in 3 days. 8). Some one from your Worker's Compensation insurance will be contacting you to set up physical therapy. 9). Please take care and be well. Nanette MerrittO. Las siguientes instrucciones debern proporcionarse al paciente en espaol al momento del carol: 1). Por favor programe un seguimiento con el Cirotilia Ortopbev Garza para la semana del 2017. [place] nmero de oficina es [phone]. 2). Maura shanna daquan de seguimiento con nikolai mdicos de atencin primaria en [facility] llamando al [phone] para programar shanna daquan para que se realice en 7 a 10 rojas. Ayudarn a coordinar morrow atencin m dica. 3). Por favor, complete la siguiente receta en morrow farmacia en morrow jacy a casa desde el hospital: Seroquel 100 mg, 1 tableta por va oral 1 vez al da a la hora de acostarse (10 PM), Dispensa # 30, NO recarga Geodon 40 mg, 1 tableta por va oral 2 veces al da (8 AM y 8 PM), Dispensar # 60, NO rellenar Atorvastatin 5 mg, 1 tableta por va oral 1 vez al da con reptile keeper (8 PM), dispensacin # 30, sin recarga Percocet 5/325 mg, 1 tableta por va oral cada 8 horas SOLAMENTE SEGN SEA NECESARIO para el dolor aleena en el avelinao lacy, dispensar # 15, NO rellenar Ciprofloxacina 500 mg, 1 tableta por va oral 2 veces al da (8AM y 8PM) hasta que finalice, Dispensa # 12, NO vuelve a llenar Lisinopril 5 mg, 1 tableta por va oral 1 vez al da (8 AM), Dispensa # 30, NO recambios Colace 100 mg, 1 tableta por va oral 2 veces al da (8 AM y 8 PM), Suministro # 60, NO recambios 4). Por favor, tenga cuidado de subir y bajar las escaleras y no levante nada pesado mientras est tomando ciprofloxacina. 5). Asegrese de zoe un yogurt todos los rojas a la hora del almuerzo (de 12: 00 a 13:00 h) karine los prximos 36 rojas, ya que esto ayudar a regenerar las bacterias buenas en el colon. 6). Por favor mantente león hidratado con agua karine todo el da. 7). Por favor, asegrese de zoe 8 onzas de jugo de ciruela con morrow desayuno solo si es necesario si no avilez movido nikolai intestinos en 3 rojas. 8). Alguien de morrow seguro de [employer]ens[employer] al Trabajador se pondr en contacto con usted para establecer la terapia fsica. 9). Por favor cudate y estate león. Gurjit Goodman D.O. Referrals: [facility] [Outside] Pradip Garza MD [Staff Provider] - <Gurjit Goodman - Last Filed: 03/24/18 18:55> Provider - Provider Date of Admission: 03/15/18 10:12 Attending physician: Gurjit Goodman MD Time Spent in preparation of Discharge (in minutes): 40 Hospital Course - Lab Results Lab Results: Micro Results 03/22/18 18:45 Urine,Clean Catch Urine Culture - Final No Growth (<1,000 CFU/ML) 03/17/18 21:30 Blood Blood Culture - Final NO GROWTH AFTER 5 DAYS 03/17/18 21:30 Blood Gram Stain - Final TEST NOT PERFORMED 03/17/18 22:00 Blood Blood Culture - Final NO GROWTH AFTER 5 DAYS 03/17/18 22:00 Blood Gram Stain - Final TEST NOT PERFORMED 03/15/18 14:10 Blood Blood Culture - Final NO GROWTH AFTER 5 DAYS 03/15/18 14:10 Blood Gram Stain - Final TEST NOT PERFORMED 03/15/18 14:40 Blood Blood Culture - Final NO GROWTH AFTER 5 DAYS 03/15/18 14:40 Blood Gram Stain - Final TEST NOT PERFORMED 03/17/18 21:48 Urine,Catheterized Urine Culture - Final No Growth (<1,000 CFU/ML) 03/15/18 14:10 Urine,Clean Catch Urine Culture - Final Escherichia Coli Most Recent Lab Values WBC 15.7 K/uL (4.8-10.8) H 03/24/18 11:33 RBC 4.33 Mil/uL (3.80-5.20) 03/24/18 11:33 Hgb 12.0 g/dL (11.0-16.0) 03/24/18 11:33 Hct 36.4 % (34.0-47.0) 03/24/18 11:33 MCV 84.2 fL (81.0-99.0) 03/24/18 11:33 MCH 27.8 pg (27.0-31.0) 03/24/18 11:33 MCHC 33.0 g/dL (33.0-37.0) 03/24/18 11:33 RDW 15.5 % (11.5-14.5) H 03/24/18 11:33 Plt Count 813 K/uL (130-400) H 03/24/18 11:33 MPV 7.9 fL (7.2-11.7) 03/24/18 11:33 Neut % (Auto) 53.2 % (50.0-75.0) 03/24/18 11:33 Lymph % (Auto) 33.2 % (20.0-40.0) 03/24/18 11:33 Dillingham % (Auto) 9.4 % (0.0-10.0) 03/24/18 11:33 Eos % (Auto) 3.6 % (0.0-4.0) 03/24/18 11:33 Baso % (Auto) 0.6 % (0.0-2.0) 03/24/18 11:33 Neut # (Auto) 8.3 K/uL (1.8-7.0) H 03/24/18 11:33 Lymph # (Auto) 5.2 K/uL (1.0-4.3) H 03/24/18 11:33 Dillingham # (Auto) 1.5 K/uL (0.0-0.8) H 03/24/18 11:33 Eos # (Auto) 0.6 K/uL (0.0-0.7) 03/24/18 11:33 Baso # (Auto) 0.1 K/uL (0.0-0.2) 03/24/18 11:33 Neutrophils % (Manual) 86 % (50-75) H 03/17/18 08:07 Band Neutrophils % 4 % (0-2) H 03/15/18 10:29 Lymphocytes % (Manual) 8 % (20-40) L 03/17/18 08:07 Monocytes % (Manual) 5 % (0-10) 03/17/18 08:07 Eosinophils % (Manual) 1 % (0-4) 03/17/18 08:07 Basophils % (Manual) 1 % (0-2) 03/16/18 07:56 Toxic Granulation Present 03/17/18 08:07 Platelet Estimate Normal (NORMAL) 03/17/18 08:07 Hypochromasia (manual) Slight 03/17/18 08:07 Anisocytosis (manual) Slight 03/15/18 10:29 PT 13.2 SECONDS (9.7-12.2) H 03/18/18 11:16 INR 1.2 03/18/18 11:16 APTT 36 SECONDS (21-34) H 03/18/18 11:16 pO2 48 mm/Hg (30-55) 03/17/18 11:24 VBG pH 7.34 (7.32-7.43) 03/17/18 11:24 VBG pCO2 35 mmHg (40-60) L 03/17/18 11:24 VBG HCO3 19.7 mmol/L 03/17/18 11:24 VBG Total CO2 20.0 mmol/L (22-28) L 03/17/18 11:24 VBG O2 Sat (Calc) 89.2 % (40-65) H 03/17/18 11:24 VBG Base Excess -6.1 mmol/L (0.0-2.0) L 03/17/18 11:24 VBG Potassium 3.3 mmol/L (3.6-5.2) L 03/17/18 11:24 Sodium 136.0 mmol/l (132-148) 03/17/18 11:24 Chloride 105.0 mmol/L (98-107) 03/17/18 11:24 Glucose 187 mg/dl (65-105) H 03/17/18 11:24 Lactate 1.8 mmol/L (0.7-2.1) 03/17/18 11:24 Sodium 138 mmol/L (132-148) 03/23/18 08:36 Potassium 3.9 mmol/L (3.6-5.2) 03/23/18 08:36 Chloride 101 mmol/L (98-107) 03/23/18 08:36 Carbon Dioxide 24 mmol/L (22-30) 03/23/18 08:36 Anion Gap 17 (10-20) 03/23/18 08:36 BUN 13 mg/dL (7-17) 03/23/18 08:36 Creatinine 0.7 mg/dL (0.7-1.2) 03/23/18 08:36 Est GFR ( Amer) > 60 03/23/18 08:36 Est GFR (Non-Af Amer) > 60 03/23/18 08:36 POC Glucose (mg/dL) 91 mg/dL (65-110) 03/24/18 11:51 Random Glucose 113 mg/dL (65-105) H 03/23/18 08:36 Hemoglobin A1c 5.7 % (4.2-6.5) 03/16/18 07:56 Calcium 8.8 mg/dl (8.6-10.4) 03/23/18 08:36 Phosphorus 3.6 mg/dL (2.5-4.5) 03/23/18 08:36 Magnesium 2.3 mg/dL (1.6-2.3) 03/23/18 08:36 Total Bilirubin 0.5 mg/dL (0.2-1.3) 03/23/18 08:36 AST 31 U/L (14-36) 03/23/18 08:36 ALT 45 U/L (9-52) 03/23/18 08:36 Alkaline Phosphatase 240 U/L (38-126) H 03/23/18 08:36 Total Protein 7.7 g/dL (6.3-8.3) 03/23/18 08:36 Albumin 3.7 g/dL (3.5-5.0) 03/23/18 08:36 Globulin 4.1 gm/dL (2.2-3.9) H 03/23/18 08:36 Albumin/Globulin Ratio 0.9 (1.0-2.1) L 03/23/18 08:36 Triglycerides 141 mg/dL (0-149) 03/16/18 07:56 Cholesterol 153 mg/dL (0-199) 03/16/18 07:56 LDL Cholesterol Direct 92 mg/dL (0-129) 03/16/18 07:56 HDL Cholesterol 25 mg/dL (30-70) L 03/16/18 07:56 Procalcitonin 0.43 NG/ML (0.19-0.49) 03/23/18 08:36 Free T4 0.97 ng/dL (0.78-2.19) 03/16/18 07:56 TSH 3rd Generation 0.31 mIU/L (0.46-4.68) L 03/16/18 07:56 Venous Blood Potassium 3.3 mmol/L (3.6-5.2) L 03/17/18 11:24 Urine Color Straw (YELLOW) 03/22/18 18:45 Urine Clarity Clear (Clear) 03/22/18 18:45 Urine pH 6.0 (5.0-8.0) 03/22/18 18:45 Ur Specific Bruner 1.002 (1.003-1.030) L 03/22/18 18:45 Urine Protein Negative mg/dL (NEGATIVE) 03/22/18 18:45 Urine Glucose (UA) Normal mg/dL (Normal) 03/22/18 18:45 Urine Ketones Negative mg/dL (NEGATIVE) 03/22/18 18:45 Urine Blood 1+ (NEGATIVE) H 03/22/18 18:45 Urine Nitrate Negative (NEGATIVE) 03/22/18 18:45 Urine Bilirubin Negative (NEGATIVE) 03/22/18 18:45 Urine Urobilinogen Normal mg/dL (0.2-1.0) 03/22/18 18:45 Ur Leukocyte Esterase Neg Raudel/uL (Negative) 03/22/18 18:45 Urine WBC (Auto) < 1 /hpf (0-5) 03/22/18 18:45 Urine RBC (Auto) 1 /hpf (0-3) 03/22/18 18:45 Ur Squamous Epith Cells < 1 /hpf (0-5) 03/22/18 18:45 Urine Bacteria Rare (<OCC) 03/15/18 10:03 Hepatitis A IgM Ab Negative (NEGATIVE) 03/16/18 07:56 Hep Bs Antigen Negative (NEGATIVE) 03/16/18 07:56 Hep B Core IgM Ab Negative (NEGATIVE) 03/16/18 07:56 Hepatitis C Antibody Negative (NEGATIVE) 03/16/18 07:56 HIV 1&2 Antibody Screen Negative (NEGATIVE) 03/19/18 14:13 Blood Type O POSITIVE 03/15/18 10:29 Antibody Screen Negative 03/15/18 10:29 Attending/Attestation - Attestation I have personally seen and examined this patient.: Yes I have fully participated in the care of the patient.: Yes I have reviewed all pertinent clinical information, including history, physical exam and plan: Yes Notes (Text): 03/24/18 18:55 Please also see my progress note from 03/24/18. Gurjit Goodman D.O.
== END 2018-03-24 13:01 | disposition home or self-care (01) | DRG 511 ==
LOC: C.ER 09:03 → C.9E 10:12 → C.6T 10:37
PROVIDERS: ADMIT Family Medicine; ATTEND Family Medicine
PROC: 0PSJ04Z Reposition Left Radius with Internal Fixation Device, Open Approach (ICD-10-PCS; principal; 2018-03-15)
PROC: 0PSL04Z Reposition Left Ulna with Internal Fixation Device, Open Approach (ICD-10-PCS; 2018-03-15)
PROC: 01N40ZZ Release Ulnar Nerve, Open Approach (ICD-10-PCS; 2018-03-15)
PROC: 0PBJ0ZZ Excision of Left Radius, Open Approach (ICD-10-PCS; 2018-03-15)
PROC: 0PBL0ZZ Excision of Left Ulna, Open Approach (ICD-10-PCS; 2018-03-15)
DX: S52.272A Monteggia's fracture of left ulna, initial encounter for closed fracture (principal); N10 Acute pyelonephritis; G56.22 Lesion of ulnar nerve, left upper limb; S52.122A Displaced fracture of head of left radius, initial encounter for closed fracture; W10.9XXA Fall (on) (from) unspecified stairs and steps, initial encounter; B00.1 Herpesviral vesicular dermatitis; E74.39 Other disorders of intestinal carbohydrate absorption; F20.9 Schizophrenia, unspecified; E87.5 Hyperkalemia; I10 Essential (primary) hypertension; E78.00 Pure hypercholesterolemia, unspecified; K21.9 Gastro-esophageal reflux disease without esophagitis; K76.0 Fatty (change of) liver, not elsewhere classified

== ENCOUNTER 2018-04-12 15:00 | Emergency (ER) | payer OTHER ==
[2018-04-12 15:28] VITALS: BP 129/80; PULSE 88; RESP 20; TEMP 98.1; O2SAT 96
--- NOTE | 2018-04-12 16:02 | C.PDOC ---
History Of Present Illness 58 year old female patient with hx of DM presents to the ER with c/o left arm pain, swelling and warmth. Patient reports she fell and fractured her left elbow , but she was seen and treated. Patient reports she has an appointment with her doctor next week. Patient states she also wants a refill on oxycodone and Tylenol. Patient denies nausea, vomiting, weakness, numbness, fever and chills. Chief Complaint (Nursing): Upper Extremity Problem/Injury History Per: Patient History/Exam Limitations: no limitations Onset/Duration Of Symptoms: Hrs Current Symptoms Are (Timing): Still Present Past Medical History Reviewed: Historical Data, Nursing Documentation, Vital Signs Vital Signs: Last Vital Signs Temp 98.1 F 04/12/18 15:24 Pulse 88 04/12/18 15:24 Resp 20 04/12/18 15:24 BP 129/80 04/12/18 15:24 Pulse Ox 96 04/15/18 21:49 - Medical History PMH: Gastritis, HTN, Schizophrenia - [facility] Procedures EXCISION OF LEFT RADIUS, OPEN APPROACH (03/15/18) EXCISION OF LEFT ULNA, OPEN APPROACH (03/15/18) RELEASE ULNAR NERVE, OPEN APPROACH (03/15/18) REPOSITION LEFT RADIUS WITH INT FIX, OPEN APPROACH (03/15/18) REPOSITION LEFT ULNA WITH INT FIX, OPEN APPROACH (03/15/18) Family History: States: No Known Family Hx - Social History Hx Tobacco Use: No Hx Alcohol Use: No Hx Substance Use: No - Immunization History Hx Tetanus Toxoid Vaccination: No Hx Influenza Vaccination: No Hx Pneumococcal Vaccination: No Review Of Systems Except As Marked, All Systems Reviewed And Found Negative. Constitutional: Negative for: Fever, Chills Gastrointestinal: Negative for: Nausea, Vomiting, Diarrhea Musculoskeletal: Positive for: Arm Pain (left; swelling and warmth) Neurological: Negative for: Weakness, Numbness Physical Exam - Physical Exam Appears: Non-toxic, No Acute Distress Skin: Normal Color, Warm, Dry Cardiovascular: Rhythm Regular Respiratory: Normal Breath Sounds Extremity: Normal ROM (x4), Capillary Refill (<2 sec), No Deformity, Swelling ( mild swelling on dorsum of L hand ), Other (L arm wound with steri-strips. ) Pulses: Left Radial: Normal, Right Radial: Normal Neurological/Psych: Oriented x3, Normal Speech ED Course And Treatment O2 Sat by Pulse Oximetry: 96 (RA) Pulse Ox Interpretation: Normal Medical Decision Making Medical Decision Making: Impression: injury of left arm Plans: -- Toradol Reassess: Patient is resting comfortably. Tolerating PO. Patient is given prescription for pain medications and will be discharged. Patient is instructed to go to her appointment for f/u. Disposition - Disposition Referrals: [facility] at [facility] [place]Outside] [facility] at [facility] [Outside] [facility] [Outside] Disposition: HOME/ ROUTINE Disposition Time: 16:23 Condition: GOOD Prescriptions: Ibuprofen [Motrin] 600 mg PO Q6 5 Days #20 tab Instructions: Forearm Fracture (DC) Forms: [employer] (Romanian) - POA Location Of Wound: old forearm fracture - Clinical Impression Clinical Impression: Fracture of bone - Scribe Statement The provider has reviewed the documentation as recorded by the Pauletteibjaky Garvey Do Provider Attestation: All medical record entries made by the Scribe were at my direction and personally dictated by me. I have reviewed the chart and agree that the record accurately reflects my personal performance of the history, physical exam, medical decision making, and the department course for this patient. I have also personally directed, reviewed, and agree with the discharge instructions and disposition.
== END 2018-04-12 16:23 | disposition home or self-care (01) ==
LOC: C.ER 15:00
DX: S42.402G Unspecified fracture of lower end of left humerus, subsequent encounter for fracture with delayed healing (principal); W19.XXXD Unspecified fall, subsequent encounter
CPT/HCPCS: 96372; 99284; J1885

== ENCOUNTER 2018-09-27 10:34 | Outpatient (CLI) | payer SELFPAY | END 2018-09-27 10:35 | disposition home or self-care (01) | LOC: C.USIC 10:34 ==